=== PATIENT | male | born 1950 | race Caucasian/White ===

== ENCOUNTER → 2024-10-17 14:03 | Outpatient (BNVA) | payer MEDICARE, SELFPAY | PROVIDERS: Family Provider Physician Assistant Medical; PCP Physician Assistant Medical; Referring Provider Family Medicine; Visit Provider Psychiatry & Neurology Neurology | DX: R53.1 Weakness (principal); G62.9 Polyneuropathy, unspecified; Z91.81 History of falling | CPT/HCPCS: 95885; 95910 ==

== ENCOUNTER → 2024-11-01 11:02 | Outpatient (BNVA) | payer MEDICARE, SELFPAY | PROVIDERS: Family Provider Physician Assistant Medical; PCP Physician Assistant Medical; Referring Provider Nurse Practitioner Family; Visit Provider Psychiatry & Neurology Neurology | DX: G62.9 Polyneuropathy, unspecified (principal); M54.9 Dorsalgia, unspecified; R53.1 Weakness; Z86.73 Personal history of transient ischemic attack (TIA), and cerebral infarction without residual deficits | CPT/HCPCS: 99203 ==

== ENCOUNTER → 2025-03-13 09:59 | Outpatient (BNVA) | payer MEDICARE, OTHER, SELFPAY | PROVIDERS: Family Provider Physician Assistant Medical; PCP Physician Assistant Medical; Visit Provider Internal Medicine Cardiovascular Disease | DX: I10 Essential (primary) hypertension (principal); Z79.82 Long term (current) use of aspirin; R00.1 Bradycardia, unspecified; Z86.73 Personal history of transient ischemic attack (TIA), and cerebral infarction without residual deficits; R07.9 Chest pain, unspecified | CPT/HCPCS: 93005; 99204 ==

== ENCOUNTER → 2025-05-15 10:02 | Outpatient (BNVA) | payer MEDICARE, OTHER, SELFPAY | PROVIDERS: Family Provider Physician Assistant Medical; PCP Physician Assistant Medical; Visit Provider Internal Medicine Cardiovascular Disease | DX: R00.1 Bradycardia, unspecified (principal); Z86.73 Personal history of transient ischemic attack (TIA), and cerebral infarction without residual deficits; I10 Essential (primary) hypertension | CPT/HCPCS: 99214 ==

== ENCOUNTER 2025-06-10 09:39 | Observation (INO) | payer MEDICARE, OTHER, SELFPAY ==
[2025-06-10] VITALS (9 sets, daily range): BP systolic 115–151; BP diastolic 73–90; PULSE 54–143; RESP 12–19; TEMP 36.4–37; O2SAT 90–96; BMI 21.8; BMI 22.6
--- NOTE | 2025-06-10 09:40 | CTR_ITS ---
PROCEDURE INFORMATION: Exam: CT Head Without Contrast Exam date and time: 06/10/2025 9:58 AM Age: 74 years old Clinical indication: Syncope and collapse TECHNIQUE: Imaging protocol: Computed tomography of the head without contrast. Radiation optimization: All CT scans at this facility use at least one of these dose optimization techniques: automated exposure control; mA and/or kV adjustment per patient size (includes targeted exams where dose is matched to clinical indication); or iterative reconstruction. COMPARISON: No relevant prior studies available. FINDINGS: Brain: Age related diffuse parenchymal volume loss. There are bilateral periventricular white matter and centrum semiovale hypodensities, consistent with chronic ischemic small vessel disease. Old lacunar infarct in the right basal ganglia. No recent infarct, intracranial bleed or mass effect. Cerebral ventricles: Ex vacuo dilatation of the ventricles. Paranasal sinuses: Frothy secretions in the right sphenoid sinus. Mucosal disease of the right frontal sinus. Mastoid air cells: Visualized mastoid air cells are well aerated. Orbital cavities: Post bilateral cataract surgery. Bones: Unremarkable. No acute fracture. Soft tissues: Unremarkable. CT/CT head wo con* [id number] IMPRESSION: No large territorial infarct or intracranial bleed.
--- NOTE | 2025-06-10 09:40 | XRR_ITS ---
PROCEDURE INFORMATION: Exam: XR Chest Exam date and time: 06/10/2025 9:44 AM Age: 74 years old Clinical indication: Other: Syncope TECHNIQUE: Imaging protocol: Radiologic exam of the chest. Views: 1 view. COMPARISON: No relevant prior studies available. FINDINGS: Lungs: Bibasilar atelectasis. There is no evidence of focal pulmonary consolidation. Pleural spaces: Unremarkable. No pleural effusion. No pneumothorax. Heart/Mediastinum: Unremarkable. No cardiomegaly. Vasculature: There are aortic arch calcifications. Bones/joints: Moderate degenerative disease of bilateral acromioclavicular joints. There are mild degenerative changes of the glenohumeral joint. XR/XR chest 1V portable [id number] IMPRESSION: No acute cardiopulmonary process.
--- NOTE | 2025-06-10 09:40 | ECG_ITS ---
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 Measurements Intervals [place] Rate: 57 P: 19 NV: 150 QRS: -24 QRSD: 107 T: 92 QT: 445 QTc: 435 Interpretive Statements SINUS BRADYCARDIA BORDERLINE LEFT AXIS DEVIATION [QRS AXIS < -20] MINIMAL VOLTAGE CRITERIA FOR LVH, CONSIDER NORMAL VARIANT [MEETS CRITERIA IN ONE OF: R(aVL), S(V1), R(V5), R(V5/V6)+S(V1)] NONSPECIFIC T-WAVE ABNORMALITY Compared to ECG 03/13/2025 10:04:03 No significant changes Electronically Signed On 06-10-2025 17:23:56 SOFT WORK WRAPPER LAYER AND EXAMINER by Jose Huber M.D. [email or web address]
--- OUTSIDE RECORDS SUMMARY | 2025-06-10 09:46 | XMS_ITS | Encounter Summary ---
Author Organization [facility] Address [address] [place] [address] Care Team Providers Care Jockey Valet Name Role Phone Demetrice Breaux MD Primary Care Provider +1- [phone] Encounter Details Date Type Department Care Team (Latest Contact Info) Description 12/21/2001 Outpatient Historical [facility] Family Medicine [address] [phone] Leoncio Napier DO NO ADDRESS ON FILE Pain in limb (Primary Dx) Social History Tobacco Use Types Packs/Day Years Used Date Smoking Tobacco: Never Assessed Sex and Gender Information Value Date Recorded Sex Assigned at Not on file 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
--- OUTSIDE RECORDS SUMMARY | 2025-06-10 09:46 | XMS_ITS | Encounter Summary ---
Author Organization [facility] Address [address] [place] [address] Care Team Providers Care Insurance Law Specialist Name Role Phone Demetrice Breaux MD Primary Care Provider [phone]- [phone] Encounter Details Date Type Department Care Team (Latest Contact Info) Description 07/29/1999 Outpatient Historical [facility]- [facility] [address] [place] [address] Leoncio Napier, NO ADDRESS ON FILE Urticaria, unspecified (Primary Dx) Social History Tobacco Use Types Packs/Day Years Used Date Smoking Tobacco: Never Assessed Sex and Gender Information Value Date Recorded Sex Assigned at Not on file 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
--- OUTSIDE RECORDS SUMMARY | 2025-06-10 09:46 | XMS_ITS | Encounter Summary ---
Author Organization [facility] Address [address] 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
--- OUTSIDE RECORDS SUMMARY | 2025-06-10 09:46 | XMS_ITS | Encounter Summary ---
Author Organization [facility] Address [address] [place] [address] Care Team Providers Care Bill Hiker Name Role Phone Demetrice Breaux MD Primary Care Provider +1- [phone] Encounter Details Date Type Department Care Team (Latest Contact Info) Description 08/09/1998 Outpatient Historical [facility] Family Medicine [address] [address] Leoncio Napier DO NO ADDRESS ON FILE Acute sinusitis, unspecified (Primary Dx) Social History Tobacco Use Types Packs/Day Years Used Date Smoking Tobacco: Never Assessed Sex and Gender Information Value Date Recorded Sex Assigned at Not on file 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
--- OUTSIDE RECORDS SUMMARY | 2025-06-10 09:46 | XMS_ITS | Encounter Summary ---
Author Organization [facility] Address [address] [place] [address] Care Team Providers Care Engine House Helper Name Role Phone Demetrice Breaux MD Primary Care Provider +1- [phone] Encounter Details Date Type Department Care Team (Latest Contact Info) Description 04/09/2000 Outpatient Historical [facility] Family Medicine [address] [phone] Leoncio Napier DO NO ADDRESS ON FILE Sebaceous cyst (Primary Dx) Social History Tobacco Use Types Packs/Day Years Used Date Smoking Tobacco: Never Assessed Sex and Gender Information Value Date Recorded Sex Assigned at Not on file 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
--- OUTSIDE RECORDS SUMMARY | 2025-06-10 09:46 | XMS_ITS | Encounter Summary ---
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 Gender Identity Not on file Sexual Orientation Not on file documented as of this encounter Plan of Treatment Not on file documented as of this encounter Procedures Procedure Name Priority Date/Time Associated Diagnosis Comments PSA MEDICARE SCREEN Routine 09/05/2004 9 :00 AM PROJECT COORDINATOR ALT Routine 09/05/2004 9:00 AM PROJECT COORDINATOR HEMOGLOBIN A1C Routine 09/05/2004 9:00 AM PROJECT COORDINATOR LIPID PANEL Routine 09/05/2004 9:00 AM PROJECT COORDINATOR BASIC METABOLIC PANEL Routine 09/05/2004 9:00 AM PROJECT COORDINATOR documented in this encounter Results * (ABNORMAL) HEMOGLOBIN A1C (09/05/2004 9:00 AM PROJECT COORDINATOR) HEMOGLOBIN A1C 8.6(H) 4.0 - 6.0 %A1C INTERFACE SYSTEM 09/05/2004 9:00 AM PROJECT COORDINATOR Facundo NAJERA CHEMISTRY ORDERABLES Final Re sult Performing Organization Address City/[facility]/ZIP Co de Phone Number INTERFACE SYSTEM Refer to clinic/hospital department * PSA MEDICARE SCREEN (09/05/2004 9:00 AM PROJECT COORDINATOR) PSA 0.4 0.0 - 4.0 ng/mL INTERFACE SYSTEM Comment:Results for patients receiving treatment must be evaluated individually by the physician. 09/05/2004 9:00 AM PROJECT COORDINATOR Facundo NAJERA CHEMISTRY ORDERABLES COM Rebecca l Result Performing Organization Address [facility] Co de Phone Number INTERFACE SYSTEM Refer to clinic/hospital department * ALT (09/05/2004 9:00 AM PROJECT COORDINATOR) ALT 44 21 - 72 IU/L INTERFACE SYSTEM 09/05/2004 9:00 AM PROJECT COORDINATOR Facundo NAJERA CHEMISTRY ORDERABLES Final Re sult Performing Organization Address [facility] Phone Number INTERFACE SYSTEM Refer to clinic/hospital department * (ABNORMAL) LIPID PANEL (09/05/2004 9:00 AM PROJECT COORDINATOR) CHOLESTEROL 160 75 - 200 mg/dL INTERFACE SYSTEM TRIGLYCERIDE 179 0 - 200 mg/dL INTERFACE SYSTEM CALCULATED TOTAL CHOLESTEROL TO HDL RATIO 4.57 3.43 - 4.97 INTERFACE SYSTEM HDL 35(L) 40 - 60 mg/dL INTERFACE SYSTEM Comment: As of 01 the reference range for HDL has been changed from 35-60 to 40-60 in following the recommendations from the National Education Cholesterol Program NECP . LDL CALCULATED 89 0 - 130 mg/dL INTERFACE SYSTEM 09/05/2004 9:00 AM PROJECT COORDINATOR Facundo NAJERA CHEMISTRY ORDERABLES Final Re sult Performing Organization Address [facility] de Phone Number INTERFACE SYSTEM Refer to clinic/hospital department * (ABNORMAL) BASIC METABOLIC PANEL (09/05/2004 9:00 AM PROJECT COORDINATOR) GLUCOSE 146(H) 70 - 110 mg/dL INTERFACE SYSTEM BUN 22(H) 9 - 20 mg/dL INTERFACE SYSTEM CREATININE 1.2 0.7 - 1.5 mg/dL (inactive) INTERFACE SYSTEM SODIUM 142 136 - 145 mEq/L INTERFACE SYSTEM POTASSIUM 3.7 3.5 - 5.0 mEq/L INTERFACE SYSTEM CHLORIDE 110 95 - 110 mEq/L INTERFACE SYSTEM CO2 26 22 - 32 mmol/l INTERFACE SYSTEM ANION GAP 10 9 - 20 mEq/L INTERFACE SYSTEM OSMOLALITY, CALCULATED 297(H) 275 - 295 mOsm/Kg INTERFACE SYSTEM CALCIUM 9.1 8.4 - 10.5 mg/dL INTERFACE SYSTEM 09/05/2004 9:00 AM PROJECT COORDINATOR Facundo NAJERA CHEMISTRY ORDERABLES Final Re michelet Performing Organization Address [facility] Phone Number INTERFACE SYSTEM Refer to clinic/hospital department documented in this encounter Visit Diagnoses Not on filedocumented in this encounter Care Teams Winding Operator Relationship Specialty Start Date End Date Demetrice Breaux MD [address] [facility] [address] [place] [phone] PCP - General Family Practice 08/07/13 documented as of this encounter
--- OUTSIDE RECORDS SUMMARY | 2025-06-10 09:46 | XMS_ITS | Encounter Summary ---
Author Organization [facility] Address [address] [place] [address] Care Team Providers Care Loader Helper Name Role Phone Demetrice Breaux MD Primary Care Provider [phone]- [phone] Encounter Details Date Type Department Care Team (Latest Contact Info) Description 01/04/2004 Outpatient Historical 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
--- OUTSIDE RECORDS SUMMARY | 2025-06-10 09:46 | XMS_ITS | Encounter Summary ---
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
--- OUTSIDE RECORDS SUMMARY | 2025-06-10 09:46 | XMS_ITS | Encounter Summary ---
Author Organization [facility] Address [address] [place] [address] Care Team Providers Care Supervisor Metal Cans Name Role Phone Demetrice Breaux MD Primary Care Provider +1- [phone] Reason for Visit * Reason Comments Medication Refill Encounter Details Date Type Department Care Team (Late st Contact Info) Description 02/17/2017 Refill [facility] Medicine- [address] [phone] Facundo Gray PA NO ADDRESS ON FILE Social History Tobacco Use Types Packs/Day Years Used Date Smoking Tobacco: Never Cigarettes Smokeless Tobacco: Current Chew Alcohol Use Standard Drinks/Week Comments No 0 (1 standard drink = 0.6 oz pur e alcohol) Sex and Gender Information Value Date Recorded Sex Assigned at Not on file 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
--- OUTSIDE RECORDS SUMMARY | 2025-06-10 09:46 | XMS_ITS | Encounter Summary ---
Author Organization [facility] Address [address] [place] [address] Care Team Providers Care Retort Condenser Attendant Name Role Phone Regan Sheehan MD Primary Care Provider +1 -[phone] Encounter Details Date Type Department Care Team (Late st Contact Info) Description 06/05/2025 External Device Data [facility] ABSTRACTION Provider, Abstract NO ADDRESS ON FILE Social History Tobacco Use Types Packs/Day Years Used Date Smoking Tobacco: Never Smokeless Tobacco: Current Chew Alcohol Use Standard Drinks/Week Comments No 0 (1 standard drink = 0.6 oz pur e alcohol) Financial Resource Strain Answer Date R ecorded How hard is it for you to pa y for the very basics like food, housing, medical care, and heating? Not hard at all 05/21/2022 Food Insecurity Answer Date Recorded In the past 12 months, have you worried that your food would run out before you had money to buy more? Never true 05/21/2022 In the past 12 months, did y ou run out of food and didn't have money to buy more? Never true 05/21/2022 Transportation Needs Answer Date Record ed In the past 12 months, has l ack of transportation kept you from medical appointments or from getting medications? No 05/21/2022 Lack of Transportation (Non-Medical) Not on file 05/21/2022 Food Insecurity Answer Date Recorded Do you find you are eating l ess than you should because you can t pay for food? No 06/02/2025 Transportation Needs Answer Date Record ed Have you gone without health care because you didn t have a way to get there? Or worry about transportation for future doctor visits, picker machine operator medication, etc.? No 2024 Housing Stability Answer Date Recorded Do you worry you won t have a steady place to sleep or struggle to pay rent or mortgage? No 06/02/2025 Utility Needs Answer Date Recorded Do you have difficulty payin g for utility costs (electric, water or gas bills)? No 06/02/2025 Medication Needs Answer Date Recorded Have you skipped taking medi cation due to cost or worry you can t afford new medications? No 06/02/2025 Feeling Safe Answer Date Recorded Are you in a relationship wi th someone who hurts you emotionally and/or physically? 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 Neurology [facility] [address] [phone] John Faria MD [address] [place] [phone] documented as of this encounter Visit Diagnoses Not on filedocumented in this encounter Care Teams Retort Condenser Attendant Relationship Specialty Start Date End Date Regan Sheehan MD [address] [place] [phone] PCP - General Family Practice 06/11/23 documented as of this encounter
--- OUTSIDE RECORDS SUMMARY | 2025-06-10 09:46 | XMS_ITS | Clinical Summary ---
Author Organization [facility] Address [address] [place] [address] Care Team Providers Care Child Care Attendant School Name Role Phone Demetrice Breaux MD Primary Care Provider Allergies No known active allergies Medications blood sugar diagnostic (ASCENSIA CONTOUR) [facility] daily. Dx 250.00 50 Strip 6 3 Active multivitamin (DAILY-AKI) tablet Take 1 Tablet by mouth daily. Active PARoxetine HCl (PAXIL) 40 mg tabletIndicatio ns:Moderate single current episode of major depressive disorder (CMS/HCC) TAKE 1 TABLET BY MOUTH DAILY 90 Tablet 3 1 Active lisinopriL (PRINIVIL) 5 mg tablet TAKE 1 TABLET(5 MG) BY MOUTH DAILY 90 Tablet 3 1 Active omeprazole (PriLOSEC) 20 mg Capsule, Delayed Release(E.C.) TAKE 1 CAPSULE BY MOUTH TWICE DAILY 180 Capsule 3 1 Active glipiZIDE (GLUCOTROL) 5 mg tablet TAKE 1 TABLET(5 MG) BY MOUTH TWICE DAILY WITH MEALS 180 Tablet 1 1 Active metFORMIN (GLUCOPHAGE) 1,000 mg tablet TAKE 1 TABLET(1000 MG) BY MOUTH TWICE DAILY WITH MEALS 180 Tablet 3 1 Active amLODIPine (NORVASC) 10 mg tablet Take 1 Tablet (10 mg) by mouth daily. 90 Tablet 3 1 Active lovastatin (MEVACOR) 20 mg tablet TAKE 1 TABLET(20 MG) BY MOUTH DAILY WITH SUPPER FOR CHOLESTEROL 90 Tablet 1 Active Active Problems Problem Noted Date Diagnosed Date Chewing tobacco dependence 08/15/2020 Back pain 12/07/2013 Impacted cerumen 08/15/2009 Immunizations Immunization Administration Dates Next Due (PNEUMOVAX 23)(50 YRS UP) PN EUMOCOCCAL POLYSACCHARIDE (PPV23) 0.5 ML, IM 08/15/2020 (TDVAX)(7 YRS UP) TETANUS AN D DIPHTHERIA TOXOIDS, ADSORBED (2 LF OF TETANUS TOXOID AND 2 LF OF DIPHTHERIA TOXOID), 0.5ML (PF), IM 11/03/2001 Hepatitis A Vaccine 09/15/2006,02/24/2006 Influenza Seasonal Unspecified Formulation IM Family History Medical History Relation Name Comments Cancer Father Diabetes Father Heart Disease Father Diabetes Maternal Grandmother Diabetes Mother Hypertension Mother Relation Name Status Comments Father Maternal Grandmother Mother Social History Tobacco Use Types Packs/Day Years Used Date Smoking Tobacco: Never Cigarettes Smokeless Tobacco: Current Chew Tobacco Cessation:Ready to Q uit: No; Counseling Given: Yes Alcohol Use Standard Drinks/Week Comments No 0 (1 standard drink = 0.6 oz pur e alcohol) Sex and Gender Information Value Date Recorded Sex Assigned at Not on file Legal Sex 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 Gender Identity Not on file Sexual Orientation Not on file Occupation Industry Job Start Date Job End Date Not on file Not on file Not on file Not on file Last Filed Vital Signs Vital Sign Reading Time Taken Comments Blood Pressure 138/72 08/15/2020 1:44 PM BILINGUAL INSIDE SALES REPRESENTATIVE Pulse 59 08/15/2020 1:44 PM BILINGUAL INSIDE SALES REPRESENTATIVE Temperature 36.4 C (97.5 F) 08/15/2020 1:44 PM BILINGUAL INSIDE SALES REPRESENTATIVE Respiratory Rate 15 08/15/2020 1:44 PM BILINGUAL INSIDE SALES REPRESENTATIVE Oxygen Saturation 98% 08/15/2020 1:44 PM BILINGUAL INSIDE SALES REPRESENTATIVE Inhaled Oxygen Concentration - - Weight 84 kg (185 lb 3.2 oz) 08/15/2020 1:44 PM BILINGUAL INSIDE SALES REPRESENTATIVE Height 188 cm (6' 2 ) 08/15/2020 1:44 PM BILINGUAL INSIDE SALES REPRESENTATIVE Body Mass Index 23.78 08/15/2020 1:44 PM BILINGUAL INSIDE SALES REPRESENTATIVE Plan of Treatment Health Maintenance Due Date Last Done Comments FIT/ DNA Q 3 YEARS (AUTO ORDER) 1968 FLEX SIG/CT COLONOGRAPHY Q 5 YEARS (AUTO ORDER) 1968 Traditional Medicare (ACO) A nnual Wellness Visit 1969 COLORECTAL CANCER SCREENING (AUTO ORDER) 11/19/1995 COLORECTAL SCREENING 11/19/1995 FIT-DNA Q 3 years 11/19/1995 Flex Sig/CT Colonography Q 5 years 11/19/1995 RSV VACCINE (60+ or ) (1 - Risk 50-74 years 1-dose series) 2000 ZOSTER VACCINE (1 of 2) 2000 DTAP/TDAP/TD VACCINES (1 - Tdap) 11/04/2001 11/04/19 02 DIABETES ANNUAL FOOT EXAM 03/21/2020 03/21/2019 DIABETES MICROALBUMIN ANNUAL SCREEN 03/21/2020 03/21/2019 DIABETES HBA1C Q 6 MONTHS 02/06/20212020, 02/06/2020, 03/21/2019, Additional history exists LDL CHOLESTEROL ANNUAL 08/09/2021 , 02/06/2020, 03/21/2019, Additional history exists PNEUMOCOCCAL VACCINE 50+ YEA RS (2 of 2 - PCV) 08/15/2021 08/15/2020 Colorectal Cancer Screening (AUTO ORDER) 2021 Colorectal Cancer Screening 2021 FIT/FOBT Q 1 YEAR (AUTO ORDER) 2021 2020 , 09/20/2019 FIT/FOBT Q 1 year 2021 2020 INFLUENZA VACCINE (#1) 2025 05/20/2020, 2018 DIABETES ANNUAL RETINAL EXAM 05/10/2026, 11/25/2022, 07/21/2018, Additional history exists Procedures Procedure Name Priority Date/Time Associated Diagnosis Comments OCCULT BLOOD IMMUNOASSAY, COLORECTAL SCREEN Routine 2020 8:53 AM CDT Encounter for colorectal cancer screening LIPID PANEL Routine 08/09/2020 8:13 AM BILINGUAL INSIDE SALES REPRESENTATIVE Hyperlipidemia, unspecified hyperlipidemia type HEMOGLOBIN A1C Routine 08/09/2020 8:13 AM BILINGUAL INSIDE SALES REPRESENTATIVE Type 2 diabetes mellitus with hyperglycemia, without long-term current use of insulin ([facility]) MICROALBUMIN/CREATI NINE RATIO, RANDOM UR Routine 03/21/2019 3:52 PM CDT Type 2 diabetes mellitus without complication, without long-term current use of insulin ([facility]) DIABETES EYE EXAM Routine 07/21/2018 from Last 3 Months or Most Recently Relevant to Health Maintenance Results * OCCULT BLOOD IMMUNOASSAY, COLORECTAL SCREEN (2020 8:53 AM CDT) OCCULT BLOOD, STOOL Negative Negative 2020 9:[address] [facility] Stool STOOL SPECIMEN / Unknown Collection / Unknown 2020 8:53 AM CDT 2020 8:53 AM CDT Demetrice Breaux MD BODY FLUIDS AND STOOLS Rebecca rodriguez Result [facility] CLIA# [id number] [address] [place] [id number] * (ABNORMAL) HEMOGLOBIN A1C (08/09/2020 8:13 AM BILINGUAL INSIDE SALES REPRESENTATIVE) HEMOGLOBIN A1C 6.5(H) See Comment % 08/09/2020 8:37 PM BILINGUAL INSIDE SALES REPRESENTATIVE [facility] EST. AVG GLUCOSE, A1C 140 mg/dL 08/09/2020 8:37 PM BILINGUAL INSIDE SALES REPRESENTATIVE [facility] Blood Collection / Unknown 08/09/2020 8:13 AM BILINGUAL INSIDE SALES REPRESENTATIVE 08/09/2020 8:11 PM BILINGUAL INSIDE SALES REPRESENTATIVE Narrative [facility] - 08/09/2020 8:37 PM BILINGUAL INSIDE SALES REPRESENTATIVE HGB A1C INTERPRETATION NORMAL: <5.7% PRE-DIABETES: 5.7 - 6.4% DIABETES: 6.5% OR GREATER Falsely low A1C measurements can occur when: 1. Anemia and/or hemolytic anemia is present. 2. Hemoglobin variants present. 3. Renal failure. 4. Transfusion of blood product in the last 120 days. We recommend ordering a fructosamine test([id number]) to more accurately assess glycemic status if any of the above conditions are present. Facundo NAJERA CHEMISTRY ORDERABLES Final Re sult [facility] CLIA# [id number] [place] [address] * (ABNORMAL) LIPID PANEL (08/09/2020 8:13 AM BILINGUAL INSIDE SALES REPRESENTATIVE) CHOLESTEROL 141 <200 mg/dL 08/09/2020 8:51 PM [facility] TRIGLYCERIDE 156(H) <150 mg/dL 08/09/2020 8:51 PM [facility] HDL 33(L) 40 - 59 mg/dL 08/09/2020 8:51 PM [facility] LDL CALCULATED 77 <100 mg/dL 08/09/2020 8:51 PM [facility] NON-HDL CHOLESTEROL 108 <130 mg/dL 08/09/2020 8:51 PM [facility] Blood Collection / Unknown 08/09/2020 8:13 AM BILINGUAL INSIDE SALES REPRESENTATIVE 08/09/2020 8:11 PM BILINGUAL INSIDE SALES REPRESENTATIVE Narrative [facility] - 08/09/2020 8:51 PM BILINGUAL INSIDE SALES REPRESENTATIVE TOTAL CHOLESTEROL mg/dL Desirable <200 Borderline high 200-239 High >=240 TRIGLYCERIDES mg/dL Normal <150 Borderline high 150-199 High 200-499 Very high >=500 HDL CHOLESTEROL mg/dL Low <40 Normal 40-59 Desirable >=60 NON HDL CHOLESTEROL mg/dL Optimal <130 Near Optimal 130-159 Borderline High 160-189 Very High >=190 CALCULATED LDL mg/dL LDL <70, OPTIMAL if have Atherosclerotic cardiovascular disease (ASCVD) or intermediate or higher (>7.5%) 10 year risk of ASCVD including most adults with diabetes. LDL <100, Optimal in adult patients with low (<7.5%) 10 year ASCVD risk LDL 100-160, Suboptimal LDL >160, High LDL >190, Very high ATPIII Guidelines Reference Ranges for Lipid Panels (NCEP/AMA) . Facundo NAEJRA CHEMISTRY ORDERABLES Final Re sult [facility] CLIA# [id number] [place] [address] * (ABNORMAL) MICROALBUMIN/CREATININE RATIO, RANDOM UR (03/21/2019 3:52 PM CDT) MICROALBUMIN, URINE 26.7 No Reference Range mg/dL 03/22/2019 8:[address] [facility] CREATININE, URINE 215.9 40.0 - 278.0 mg/dL 03/22/2019 8:[address] [facility] Comment: Reference Range varies with fluid intake and diet. MICROALBUMIN/ CREAT RATIO, UR 123.7(H) <17.0 mg/g 03/22/2019 8:[address] [facility] Urine URINE SPECIMEN OBTAINED BY CLEAN CATCH PROCEDURE / Unknown Collection / Unknown 03/21/2019 3:52 PM CDT 03/22/2019 7:[address] [facility] - 03/22/2019 8:57 PM CDT Condition Microalbumin/Creat ratio Normal Males <17 Normal Females <25 Microalbuminuria Males 17-299 Microalbuminuria Females 25-299 Overt proteinuria >=300 Facundo NAJERA URINE ORDERABLES Final Result 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
--- OUTSIDE RECORDS SUMMARY | 2025-06-10 09:46 | XMS_ITS | Encounter Summary ---
Author Organization [facility] Address [address] 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
--- OUTSIDE RECORDS SUMMARY | 2025-06-10 09:46 | XMS_ITS | Clinical Summary ---
Author Organization [facility] Address [address] Garces: Epic Prelude ADT HONORIO LINDO [address] Care Team Providers Care Pediatric Allergist Name Role Phone Regan Sheehan MD Primary Care Provider [phone] Allergies No known active allergies Medications omeprazole (PriLOSEC) 20 mg Capsule, Delayed Release(E.C.) TAKE 1 CAPSULE BY MOUTH TWICE DAILY 180 Capsule 3 021 Active diclofenac sodium (VOLTAREN) 1 % gelIndications:Pr imary osteoarthritis of left knee Apply 4 Grams to affected area 2 times daily as needed for Pain. 100 Gram 3 023 Active Additional Information Patient not taking.Reported on 06/02/2025 blood sugar diagnostic (Accu-Chek Guide test strips) Strip USE TO CHECH BLOOD SUGAR ONCE DAILY 100 Strip 2 024 Active metFORMIN (GLUCOPHAGE) 1,000 mg tabletIndications :Type 2 diabetes mellitus with stage 3a chronic kidney disease, without long-term current use of insulin (CMS/HCC) Take 1 Tablet (1,000 mg) by mouth 2 times daily with meals. 200 Tablet 3 025 Active Additional Information Patient taking differently: 500 mgOral TWO TIMES DAILY WITH MEALS, Reported on 06/02/2025 amLODIPine (NORVASC) 10 mg tabletIndications :Essential hypertension,HTN (hypertension), benign Take 1 Tablet (10 mg) by mouth daily. 90 Tablet 3 025 Active aspirin (ECOTRIN EC) 81 mg Tablet, Delayed Release (E.C.) Take 81 mg by mouth daily. Active DULoxetine (CYMBALTA) 20 mg Capsule, Delayed Release(E.C.)Lara cations:Persisten t depressive disorder Take 1 Capsule (20 mg) by mouth daily. 100 Capsule 1 025 Active glipiZIDE (GLUCOTROL) 5 mg tabletIndications :Type 2 diabetes mellitus with stage 3a chronic kidney disease, without long-term current use of insulin ([facility]) TAKE 2 TABLETS BY MOUTH WITH BREAKFAST AND 1 TABLET WITH DINNER 300 Tablet 2 Active lisinopriL (PRINIVIL) 40 mg tablet Take 40 mg by mouth daily. Active hydrALAZINE (APRESOLINE) 100 mg Tablet tablet Take 100 mg by mouth 3 times daily. Active nitroglycerin (NITROSTAT) 0.4 mg Tablet, Sublingual Place 1 Tablet (0.4 mg) under tongue every 5 minutes as needed for Chest Pain. 30 Tablet Active baclofen (LIORESAL) 5 mg tablet Take 1 Tablet (5 mg) by mouth 3 times daily for 10 days. 30 Tablet 025 2024 Active lisinopriL (PRINIVIL) 30 mg tabletIndications :HTN (hypertension), benign Take 1 Tablet (30 mg) by mouth 2 times daily. 200 Tablet 3 025 2024 Discontinued hydrALAZINE (APRESOLINE) 25 mg tabletIndications :HTN (hypertension), benign Take 1 Tablet (25 mg) by mouth 2 times daily. 180 Tablet 3 025 2024 Discontinued(A lternate therapy prescribed) Active Problems Problem Noted Date Diagnosed Date Diabetic polyneuropathy asso ciated with type 2 diabetes mellitus 01/18/2025 Statin myopathy 09/15/2024 Primary osteoarthritis of left knee 08/27/2023 HTN (hypertension), benign 06/11/2023 Type 2 diabetes mellitus wit h stage 3a chronic kidney disease, without long-term current use of insulin 05/21/2022 Essential hypertension 05/21/2022 Stage 3 chronic kidney disease 05/21/2022 Hyperlipidemia 05/21/2022 Recurrent major depressive disorder, in partial remission 05/21/2022 Hypomagnesemia 05/21/2022 Nocturia 05/21/2022 Chewing tobacco dependence 08/15/2020 Back pain 12/07/2013 Impacted cerumen 08/15/2009 Resolved Problems Problem Noted Date Diagnosed Date Resolved Date Moderate single current epis ode of major depressive disorder 05/21/2022 08/27/2023 Encounters Date Type Department Care Team Description 06/05/2025 External Device Data [facility]CTION Provider, Abstract 06/05/2025 External Device Data [facility] Provider, Abstract 06/05/2025 External Device Data [facility] Provider, Abstract 06/02/2025 12:18 AM AIDS NURSE - 06/02/2025 2:44 AM [facility] Emergency [facility] Emergency Medicine [address] [facility] [address] [place] [id number] Junior Sr MD Chest pain, unspecified type (Primary Dx) Discharge Disposition: Home or Self Care 06/02/2025 Travel 05/23/2025 1:40 PM AIDS NURSE Office Visit [address] [phone] Regan Sheehan MD Medicare annual wellness visit, subsequent (Primary Dx); Type 2 diabetes mellitus with stage 3a chronic kidney disease, without long-term current use of insulin (CMS/[facility]); Essential hypertension; Statin myopathy 05/23/[address] [phone] Regan Sheehan MD reminder 05/22/2025 Orders Only [facility] Information Management [place] [address] [place] [address] Provider, Abstract 04/23/[address] [phone] Regan Sheehan MD Type 2 diabetes mellitus with stage 3a chronic kidney disease, without long-term current use of insulin (CMS/HCC) from Last 3 Months Immunizations Immunization Administration Dates Next Due (ADACEL/BOOSTRIX)(10 YR UP) TDAP VACCINE, 0.5ML, IM 12/04/2021 (HAVRIX/VAQTA)(19 YRS UP) HE PATITIS A VACCINE ADULT DOSAGE 1 ML IMM 09/15/2006,02/24/2006 (PNEUMOVAX 23)(50 YRS UP) PN EUMOCOCCAL POLYSACCHARIDE (PPV23) 0.5 ML, IM 08/15/2020 (TDVAX)(7 YRS UP) TETANUS AN D DIPHTHERIA TOXOIDS, ADSORBED (2 LF OF TETANUS TOXOID AND 2 LF OF DIPHTHERIA TOXOID), 0.5ML (PF), IM 11/03/2001 Adacel Vaccine > 7 Yo IM 12/04/2021 Hepatitis A Vaccine 09/15/2006,02/24/2006 INFLUENZA VACCINE HIGH DOSE QUADRIVALENT 65 YR UP PF IM 04/17/2022,05/29/2021 INFLUENZA VACCINE INACTIVATE D ADJUV, (65 YR UP), 0.5ML (PF), IM 05/10/2024 Influenza Seasonal Unspecified Formulation IM ,05/20/2020 PNEUMOVAX (PPSV23) pneumococ rajinder polysaccharide 23-valent Vaccine 08/15/2020 Family History Medical History Relation Name Comments Cancer Father Antwon Diabetes Father Antwon Heart Disease Father Antwon Diabetes Maternal Grandmother Grandmother Diabetes Mother Jennifer Hypertension Mother Jennifer Relation Name Status Comments Father Antwon Maternal Grandmother Grandmother Mother Jennifer Social History Tobacco Use Types Packs/Day Years Used Date Smoking Tobacco: Never Smokeless Tobacco: Current Chew Tobacco Cessation:Ready to [...] worry about transportation for future doctor visits, apple picker medication, etc.? No 2024 Housing Stability Answer [...] on file Legal Sex Male 1:38 AM AIDS NURSE Gender Identity Not on file Sexual Orientation Not on file Last Filed Vital Signs Vital Sign Reading Time Taken Comments Blood Pressure 155/77 06/02/2025 2:00 AM AIDS NURSE Pulse 57 06/02/2025 2:00 AM AIDS NURSE Temperature 37.1 C (98.7 F) 06/02/2025 12:05 AM AIDS NURSE Respiratory Rate 19 06/02/2025 2:00 AM AIDS NURSE Oxygen Saturation 93% 06/02/2025 2:00 AM AIDS NURSE Inhaled Oxygen Concentration - - Weight 79.8 kg (176 lb) 06/02/2025 12:05 AM AIDS NURSE Height 188 cm (6' 2 ) 06/02/2025 12:05 AM AIDS NURSE Body Mass Index 22.6 06/02/2025 12:05 AM AIDS NURSE Plan of Treatment Upcoming Encounters Date Type Department Care Team (Late st Contact Info) Description 07/31/2025 3:15 PM AIDS NURSE Appointment [facility] [place] [address] [place] [address] John Faria MD [address] [place] [phone] Health Maintenance Due Date Last Done Comments FIT/ DNA Q 3 YEARS (AUTO ORDER) 1968 COLORECTAL CANCER SCREENING (AUTO ORDER) 11/19/1995 COLORECTAL SCREENING 11/19/1995 FIT-DNA Q 3 years 11/19/1995 Flex Sig/CT Colonography Q 5 years 11/19/1995 RSV VACCINE (60+ or ) (1 - Risk 50-74 years 1-dose series) 2000 ZOSTER VACCINE (1 of 2) 2000 PNEUMOCOCCAL VACCINE 50+ YEA RS (2 of 2 - PCV) 08/15/2021 08/15/2020, 08/15/2020 Colorectal Cancer Screening 2021 FIT/FOBT Q 1 YEAR (AUTO ORDER) 2021 0 2020, 2020, 2020, Additional history exists FIT/FOBT Q 1 year 2021 2020 INFLUENZA VACCINE (#1) 2025 4, 06/11/2023, 04/17/2022, Additional history exists COVID-19 Vaccine (2024-2 6 season) 2025 06/13/2021, 10/08/2020, 09/10/2020 DIABETES ANNUAL FOOT EXAM 05/10/20252023, 05/21/2022, 03/21/2019 LDL CHOLESTEROL ANNUAL 05/10/2025 4, 09/24/2023, 05/21/2022, Additional history exists Colorectal Cancer Screening (AUTO ORDER) 2025 FLEX SIG/CT COLONOGRAPHY Q 5 YEARS (AUTO ORDER) 2025 2020, 2020 DIABETES HBA1C Q 6 MONTHS 11/20/20252024, 01/25/2025, 09/01/2024, Additional history exists DIABETES ANNUAL RETINAL EXAM 05/10/2026, 02/02/2025, 11/25/2022, Additional history exists DIABETES MICROALBUMIN ANNUAL SCREEN 05/23/2026 05/23/2025, 09/01/2024, 07/31/2024, Additional history exists DIABETES: A1C (Auto Order) 05/23/202605/23, 01/25/2025, 09/01/2024, Additional history exists Traditional Medicare (ACO) A nnual Wellness Visit 05/24/2026 05/23/2025, 05/10/2024, 05/21/2022 DTAP/TDAP/TD VACCINES (3 - T d or Tdap) 12/05/2031 12/04/2021, 12/04/2021, 11/03/2001 Procedures Procedure Name Priority Date/Time Associated Diagnosis Comments TROPONIN 2 HR, 5TH GEN Timed Study 06/02/2025 1:57 AM AIDS NURSE XR CHEST PA OR AP 1 VW Stat 06/02/2025 12:39 AM AIDS NURSE TROPONIN BASELINE, 5TH GEN Stat 06/02/2025 12:08 AM AIDS NURSE BRAIN NATRIURETIC PEPTIDE, BNP OR PROBNP Stat 06/02/2025 12:08 AM AIDS NURSE COMPREHENSIVE METABOLIC PANEL Stat 06/02/2025 12:08 AM AIDS NURSE CBC WITH DIFFERENTIAL Stat 06/02/2025 12:08 AM AIDS NURSE CBC WITH DIFFERENTIAL Routine 05/23/2025 2:36 PM AIDS NURSE Type 2 diabetes mellitus with stage 3a chronic kidney disease, without long-term current use of insulin ([facility]) Essential hypertension COMPREHENSIVE METABOLIC PANEL Routine 05/23/2025 2:36 PM AIDS NURSE Type 2 diabetes mellitus with stage 3a chronic kidney disease, without long-term current use of insulin ([facility]) Essential hypertension HEMOGLOBIN A1C Routine 05/23/2025 2:36 PM AIDS NURSE Type 2 diabetes mellitus with stage 3a chronic kidney disease, without long-term current use of insulin ([facility]) MICROALBUMIN/CREATINI NE RATIO, RANDOM UR Routine 05/23/2025 2:36 PM AIDS NURSE Type 2 diabetes mellitus with stage 3a chronic kidney disease, without long-term current use of insulin ([facility]) Essential hypertension DIABETES EYE EXAM Routine 05/10/2025 11:33 AM CDT LIPID PANEL Routine 05/10/2024 9:46 AM CDT Medicare annual wellness visit, subsequent OCCULT BLOOD IMMUNOASSAY, COLORECTAL SCREEN Routine 2020 8:53 AM CDT from Last 3 Months or Most Recently Relevant to Health Maintenance Results * (ABNORMAL) TROPONIN 2 HR, 5TH GEN (06/02/2025 1:57 AM AIDS NURSE) TROPONIN T, 2 HR 5TH GEN 21(H) <=15 ng/L 06/02/2025 2:21 AM AIDS NURSE [facility] DELTA 2HR TROPONIN T -1 See Interp. 06/02/2025 2:21 AM AIDS NURSE [facility] Blood BLOOD SPECIMEN / Unknown Collection / Unknown 06/02/2025 1:57 AM AIDS NURSE 06/02/2025 2:00 AM AIDS NURSE Narrative [facility] - 06/02/2025 2:21 AM AIDS NURSE Troponin elevated. Delta not changing. Junior Sr MD CHEMISTRY ORDERABLES Fin al Result [id number] [address] [place] [id number] * XR CHEST PA OR AP 1 VW (06/02/2025 12:39 AM AIDS NURSE) Anatomical Region Laterality Modality Chest Computed Radiogr aphy 06/02/2025 12:4 0 AM AIDS NURSE Impressions 06/02/2025 1:09 AM AIDS NURSE IMPRESSION: See below. EXAMINATION: XR CHEST PA OR AP 1 VW CLINICAL HISTORY: ASSOCIATED DIAGNOSIS: Chest Pain ORDERING PROVIDER: JUNIOR SR TECHNOLOGISTS NOTE: COMPARISON: August 2017 FINDINGS/IMPRESSION: Lines, tubes, and devices: None. IV trace left effusion and associated left basilar atelectasis. No pneumothorax. Heart size within normal limits. Narrative Procedure Note Simon Pino MD - 06/02/2025 IMPRESSION: See below. EXAMINATION: XR CHEST PA OR AP 1 VW CLINICAL HISTORY: ASSOCIATED DIAGNOSIS: Chest Pain ORDERING PROVIDER: JUNIOR SR TECHNOLOGISTS NOTE: COMPARISON: August 2017 FINDINGS/IMPRESSION: Lines, tubes, and devices: None. IV trace left effusion and associated left basilar atelectasis. No pneumothorax. Heart size within normal limits. Junior Sr MD DIAGNOSTIC IMAGING ORDER BABAK Final Result * (ABNORMAL) TROPONIN BASELINE, 5TH GEN (06/02/2025 12:08 AM AIDS NURSE) Pathologist [facility] TROPONIN T, BASELINE 5TH GEN 22(H) <=15 ng/L 06/02/2025 12:36 AM [facility] Blood BLOOD SPECIMEN / Unknown Collection / Unknown 06/02/2025 12:08 AM AIDS NURSE 06/02/2025 12:17 AM AIDS NURSE [facility] - 06/02/2025 12:36 AM AIDS NURSE Troponin elevated. Junior Sr MD CHEMISTRY ORDERABLES Fin al Result [id number] [address] [place] [phone] * (ABNORMAL) CBC WITH DIFFERENTIAL (06/02/2025 12:08 AM AIDS NURSE) Only the most recent of2 resultswithin the time period is included. Pathologist [facility] WBC 7.6 4.2 - 9.1 K/uL 06/02/2025 12:20 AM [facility] RBC 4.41(L) 4.63 - 6.08 M/uL 06/02/2025 12:20 AM [facility] HEMOGLOBIN 12.8(L) 13.7 - 17.5 g/dL 06/02/2025 12:20 AM [facility] HEMATOCRIT 39.3(L) 40.1 - 51.0 % 06/02/2025 12:20 AM [facility] MCV 89.1 79.0 - 92.2 fL 06/02/2025 12:20 AM [facility] MCH 29.0 25.7 - 32.2 pg 06/02/2025 12:20 AM [facility] MCHC 32.6 32.3 - 36.5 g/dL 06/02/2025 12:20 AM [facility] RDW 13.1 11.0 - 14.5 % 06/02/2025 12:20 AM [facility] RDW-STDEV 42.5 36.9 - 56.9 fL 06/02/2025 12:20 AM [facility] PLATELETS 270 130 - 400 K/uL 06/02/2025 12:20 AM [facility] MPV 10.8 10.0 - 14.8 fL 06/02/2025 12:20 AM [facility] NEUTROPHILS 76(H) 34 - 68 % 06/02/2025 12:20 AM [facility] LYMPHOCYTES 12(L) 22 - 53 % 06/02/2025 12:20 AM [facility] MONOCYTES 8 5 - 12 % 06/02/2025 12:20 AM [facility] EOSINOPHILS 3 1 - 7 % 06/02/2025 12:20 AM [facility] BASOPHILS 1 0 - 1 % 06/02/2025 12:20 AM [facility] IMMATURE GRANULOCYTES 1 % 06/02/2025 12:20 AM [facility] NEUTROPHIL ABSOLUTE 5.72(H) 1.78 - 5.38 K/uL 06/02/2025 12:20 AM [facility] LYMPHOCYTE ABSOLUTE 0.92(L) 1.20 - 3.40 K/uL 06/02/2025 12:20 AM [facility] MONOCYTE ABSOLUTE 0.62 0.30 - 0.82 K/uL 06/02/2025 12:20 AM [facility] EOSINOPHIL ABSOLUTE 0.20 0.04 - 0.54 K/uL 06/02/2025 12:20 AM [facility] BASOPHILS ABSOLUTE 0.05 0.01 - 0.08 K/uL 06/02/2025 12:20 AM AIDS NURSE [facility] IMMATURE GRANULOCYTES ABSOLUTE 0.04 K/uL 06/02/2025 12:20 AM [facility] Blood BLOOD SPECIMEN / Unknown Collection / Unknown 06/02/2025 12:08 AM AIDS NURSE 06/02/2025 12:17 AM AIDS NURSE us Junior Sr MD HEMATOLOGY ORDERABLES Fi nal Result Performing Organization Address City/[facility]/ZIP Co de Phone Number [facility] CLIA # [id number] [address] [place] [phone] * (ABNORMAL) BRAIN NATRIURETIC PEPTIDE, BNP OR PROBNP (06/02/2025 12:08 AM AIDS NURSE) PROBNP, N TERMINAL 562(H) 0 - 125 pg/mL 06/02/2025 12:36 AM [facility] Comment: INTERPRETIVE COMMENT based on diagnosis: Diagnostic NT pro-BNP cutoffs for Heart Failure in the absence of renal failure is suggested for the following ranges <75 years: <125 pg/mL >=75 years: <450 pg/mL Exclusionary rule out cut-point for Acute Decompensated Heart Failure(ADHF) All ages: <300 pg/mL Diagnostic NT pro-BNP cutoffs for Acute Decompensated Heart Failure(ADHF) in the absence of renal failure is suggested for the following ages <50 years: > 450 pg/mL 50-75 years: > 900 pg/mL >75 years: >1800 pg/mL Blood BLOOD SPECIMEN / Unknown Collection / Unknown 06/02/2025 12:08 AM AIDS NURSE 06/02/2025 12:17 AM AIDS NURSE us Junior Sr MD CHEMISTRY ORDERABLES Fin al Result [facility] CLIA # [id number] [address] [place] [id number] * (ABNORMAL) COMPREHENSIVE METABOLIC PANEL (06/02/2025 12:08 AM [facility]) Only the most recent of2 resultswithin the time period is included. SODIUM 139 136 - 145 mmol/L 06/02/2025 12:36 AM [facility] POTASSIUM 4.0 3.5 - 5.1 mmol/L 06/02/2025 12:36 AM [facility] CHLORIDE 103 98 - 107 mmol/L 06/02/2025 12:36 AM [facility] CO2 24 22 - 29 mmol/L 06/02/2025 12:36 AM [facility] CALCIUM 9.2 8.8 - 10.2 mg/dL 06/02/2025 12:36 AM [facility] BUN 30(H) 8 - 23 mg/dL 06/02/2025 12:36 AM [facility] CREATININE 1.74(H) 0.67 - 1.17 mg/dL 06/02/2025 12:36 AM [facility] Comment:The GFR result is no t clinically significant on patients <18 or >70 years of age. GLUCOSE 191(H) 74 - 99 mg/dL 06/02/2025 12:36 AM [facility] TOTAL PROTEIN 7.2 6.6 - 8.7 g/dL 06/02/2025 12:36 AM [facility] ALBUMIN 4.2 3.5 - 5.2 g/dL 06/02/2025 12:36 AM [facility] BILIRUBIN TOTAL 0.4 0.0 - 1.2 mg/dL 06/02/2025 12:36 AM [facility] ALKALINE PHOSPHATASE 86 40 - 129 U/L 06/02/2025 12:36 AM [facility] AST 11 0 - 50 U/L 06/02/2025 12:36 AM [facility] ALT 5 0 - 50 U/L 06/02/2025 12:36 AM [facility] GFR 41 mL/min/1.7 3 sq meter 06/02/2025 12:36 AM [facility] Comment:eGFR calculated with 2020 CKD-EPI equation. Vegetarian diet, extremely high or low muscle mass, and may affect results. Cystatin C with Glomerular Filtration Rate is a suitable alternative for these patients. ANION GAP 12 5 - 20 mmol/L 06/02/2025 12:36 AM AIDS NURSE [facility] Blood BLOOD SPECIMEN / Unknown Collection / Unknown 06/02/2025 12:08 AM AIDS NURSE 06/02/2025 12:17 AM AIDS NURSE Junior Sr MD CHEMISTRY ORDERABLES Fin al Result Performing Organization Address City/[facility]/ZIP Co de Phone Number [facility] CLIA # [id number] [address] [place] [address] * (ABNORMAL) MICROALBUMIN/CREATININE RATIO, RANDOM UR (05/23/2025 2:36 PM AIDS NURSE) CREATININE, URINE 99 20 - 320 mg/dL [facility] ALBUMIN, URINE 139.7 See Note: mg/dL [facility] Comment: Reference Range: Reference Range Not established Verified by repeat analysis. ALB/CREAT RATIO, URINE 1411(H) <30 mg/g creat [facility] Comment: The ADA defines abnormalities in albumin excretion as follows: Albuminuria Category Result (mg/g creatinine) Normal to Mildly increased <30 Moderately increased 30-299 Severely increased > OR = 300 The ADA recommends that at least two of three specimens collected within a 3-6 month period be abnormal before considering a patient to be within a diagnostic category. Test Performed at: [facility] [id number] [place] [id number] Ruby Nunez MD Urine URINE SPECIMEN OBTAINED BY CLEAN CATCH PROCEDURE / Unknown 05/23/2025 2:36 PM AIDS NURSE 05/24/2025 3:09 AM AIDS NURSE Regan Sheehan MD URINE ORDERABLES Final Re sult Performing Organization Address City/[facility]/ZIP Co de Phone Number [facility] [phone] [facility] [address] [address] [employer] [address] * (ABNORMAL) HEMOGLOBIN A1C (05/23/2025 2:36 PM AIDS NURSE) HEMOGLOBIN A1C 6.6(H) <5.7 % [facility] Comment: For someone without known diabetes, a hemoglobin A1c value of 6.5% or greater indicates that they may have diabetes and this should be confirmed with a follow-up test. For someone with known diabetes, a value <7% indicates that their diabetes is well controlled and a value greater than or equal to 7% indicates suboptimal control. A1c targets should be individualized based on duration of diabetes, age, comorbid conditions, and other considerations. Currently, no consensus exists regarding use of hemoglobin A1c for diagnosis of diabetes for children. ESTIMATED AVERAGE GLUCOSE (MG/DL) 143 mg/dL [facility] ESTIMATED AVERAGE GLUCOSE (MMOL/L) 7.9 mmol/L [facility] Comment: Test Performed at: [facility] [address] [place] [address] Ruby Nunez MD Blood 05/23/2025 2:36 PM AIDS NURSE 05/24/2025 3:11 AM AIDS NURSE Regan Sheehan MD CHEMISTRY ORDERABLES Rebecca l Result [facility] [phone] [employer] [address] [place] [address] * HM DIABETES EYE EXAM (05/10/2025 11:33 AM CDT) us Abstract Provider HEALTH MAINTENANCE Edited Resu lt - Final * (ABNORMAL) LIPID PANEL (05/10/2024 9:46 AM CDT) CHOLESTEROL 114 <200 mg/dL [facility] HDL 30(L) > OR = 40 mg/dL [facility] TRIGLYCERIDE 166(H) <150 mg/dL [facility] LDL CALCULATED 60 mg/dL (calc) [facility] Comment: Reference range: <100 Desirable range <100 mg/dL for primary prevention; <70 mg/dL for patients with CHD or diabetic patients with > or = 2 CHD risk factors. LDL-C is now calculated using the Doug calculation, which is a validated novel method providing better accuracy than the Friedewald equation in the estimation of LDL-C. Alexis ROBERTSON et al. MYRANDA. 2013;310(19): 1846-1525 (http://education.GradeBeam/faq/VBN014) CHOL/HDL RATIO 3.8 <5.0 (calc) [employer] [facility] NON-HDL CHOLESTEROL 84 <130 mg/dL (calc) [employer] [facility] Comment: For patients with diabetes plus 1 major ASCVD risk factor, treating to a non-HDL-C goal of <100 mg/dL (LDL-C of <70 mg/dL) is considered a therapeutic option. Test Performed at: [employer] [facility] [facility] [address] Ruby Nunez MD Blood 05/10/2024 9:46 AM CDT 05/11/2024 2:47 AM CDT us Mae Wheat NP CHEMISTRY ORDERABLES Final Res ult Performing Organization Address City/[facility]/ZIP Co de Phone Number [facility] [phone] [facility] [employer] [address] * OCCULT BLOOD IMMUNOASSAY, COLORECTAL SCREEN (2020 8:53 AM CDT) OCCULT BLOOD, STOOL Negative Negative 2020 9:20 AM CDT [facility] Stool STOOL SPECIMEN / Unknown Collection / Unknown 2020 8:53 AM CDT 2020 8:53 AM CDT us Demetrice Breaux MD BODY FLUIDS AND STOOLS Rebecca rodriguez Result [facility] CLIA# [id number] [address] [place] [phone] from Last 3 Months or Most Recently Relevant to Health Maintenance Insurance MEDICARE PART A AND B [facility] [employer] Care Teams Pediatric Allergist Relationship Specialty Start Date End Date Regan Sheehan MD [address] [facility] [address] [place] [phone] PCP - General Family Practice 06/11/23
--- OUTSIDE RECORDS SUMMARY | 2025-06-10 09:46 | XMS_ITS | Encounter Summary ---
Author Organization [facility] Address [address] [place] [address] Care Team Providers Care Plaster Applicator Name Role Phone Demetrice Breaux MD Primary Care Provider [phone] Encounter Details Date Type Department Care Team (Latest Contact Info) Description 11/03/2001 Outpatient Historical [facility] Family Medicine [address] [address] Carmen Boyle MD NO ADDRESS ON FILE OPEN WOUND OF HAND (Primary Dx) Social History Tobacco Use Types Packs/Day Years Used Date Smoking Tobacco: Never Assessed Sex and Gender Information Value Date Recorded Sex Assigned at Not on file Legal Sex Male 4:54 AM SANDWICH ARTIST Gender Identity Not on file Sexual Orientation Not on file documented as of this encounter Plan of Treatment Not on file documented as of this encounter Visit Diagnoses Diagnosis Open wound of hand except finger(s) alone, without mention of complication- Primary documented in this encounter Care Teams Plaster Applicator Relationship Specialty Start Date End Date Demetrice Breaux MD [address] [address] PCP - General Family Practice 08/07/13 documented as of this encounter
--- OUTSIDE RECORDS SUMMARY | 2025-06-10 09:46 | XMS_ITS | Encounter Summary ---
Author Organization [facility] Address [address] [place] [address] Care Team Providers Care Division Plant Engineer Name Role Phone Demetrice Breaux MD Primary Care Provider [phone]- [phone] Encounter Details Date Type Department Care Team (Latest Contact Info) Description 02/17/2000 Outpatient Historical [facility] Family Medicine [address] [address] Leoncio Napier, NO ADDRESS ON FILE Enthesopathy of unspecified site (Primary Dx) Social History Tobacco Use Types Packs/Day Years Used Date Smoking Tobacco: Never Assessed Sex and Gender Information Value Date Recorded Sex Assigned at Not on file Legal Sex Male 4:54 AM SENIOR TELECOMMUNICATIONS CONSULTANT Gender Identity Not on file Sexual Orientation Not on file documented as of this encounter Plan of Treatment Not on file documented as of this encounter Visit Diagnoses Diagnosis Enthesopathy of unspecified site- Primary documented in this encounter Care Teams Division Plant Engineer Relationship Specialty Start Date End Date Demetrice Breaux MD [address] [address] PCP - General Family Practice 08/07/13 documented as of this encounter
--- OUTSIDE RECORDS SUMMARY | 2025-06-10 09:46 | XMS_ITS | Encounter Summary ---
Author Organization [email or web address] Address [address] [place] [address] Care Team Providers Care Watch Repair Technician Name Role Phone Regan Sheehan MD Primary Care Provider +1 [phone] Encounter Details Date Type Department Care Team [...] worry about transportation for future doctor visits, roll picker medication, etc.? No 2024 Housing Stability [...] on file Legal Sex Male 1:38 AM RADIO COMMUNICATIONS MECHANICIAN Gender Identity Not on file Sexual Orientation Not on file documented as of this encounter Plan of Treatment Upcoming Encounters Date Type Department Care Team (Late st Contact Info) Description 07/31/2025 3:15 PM RADIO COMMUNICATIONS MECHANICIAN Appointment [facility] Neurology [facility] [address] [phone] John Faria MD [address] [place] [phone] documented as of this encounter Visit Diagnoses Not on filedocumented in this encounter Care Teams Watch Repair Technician Relationship Specialty Start Date End Date Regan Sheehan MD [address] [place] [phone] PCP - General Family Practice 06/11/23 documented as of this encounter
--- OUTSIDE RECORDS SUMMARY | 2025-06-10 09:46 | XMS_ITS | Encounter Summary ---
Author Organization [facility] Address [address] [place] [address] Care Team Providers Care Database Programmer Analyst Name Role Phone Demetrice Breaux MD Primary Care Provider +1- [phone] Encounter Details Date Type Department Care Team (Latest Contact Info) Description 07/27/2006 Outpatient Historical [facility] [address] [place] [address] Facundo Gray, [place] NO ADDRESS ON FILE Lumbago (Primary Dx) Social History Tobacco Use Types Packs/Day Years Used Date Smoking Tobacco: Never Assessed Sex and Gender Information Value Date Recorded Sex Assigned at Not on file 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
--- OUTSIDE RECORDS SUMMARY | 2025-06-10 09:46 | XMS_ITS | Encounter Summary ---
Author Organization [facility] Address [address] [place] [address] Care Team Providers Care Design Draftsman Name Role Phone Demetrice Breaux MD Primary Care Provider [phone]- [phone] Encounter Details Date Type Department Care Team (Latest Contact Info) Description 09/28/2000 Outpatient Historical [facility] Family Medicine- [address] [place] [address] Jamin Ge MD [address] [facility] [address] [place] [address] Impacted cerumen (Primary Dx); Unspecified essential hypertension; Cervicalgia Social History Tobacco Use Types Packs/Day Years Used Date Smoking Tobacco: Never Assessed Sex and Gender Information Value Date Recorded Sex Assigned at Not on file 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
--- OUTSIDE RECORDS SUMMARY | 2025-06-10 09:46 | XMS_ITS | Encounter Summary ---
Author Organization [facility] Address [address] [place] [address] Care Team Providers Care Inflated Pad Buffer Name Role Phone Demetrice Breaux MD Primary Care Provider +1- [phone] Encounter Details Date Type Department Care Team (Latest Contact Info) Description 12/31/2000 Outpatient Historical [facility] Medicine- [address] [phone] Leoncio Napier, NO ADDRESS ON FILE Chest pain, unspecified (Primary Dx); Unspecified essential hypertension; Impacted cerumen Social History Tobacco Use Types Packs/Day Years Used Date Smoking Tobacco: Never Assessed Sex and Gender Information Value Date Recorded Sex Assigned at Not on file 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
--- OUTSIDE RECORDS SUMMARY | 2025-06-10 09:46 | XMS_ITS | Encounter Summary ---
Author Organization [facility] Address [address] [place] [address] Care Team Providers Care Swim Instructor Name Role Phone Demetrice Breaux MD Primary Care Provider [phone]- [phone] Encounter Details Date Type Department Care Team (Latest Contact Info) Description 04/20/2000 Outpatient Historical [facility] Family Medicine- [address] [place] [address] May Fernandez NO ADDRESS ON FILE Attention to dressings and sutures (Primary Dx) Social History Tobacco Use Types Packs/Day Years Used Date Smoking Tobacco: Never Assessed Sex and Gender Information Value Date Recorded Sex Assigned at Not on file 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
--- OUTSIDE RECORDS SUMMARY | 2025-06-10 09:46 | XMS_ITS | Encounter Summary ---
Author Organization [facility] Address 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 Gender Identity Not on file Sexual Orientation Not on file documented as of this encounter Plan of Treatment Upcoming Encounters Date Type Department Care Team (Late st Contact Info) Description 07/31/2025 3:15 PM GENERAL EDUCATION INSTRUCTOR Appointment [facility] Neurology [facility] [address] [phone] John Faria MD [address] [place] [phone] documented as of this encounter Visit Diagnoses Not on filedocumented in this encounter Care Teams Driller Hand Relationship Specialty Start Date End Date Regan Sheehan MD [address] [place] [phone] PCP - General Family Practice 06/11/23 documented as of this encounter
--- OUTSIDE RECORDS SUMMARY | 2025-06-10 09:46 | XMS_ITS | Encounter Summary ---
Author Organization [facility] Address [address] [place] [address] Care Team Providers Care Funeral Director/Embalmer/Owner Name Role Phone Demetrice Breaux MD Primary Care Provider Encounter Details Date Type Department Care Team (Latest Contact Info) Description 11/04/2001 Outpatient Historical [facility] Medicine- [address] [phone] Jamin Ge MD [address] [phone] OPEN WOUND OF HAND (Primary Dx); Pain in limb Social History Tobacco Use Types Packs/Day Years Used Date Smoking Tobacco: Never Assessed Sex and Gender Information Value Date Recorded Sex Assigned at Not on file 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
--- OUTSIDE RECORDS SUMMARY | 2025-06-10 09:46 | XMS_ITS | Encounter Summary ---
Author Organization [facility] Address [address] [place] [address] Care Team Providers Care Service Line Bus Cleaner Name Role Phone Demetrice Breaux MD Primary Care Provider Encounter Details Date Type Department Care Team (Latest Contact Info) Description 04/12/2000 Outpatient Historical [facility] Family Medicine- [address] [phone] Jamin Ge MD [address] [phone] Sebaceous cyst (Primary Dx) Social History Tobacco Use Types Packs/Day Years Used Date Smoking Tobacco: Never Assessed Sex and Gender Information Value Date Recorded Sex Assigned at Not on file 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
--- OUTSIDE RECORDS SUMMARY | 2025-06-10 09:46 | XMS_ITS | Encounter Summary ---
Author Organization [facility] Address [address] [place] [address] Care Team Providers Care Senior Environmental Technician Name Role Phone Demetrice Breaux MD Primary Care Provider +1- [phone] Encounter Details Date Type Department Care Team (Latest Contact Info) Description 05/26/2005 Outpatient Historical [facility] Family Medicine- [address] [place] [address] Facundo Gray, PA NO ADDRESS ON FILE Pain in limb (Primary Dx); CONTUSION LEG NOS Social History Tobacco Use Types Packs/Day Years Used Date Smoking Tobacco: Never Assessed Sex and Gender Information Value Date Recorded Sex Assigned at Not on file 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
--- OUTSIDE RECORDS SUMMARY | 2025-06-10 09:46 | XMS_ITS | Encounter Summary ---
Author Organization [facility] Address [address] [place] [address] Care Team Providers Care Hat Band Attacher Name Role Phone Demetrice Breaux MD Primary Care Provider +1- [phone] Encounter Details Date Type Department Care Team (Latest Contact Info) Description 06/17/1999 Outpatient Historical [facility] Family Medicine [address] [phone] Leoncio Napier DO NO ADDRESS ON FILE Unspecified essential hypertension (Primary Dx) Social History Tobacco Use Types Packs/Day Years Used Date Smoking Tobacco: Never Assessed Sex and Gender Information Value Date Recorded Sex Assigned at Not on file 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
--- NOTE | 2025-06-10 09:56 | CTR_ITS ---
PROCEDURE INFORMATION: Exam: CTA Head With Contrast, Arteriography Exam date and time: 06/10/2025 10:02 AM Age: 74 years old Clinical indication: Pain; Syncope and collapse; Other: Neck; Additional info: Neck pain, syncope TECHNIQUE: Imaging protocol: Computed tomographic angiography of the head with contrast. Exam focused on the arteries. 3D rendering (Not supervised by radiologist): MIP and/or 3D reconstructed images were created by the technologist. Radiation optimization: All CT scans at this facility use at least one of these dose optimization techniques: automated exposure control; mA and/or kV adjustment per patient size (includes targeted exams where dose is matched to clinical indication); or iterative reconstruction. Contrast material: OMNI 350; Contrast volume: 100 ml; Contrast route: INTRAVENOUS (IV); COMPARISON: CT head wo con* [id number] 06/10/2025 9:58 AM RADIATION DOSE METRICS: Total DLP (mGy-cm): 452.12 FINDINGS: ANTERIOR CIRCULATION: Right internal carotid artery: Calcified atheroma of the right cavernous ICA but no significant stenosis. Right middle cerebral artery: No occlusion or significant stenosis. No aneurysm. Right anterior cerebral artery: No occlusion or significant stenosis. No aneurysm. Left internal carotid artery: Calcified atheroma of the left cavernous ICA but no significant stenosis. Left middle cerebral artery: No occlusion or significant stenosis. No aneurysm. Left anterior cerebral artery: No occlusion or significant stenosis. No aneurysm. POSTERIOR CIRCULATION: Right vertebral artery: No occlusion or significant stenosis. No aneurysm. Left vertebral artery: No occlusion or significant stenosis. No aneurysm. Basilar artery: No occlusion or significant stenosis. No aneurysm. Right posterior cerebral artery: No occlusion or significant stenosis. No aneurysm. Left posterior cerebral artery: No occlusion or significant stenosis. No aneurysm. Brain: Age related diffuse parenchymal volume loss. There are bilateral periventricular white matter and centrum semiovale hypodensities, consistent with chronic ischemic small vessel disease. No recent infarct, intracranial bleed or mass effect. Cerebral ventricles: No ventriculomegaly. Bones/joints: Unremarkable. No acute fracture. Soft tissues: Unremarkable. PROCEDURE INFORMATION: Exam: CTA Neck With Contrast Exam date and time: 06/10/2025 10:02 AM Age: 74 years old Clinical indication: Pain; Syncope and collapse; Other: Neck; Additional info: Neck pain, syncope TECHNIQUE: Imaging protocol: Computed tomographic angiography of the neck with contrast. Exam focused on the cervical segments of the vasculature. 3D rendering (Not supervised by radiologist): MIP and/or 3D reconstructed images were created by the technologist. Radiation optimization: All CT scans at this facility use at least one of these dose optimization techniques: automated exposure control; mA and/or kV adjustment per patient size (includes targeted exams where dose is matched to clinical indication); or iterative reconstruction. Contrast material: OMNI 350; Contrast volume: 100 ml; Contrast route: INTRAVENOUS (IV); COMPARISON: CT head wo con* [id number] 06/10/2025 9:58 AM RADIATION DOSE METRICS: Total DLP (mGy-cm): 452.12 FINDINGS: Right common carotid artery: No stenosis. No dissection or occlusion. Right internal carotid artery: Calcified atheroma of the right proximal ICA with moderate stenosis. Right external carotid artery: No occlusion or stenosis of the origin. Left common carotid artery: No stenosis. No dissection or occlusion. Left internal carotid artery: No stenosis of the extracranial segment. No dissection or occlusion. Left external carotid artery: No occlusion or stenosis of the origin. Right vertebral artery: No stenosis. No dissection or occlusion. Left vertebral artery: Calcified atheromas at the origin of the left vertebral artery with mild stenosis. Soft tissues: Normal. No significant soft tissue swelling. Bones/joints: The cervical spine demonstrates mild degenerative changes at multiple levels. There are ossific densities in the ligamentum nuchae, consistent with remote trauma. CT/CT angio headneck* [id number] IMPRESSION: 1. No large vessel occlusion. 2. No large territorial infarct or intracranial bleed. IMPRESSION: Moderate stenosis of the right proximal ICA. REFERENCES: NASCET CRITERIA. The degree of stenosis in the cervical segment of the internal carotid artery is based on NASCET criteria. Normal is no stenosis. Mild is less than 50% stenosis. Moderate is 50-69% stenosis. Severe is 70% to 99% stenosis. Total occlusion is no detectable patent lumen.
--- NOTE | 2025-06-10 10:01 | W.ED.SYNCOPE ---
Documented by User: DANIA Moctezuma 06/10/25 12:09 HPI - Syncope General: Chief Complaint: Syncope Stated Complaint: syncope Source: patient and family Mode of arrival: EMS Limitations: no limitations History of Present Illness: Patient is a 74-year-old male with past medical history of diabetes, hypertension, and chronic kidney disease who is brought in by ambulance for a couple of syncopal episodes that occurred just prior to arrival. Patient had noted prodromal symptoms of feeling weak, this was to his son, where he subsequently fell to the ground and reportedly had lost consciousness for up to 30 seconds with no breathing. Ambulance was called, by the time they arrived he was seated in a chair and overall feeling better until he subsequently had another episode, which did not last as long but he again lost consciousness. It was noted by EMS when they arrived that his heart rate went from 60s preepisode to 40s when he was out, and had noted EKG changes of loss of P wave. Patient has noted to me that he has had symptoms of neck pain, chest pain, and shortness of breath over the past few days as well, which is new for him. Overall has just been feeling weak for some time. He has no documented cardiac issues, no history of heart attack or stroke. He was seen a week ago and emergency room in [place] where he did have labs drawn, and at that time unremarkable troponin and cardiac workup altogether. At this time, he is mildly bradycardic but overall hemodynamically stable with no complaints. He has no associated injuries with his syncopal episodes. No headache, visual changes, or focal neurological deficit. Son does tell me that it did take him a little bit afterwards for him to regain energy. complaint: loss of consciousness and collapsed Onset (ago): hour(s) -: second(s) Prodromal symptoms: other (weakness) Witnessed: Yes - by Bystander (son) Injuries sustained associated with event: none Associated symptoms: Reports chest pain; Deny abdominal pain, fever(s), headache(s), lightheadedness or nausea Related Data Home Medications ?Medication ?Instructions ?Recorded ?Confirmed amlodipine 10 mg tablet 10 mg PO DAILY 11/01/24 06/10/25 aspirin 81 mg tablet,delayed 81 mg PO DAILY 11/01/24 06/10/25 release (Adult Aspirin Regimen) duloxetine 20 mg capsule,delayed 20 mg PO ONCE 11/01/24 06/10/25 release baclofen 5 mg tablet 5 mg PO TID 06/10/25 06/10/25 glipizide 5 mg tablet See Rx Instructions .Route .COMPLEX 06/10/25 06/10/25 metformin 1,000 mg tablet 1,000 mg PO BID 06/10/25 06/10/25 nitroglycerin 0.4 mg sublingual See Rx Instructions .Route .COMPLEX 06/10/25 06/10/25 tablet Previous Rx's ?Medication ?Instructions ?Recorded hydralazine 100 mg tablet 100 mg PO TID #270 tabs 05/15/25 lisinopril 40 mg tablet 40 mg PO DAILY #90 tabs 05/15/25 Allergies Allergy/AdvReac Type Severity Reaction Status Date / Time No Known Allergies Allergy Verified 05/15/25 10:07 Review of Systems General: Reports: 10 or more systems reviewed and unremarkable except in HPI and below Const: Reports: fatigue and malaise; Denies: fever(s) or chills Eyes: Denies: change in vision ENMT: Denies: throat pain, ear or mastoid pain or nasal discharge Card: Reports: chest pain and syncope; Denies: palpitations, swelling of feet/ankles or lightheadedness Resp: Reports: dyspnea; Denies: productive cough or wheezing GI: Denies: abdominal pain, nausea, vomiting, diarrhea or constipation : Denies: flank pain, difficulty urinating, dysuria or urinary frequency Musc: Reports: neck pain; Denies: back pain or joint pain Skin/Breast: Denies: rash Neuro: Denies: headache(s), numbness in extremities, weakness in extremities, sensory changes, dizziness, behavioral changes, Slurred speech present or seizure-like activity [facility] ED PFSH: Medical History (Updated 06/10/25 @ 11:40 by DANIA Moctezuma) Diabetes mellitus Hypertension Social History Smoking and tobacco/nicotine status: never used tobacco/nicotine Physical Exam Const: COMMON NORMALS: no acute distress, patient oriented x3 and no limitations GENERAL APPEARANCE: cooperative, comfortable and well developed ORIENTATION/CONSCIOUSNESS: Yes awake, Yes oriented to person, Yes oriented to place and Yes oriented to time HENMT: COMMON NORMALS: normocephalic, atraumatic and hearing grossly normal bilaterally HEAD & SCALP: normocephalic and atraumatic Eye: COMMON NORMALS: Equal, round and reactive pupils present, EOMs intact bilaterally and conjunctivae normal CONJUNCTIVA: Yes conjunctivae normal PUPIL: Yes Equal, round and reactive pupils present Neck/C-Spine: COMMON NORMALS: full ROM, supple and no JVD Chest: OTHER: Midline scar to his chest, this is from cyst removal and not a sternotomy scar. Resp: COMMON NORMALS: normal respiratory effort, No retractions, No use of accessory muscles and clear to auscultation bilaterally AUSCULTATION: clear to auscultation bilaterally Cardio: COMMON NORMALS: no JVD, regular rhythm, No clicks present (Cardio), No murmurs present (Cardio) and No rub (Cardio) RATE: bradycardic RHYTHM: regular rhythm GI: COMMON NORMALS: Normal to inspection, nondistended, normoactive bowel sounds present, Soft to palpation and non-tender AUSCULTATION: Yes normoactive bowel sounds PALPATION: Yes Soft to palpation RECTAL EXAM: Yes deferred Extremity: COMMON NORMALS: normal to inspection, full ROM and capillary refill normal Neuro: COMMON NORMALS: patient oriented x3, CN's II-XII intact bilaterally, moves all extremities, no focal motor deficits and no sensory deficits noted SENSORIUM/ORIENTATION: Yes oriented to person, Yes oriented to place and Yes oriented to time Skin: COMMON NORMALS: no rashes or lesions noted GENERAL SKIN EXAM: no rashes or lesions noted Course Vital Signs: Vital signs: Vital Signs Temperature 98.3 F 06/10/25 09:42 Pulse Rate 143 H 06/10/25 11:46 Respiratory Rate 16 06/10/25 10:18 Blood Pressure 115/83 06/10/25 11:46 Pulse Oximetry 95 06/10/25 11:46 Oxygen Delivery Me thod Room Air 06/10/25 11:46 MDM - Syncope Medical Decision Making Patient presented by ambulance for 2 syncopal episodes that occurred this morning, he has had some prodromal chest pain, shortness of breath, and weakness prior to this but no prior episodes of syncope. Medical history positive for diabetes, hypertension, and chronic kidney disease but no cardiac history. Patient's heart rate has been erratic in the emergency department he will be bradycardic in the 50s but suddenly jump up into the 120s to 140s. However has remained hemodynamically stable with no symptoms and no altered mentation. Has been chest pain-free here in the ED. With him reporting some neck pain and the syncopal episodes, head CT and CTA of head neck were ordered and both unremarkable. A chest CTA ordered to rule out a PE, this was negative. With his lab work, his first troponin was unremarkable, 25, which when reviewing his prior labs this appears to be stable. Currently awaiting 2-hour troponin. First EKG showing sinus bradycardia, but 2-hour EKG showing atrial fibrillation with RVR rate of 126. These EKGs are reviewed physician here in the ED. There is no significant electrolyte derangement to explain any potential arrhythmias, clinically this is presenting as possible sick sinus syndrome and I spoke to dimensional engineer Dr. Genao who is agreeing to consult the patient in the hospital. Then spoke to Dr. Horton, hospitalist, excepting patient to the CICU for observation. Informed patient and family this plan, they agree and all other questions and concerns addressed. Also had staffed this patient with Dr. Duggan here in the emergency department. The case was discussed with the midlevel provider. Evaluation and management service: I agree with the evaluation and management decisions made in this patient's care. Results interpretation: I agree with the study interpretation in this patient's care, I agree with the documentation of the study interpretation. Lab Data 06/10/25 10:19 06/10/25 10:19 Radiology Impressions Chest X-Ray 06/10/25 09:40 IMPRESSION: No acute cardiopulmonary process. Head CT 06/10/25 09:40 IMPRESSION: No large territorial infarct or intracranial bleed. Head/Neck CTA 06/10/25 09:56 IMPRESSION: 1. No large vessel occlusion. 2. No large territorial infarct or intracranial bleed. IMPRESSION: Moderate stenosis of the right proximal ICA. REFERENCES: NASCET CRITERIA. The degree of stenosis in the cervical segment of the internal carotid artery is based on NASCET criteria. Normal is no stenosis. Mild is less than 50% stenosis. Moderate is 50-69% stenosis. Severe is 70% to 99% stenosis. Total occlusion is no detectable patent lumen. Chest CTA 06/10/25 10:07 IMPRESSION: 1. Bibasilar airspace disease worse on the left than on the right. Findings are likely related to atelectasis. 2. Aneurysmal dilatation involving the ascending aorta which measures 4.1 cm in maximal dimension. 3. Nonspecific small and slightly enlarged mediastinal lymph nodes. Laboratory Results WBC 9.63 10^3/uL (3.29-11.43) 06/10/25 10:19 RBC 3.70 10^6/uL (3.85-5.65) L 06/10/25 10:19 Hgb 10.80 g/dL (11.27-16.99) L 06/10/25 10:19 Hct 34.3 % (37-53) L 06/10/25 10:19 MCV 92.7 fl (82-101) 06/10/25 10:19 MCH 29.2 pg (27-33) 06/10/25 10:19 MCHC 31.5 g/dL (30-55) 06/10/25 10:19 RDW 12.7 % (12.1-15.1) 06/10/25 10:19 Plt Count 229 10^3/cmm (157-399) 06/10/25 10:19 MPV 10.6 fL (7.4-10.4) H 06/10/25 10:19 Neut % (Auto) 86.1 % 06/10/25 10:19 Lymph % (Auto) 5.5 % 06/10/25 10:19 [place] % (Auto) 6.2 % 06/10/25 10:19 Eos % (Auto) 1.0 % 06/10/25 10:19 Baso % (Auto) 0.6 % 06/10/25 10:19 Neut # (Auto) 8.28 10^3/uL (1.8-7.7) H 06/10/25 10:19 Lymph # (Auto) 0.5 10^3/uL (0.8-4.8) L 06/10/25 10:19 [place] # (Auto) 0.6 10^3/uL (0.2-0.9) 06/10/25 10:19 Eos # (Auto) 0.1 10^3/uL (0.0-0.8) 06/10/25 10:19 Baso # (Auto) 0.1 10^3/uL (0.0-0.1) 06/10/25 10:19 Nucleated RBC % (auto) 0 % 06/10/25 10:19 Nucleated RBCs # 0.0 /100WBC 06/10/25 10:19 D-Dimer 0.84 ug/mLFEU (0-0.59) H 06/10/25 10:19 Sodium 133 mmol/L (136-145) L 06/10/25 10:19 Potassium 4.4 mmol/L (3.5-5.1) 06/10/25 10:19 Chloride 102 mmol/L (98-107) 06/10/25 10:19 Carbon Dioxide 21 mmol/L (22-29) L 06/10/25 10:19 Anion Gap 14.4 (5-19) 06/10/25 10:19 BUN 25 mg/dL (8-23) H 06/10/25 10:19 Creatinine 1.5 mg/dL (0.7-1.2) H 06/10/25 10:19 GFR Calculation Not Reportable 06/10/25 10:19 Glucose 222 mg/dL (65-115) H 06/10/25 10:19 Calculated Osmolality 287 mOsm/kg (285-295) 06/10/25 10:19 Calcium 7.6 mg/dL (8.5-10.5) L 06/10/25 10:19 Magnesium 1.6 mg/dL (1.7-2.3) L 06/10/25 10:19 Total Bilirubin 0.5 mg/dL (0.15-1.2) 06/10/25 10:19 AST 9 U/L (0-40) 06/10/25 10:19 ALT 8 U/L (0-41) 06/10/25 10:19 Alkaline Phosphatase 89 U/L (40-130) 06/10/25 10:19 Troponin T Baseline 25 ng/L (0-15) H 06/10/25 10:19 NT-Pro-B Natriuret Pep 619 pg/mL (0-125) H 06/10/25 10:19 Total Protein 5.2 g/dL (6.6-8.7) L 06/10/25 10:19 Albumin 3.2 g/dL (3.5-5.2) L 06/10/25 10:19 Globulin 2.0 g/dL (1.3-4.6) 06/10/25 10:19 TSH 2.40 uIU/mL (0.27-4.20) 06/10/25 10:19 Urine Color Yellow (Yellow) 06/10/25 11:08 Urine Appearance Clear (CLEAR) 06/10/25 11:08 Urine pH 6.5 (5-7) 06/10/25 11:08 Ur Specific [place] 1.030 (1.005-1.030) 06/10/25 11:08 Urine Protein 2+ (Negative) A 06/10/25 11:08 Urine Glucose (UA) Trace (Normal) H 06/10/25 11:08 Urine Ketones Trace (Negative) 06/10/25 11:08 Urine Blood Negative (Negative) 06/10/25 11:08 Urine Nitrate Negative (Negative) 06/10/25 11:08 Urine Bilirubin Negative (Negative) 06/10/25 11:08 Urine Urobilinogen 1.0 mg/dL (Negative) 06/10/25 11:08 Ur Leukocyte Esterase Negative (Negative) 06/10/25 11:08 Urine RBC 0-2 /hpf (0-2) 06/10/25 11:08 Urine WBC 0-5 /hpf (0-5) 06/10/25 11:08 Ur Squamous Epith Cells 0-5 /hpf (0-5) 06/10/25 11:08 Amorphous Sediment Not Reportable 06/10/25 11:08 Urine Bacteria None seen /hpf (NONE) 06/10/25 11:08 Hyaline Casts 0.40 /lpf 06/10/25 11:08 All radiology interpretation(s) finalized by discharge Discharge Plan Discharge Patient Disposition: Placed in Observation Admit Provider: Humble Horton Clinical Impression: Syncope Qualifiers: Syncope type: unspecified Qualified Code(s): R55 - Syncope and collapse Chest pain Qualifiers: Chest pain type: unspecified Qualified Code(s): R07.9 - Chest pain, unspecified Coding Level of Care Code 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 [employer] Documented by User: Machelle Duggan MD 06/10/25 12:02 HPI - Syncope General: Chief Complaint: Syncope Stated Complaint: syncope Related Data Home Medications ?Medication ?Instructions ?Recorded ?Confirmed amlodipine 10 mg tablet 10 mg PO DAILY 11/01/24 06/10/25 aspirin 81 mg tablet,delayed 81 mg PO DAILY 11/01/24 06/10/25 release (Adult Aspirin Regimen) duloxetine 20 mg capsule,delayed 20 mg PO ONCE 11/01/24 06/10/25 release baclofen 5 mg tablet 5 mg PO TID 06/10/25 06/10/25 glipizide 5 mg tablet See Rx Instructions .Route .COMPLEX 06/10/25 06/10/25 metformin 1,000 mg tablet 1,000 mg PO BID 06/10/25 06/10/25 nitroglycerin 0.4 mg sublingual See Rx Instructions .Route .COMPLEX 06/10/25 06/10/25 tablet Previous Rx's ?Medication ?Instructions ?Recorded hydralazine 100 mg tablet 100 mg PO TID #270 tabs 05/15/25 lisinopril 40 mg tablet 40 mg PO DAILY #90 tabs 05/15/25 Allergies Allergy/AdvReac Type Severity Reaction Status Date / Time No Known Allergies Allergy Verified 05/15/25 10:07 [facility] ED PFSH: Medical History (Updated 06/10/25 @ 11:40 by DANIA Moctezuma) Diabetes mellitus Hypertension Social History Smoking and tobacco/nicotine status: never used tobacco/nicotine Course Vital Signs: Vital signs: Vital Signs Temperature 98.3 F 06/10/25 09:42 Pulse Rate 143 H 06/10/25 11:46 Respiratory Rate 16 06/10/25 10:18 Blood Pressure 115/83 06/10/25 11:46 Pulse Oximetry 95 06/10/25 11:46 Oxygen Delivery Me thod Room Air 06/10/25 11:46 MDM - Syncope Medical Decision Making The case was discussed with the midlevel provider. Evaluation and management service: I agree with the evaluation and management decisions made in this patient's care. Results interpretation: I agree with the study interpretation in this patient's care, I agree with the documentation of the study interpretation. Lab Data 06/10/25 10:19 06/10/25 10:19 Radiology Impressions Chest X-Ray 06/10/25 09:40 IMPRESSION: No acute cardiopulmonary process. Head CT 06/10/25 09:40 IMPRESSION: No large territorial infarct or intracranial bleed. Head/Neck CTA 06/10/25 09:56 IMPRESSION: 1. No large vessel occlusion. 2. No large territorial infarct or intracranial bleed. IMPRESSION: Moderate stenosis of the right proximal ICA. REFERENCES: NASCET CRITERIA. The degree of stenosis in the cervical segment of the internal carotid artery is based on NASCET criteria. Normal is no stenosis. Mild is less than 50% stenosis. Moderate is 50-69% stenosis. Severe is 70% to 99% stenosis. Total occlusion is no detectable patent lumen. Chest CTA 06/10/25 10:07 IMPRESSION: 1. Bibasilar airspace disease worse on the left than on the right. Findings are likely related to atelectasis. 2. Aneurysmal dilatation involving the ascending aorta which measures 4.1 cm in maximal dimension. 3. Nonspecific small and slightly enlarged mediastinal lymph nodes. Laboratory Results WBC 9.63 10^3/uL (3.29-11.43) 06/10/25 10:19 RBC 3.70 10^6/uL (3.85-5.65) L 06/10/25 10:19 Hgb 10.80 g/dL (11.27-16.99) L 06/10/25 10:19 Hct 34.3 % (37-53) L 06/10/25 10:19 MCV 92.7 fl (82-101) 06/10/25 10:19 MCH 29.2 pg (27-33) 06/10/25 10:19 MCHC 31.5 g/dL (30-55) 06/10/25 10:19 RDW 12.7 % (12.1-15.1) 06/10/25 10:19 Plt Count 229 10^3/cmm (157-399) 06/10/25 10:19 MPV 10.6 fL (7.4-10.4) H 06/10/25 10:19 Neut % (Auto) 86.1 % 06/10/25 10:19 Lymph % (Auto) 5.5 % 06/10/25 10:19 [place] % (Auto) 6.2 % 06/10/25 10:19 Eos % (Auto) 1.0 % 06/10/25 10:19 Baso % (Auto) 0.6 % 06/10/25 10:19 Neut # (Auto) 8.28 10^3/uL (1.8-7.7) H 06/10/25 10:19 Lymph # (Auto) 0.5 10^3/uL (0.8-4.8) L 06/10/25 10:19 [place] # (Auto) 0.6 10^3/uL (0.2-0.9) 06/10/25 10:19 Eos # (Auto) 0.1 10^3/uL (0.0-0.8) 06/10/25 10:19 Baso # (Auto) 0.1 10^3/uL (0.0-0.1) 06/10/25 10:19 Nucleated RBC % (auto) 0 % 06/10/25 10:19 Nucleated RBCs # 0.0 /100WBC 06/10/25 10:19 D-Dimer 0.84 ug/mLFEU (0-0.59) H 06/10/25 10:19 Sodium 133 mmol/L (136-145) L 06/10/25 10:19 Potassium 4.4 mmol/L (3.5-5.1) 06/10/25 10:19 Chloride 102 mmol/L (98-107) 06/10/25 10:19 Carbon Dioxide 21 mmol/L (22-29) L 06/10/25 10:19 Anion Gap 14.4 (5-19) 06/10/25 10:19 BUN 25 mg/dL (8-23) H 06/10/25 10:19 Creatinine 1.5 mg/dL (0.7-1.2) H 06/10/25 10:19 GFR Calculation Not Reportable 06/10/25 10:19 Glucose 222 mg/dL (65-115) H 06/10/25 10:19 Calculated Osmolality 287 mOsm/kg (285-295) 06/10/25 10:19 Calcium 7.6 mg/dL (8.5-10.5) L 06/10/25 10:19 Magnesium 1.6 mg/dL (1.7-2.3) L 06/10/25 10:19 Total Bilirubin 0.5 mg/dL (0.15-1.2) 06/10/25 10:19 AST 9 U/L (0-40) 06/10/25 10:19 ALT 8 U/L (0-41) 06/10/25 10:19 Alkaline Phosphatase 89 U/L (40-130) 06/10/25 10:19 Troponin T Baseline 25 ng/L (0-15) H 06/10/25 10:19 NT-Pro-B Natriuret Pep 619 pg/mL (0-125) H 06/10/25 10:19 Total Protein 5.2 g/dL (6.6-8.7) L 06/10/25 10:19 Albumin 3.2 g/dL (3.5-5.2) L 06/10/25 10:19 Globulin 2.0 g/dL (1.3-4.6) 06/10/25 10:19 TSH 2.40 uIU/mL (0.27-4.20) 06/10/25 10:19 Urine Color Yellow (Yellow) 06/10/25 11:08 Urine Appearance Clear (CLEAR) 06/10/25 11:08 Urine pH 6.5 (5-7) 06/10/25 11:08 Ur Specific [place] 1.030 (1.005-1.030) 06/10/25 11:08 Urine Protein 2+ (Negative) A 06/10/25 11:08 Urine Glucose (UA) Trace (Normal) H 06/10/25 11:08 Urine Ketones Trace (Negative) 06/10/25 11:08 Urine Blood Negative (Negative) 06/10/25 11:08 Urine Nitrate Negative (Negative) 06/10/25 11:08 Urine Bilirubin Negative (Negative) 06/10/25 11:08 Urine Urobilinogen 1.0 mg/dL (Negative) 06/10/25 11:08 Ur Leukocyte Esterase Negative (Negative) 06/10/25 11:08 Urine RBC 0-2 /hpf (0-2) 06/10/25 11:08 Urine WBC 0-5 /hpf (0-5) 06/10/25 11:08 Ur Squamous Epith Cells 0-5 /hpf (0-5) 06/10/25 11:08 Amorphous Sediment Not Reportable 06/10/25 11:08 Urine Bacteria None seen /hpf (NONE) 06/10/25 11:08 Hyaline Casts 0.40 /lpf 06/10/25 11:08 Discharge Plan Discharge Patient Disposition: Placed in Observation Admit Provider: Humble Horton Clinical Impression: Syncope Qualifiers: Syncope type: unspecified Qualified Code(s): R55 - Syncope and collapse Chest pain Qualifiers: Chest pain type: unspecified Qualified Code(s): R07.9 - Chest pain, unspecified Coding Level of Care Code 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
[2025-06-10] MEDS: iohexol 350 mg/mL 500 mL Btl (per mL) IV ×2 (10:04→10:11)
--- NOTE | 2025-06-10 10:07 | CTR_ITS ---
PROCEDURE INFORMATION: Exam: CTA Chest With Contrast Exam date and time: 06/10/2025 10:08 AM Age: 74 years old Clinical indication: Abnormal findings; Abnormal diagnostic tests; Elevated d-dimer; Shortness of breath; Additional info: SOB, cp, syncope TECHNIQUE: Imaging protocol: Computed tomographic angiography of the chest with contrast. Exam focused on the arteries. 3D rendering (Not supervised by radiologist): MIP and/or 3D reconstructed images were created by the technologist. Radiation optimization: All CT scans at this facility use at least one of these dose optimization techniques: automated exposure control; mA and/or kV adjustment per patient size (includes targeted exams where dose is matched to clinical indication); or iterative reconstruction. Contrast material: OMNIPAQUE 350; Contrast volume: 83 ml; Contrast route: INTRAVENOUS (IV); COMPARISON: CR (CHEST, ) 06/10/2025 9:44 AM RADIATION DOSE METRICS: Total DLP (mGy-cm): 395.08 FINDINGS: Pulmonary arteries: Normal. No pulmonary emboli. Aorta: The ascending aorta measures 4.1 cm in size. The descending thoracic aorta is normal in caliber. There is calcified plaque involving the coronary vessels. Lungs: There is bibasilar atelectasis. No non dependent airspace disease is appreciated. No lung nodules or masses are identified. Pleural spaces: Unremarkable. No pneumothorax. No pleural effusion. Heart: The heart is borderline enlarged. There is a small amount of pericardial fluid. Lymph nodes: There are multiple small as well as slightly enlarged mediastinal lymph nodes. Diaphragm: There may be a small hiatal hernia. Bones/joints: Unremarkable. No acute fracture. Soft tissues: Unremarkable. CT/CT angio chest PE protcl [id number] IMPRESSION: 1. Bibasilar airspace disease worse on the left than on the right. Findings are likely related to atelectasis. 2. Aneurysmal dilatation involving the ascending aorta which measures 4.1 cm in maximal dimension. 3. Nonspecific small and slightly enlarged mediastinal lymph nodes.
[2025-06-10 10:35] LABS: Hematocrit 34.3 % (37-53); Hemoglobin 10.80 g/dL (11.27-16.99); Mean Corpuscular HGB Conc 31.5 g/dL (30-55); Mean Corpuscular Hemoglobin 29.2 pg (27-33); Mean Corpuscular Volume 92.7 fl (82-101); Nucleated Red Blood Cells % 0 %; Platelet Count 229 10^3/cmm (157-399); Red Blood Count 3.70 10^6/uL (3.85-5.65); White Blood Count 9.63 10^3/uL (3.29-11.43)
[2025-06-10 11:00] LABS: Troponin(5th) Baseline 25 ng/L (0-15)
[2025-06-10 11:14] LABS: Alanine Aminotransferase 8 U/L (0-41); Albumin Level 3.2 g/dL (3.5-5.2); Alkaline Phosphatase 89 U/L (40-130); Anion Gap 14.4 (5-19); Aspartate Amino Transferase 9 U/L (0-40); Blood Urea Nitrogen 25 mg/dL (8-23); Calcium 7.6 mg/dL (8.5-10.5); Carbon Dioxide 21 mmol/L (22-29); Chloride 102 mmol/L (98-107); Globulin 2.0 g/dL (1.3-4.6); Glucose 222 mg/dL (65-115); Magnesium 1.6 mg/dL (1.7-2.3); NT Pro B Type Natriuretic Pept 619 pg/mL (0-125); Osmolality Calculated 287 mOsm/kg (285-295); Potassium 4.4 mmol/L (3.5-5.1); Sodium 133 mmol/L (136-145); Thyroid Stimulating Hormone 2.40 uIU/mL (0.27-4.20); Total Protein 5.2 g/dL (6.6-8.7)
[2025-06-10 11:14] LABS: Glucose Urine UA Trace (Normal); Nitrate Urine Negative (Negative); Specific Gravity, Urine 1.030 (1.005-1.030)
[2025-06-10 11:19] LABS: Add Urine Microscopic? YES
--- NOTE | 2025-06-10 11:28 | PC.NURSE ---
provider instructed to hold on diltiazem until he speaks with electric appliance installer.
--- NOTE | 2025-06-10 11:52 | ECG_ITS ---
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 Measurements Intervals [place] Rate: 126 P: 0 IA: 0 QRS: -53 QRSD: 145 T: 133 QT: 351 QTc: 509 Interpretive Statements ATRIAL FIBRILLATION WITH RAPID VENTRICULAR RESPONSE, episodes of nonsustained ventricular tachycardia LEFT AXIS DEVIATION [QRS AXIS < -30] NONSPECIFIC INTRAVENTRICULAR CONDUCTION DELAY Compared to ECG 06/10/2025 09:51:14 Non sustained ventricular tachycardia is now present Sinus bradycardia no longer present T-wave abnormality no longer present Electronically Signed On 06-10-2025 17:37:07 FABRIC FINISHER by Jose Huber M.D. [email or web address]
--- NOTE | 2025-06-10 12:29 | PC.NURSE ---
Patient transferred from ED to CSU at 1229 via a bed.
--- NOTE | 2025-06-10 12:46 | PM.HP ---
Providers/Chief Complaint Admitting Physician: Humble Horton Primary Care Provider: Facundo Gray Chief Complaint: syncope History of Present Illness Cornelio Olivas is a 74 year old male PMHx of HTN, CVA, diabetes, CKD Patient presented to the ED on 06/10/2025 via ambulance after experiencing 2 syncopal episodes prior to arrival. He reports a prodrome of sudden weakness, diaphoresis, and nausea before each event, followed by collapse and loss of consciousness. Notes injury to frontal aspect of head. No loss of bowel or bladder function. Denies chest pain and palpitations. Over the past week has been experiencing exertional dyspnea. No recent illness. No similar events in the past. ED course Labs, 06/10/2025 1019 Hemogram WBC 9.63, RBC 3.7, HGB 10.8, HCT 34.3, PLT 229 Coags D-dimer 0.84 CMP Na 133, K 4.4, Mg 1.6, Cl 102, Ca 7.6 CO2 21, AG 14.4, BUN 25, Cr 1.5 AST 9, ALT 8, ALP 89, T.Bili 0.5 T.Protein 5.2, Alb 3.2 Cardiac Trop 25 NT-proBNP 619 Thyroid TSH 2.4 Urinalysis SG 1.030, protein (2+), glucose (tracce). No indication of infection EKG, variable ranging from SR to AFIB to bradycardia CT HEAD No large territorial infarct or intracranial bleed CTA HEAD & NECK No large vessel occlusion No large territorial infarct or intracranial bleed CXR, 06/10/25 No acute cardiopulmonary process CTA chest, 06/10/2025 - Bibasilar airspace disease worse on the left than on the right. Findings are likely related to atelectasis. - Aneurysmal dilatation involving the ascending aorta which measures 4.1 cm in maximal dimension. - Nonspecific small and slightly enlarged mediastinal lymph nodes. Medications/Allergies Home Medications ?Medication ?Instructions ?Recorded ?Confirmed ?Last Taken ?Type amlodipine 10 mg tablet 10 mg PO DAILY 11/01/24 06/10/25 06/10/25 08:00 History aspirin 81 mg tablet,delayed 81 mg PO DAILY 11/01/24 06/10/25 06/10/25 08:00 History release (Adult Aspirin Regimen) duloxetine 20 mg capsule,delayed 20 mg PO ONCE 11/01/24 06/10/25 06/10/25 08:00 History release hydralazine 100 mg tablet 100 mg PO TID #270 tabs 05/15/25 06/10/25 06/10/25 08:00 Rx lisinopril 40 mg tablet 40 mg PO DAILY #90 tabs 05/15/25 06/10/25 06/10/25 08:00 Rx baclofen 5 mg tablet 5 mg PO TID 06/10/25 06/10/25 Unknown History glipizide 5 mg tablet See Rx Instructions .Route .COMPLEX 06/10/25 06/10/25 06/10/25 08:00 History metformin 1,000 mg tablet 1,000 mg PO BID 06/10/25 06/10/25 06/10/25 08:00 History nitroglycerin 0.4 mg sublingual See Rx Instructions .Route .COMPLEX 06/10/25 06/10/25 Unknown History tablet Allergies Allergy/AdvReac Type Severity Reaction Status Date / Time No Known Allergies Allergy Verified 05/15/25 10:07 PFSH Acute PFSH: Medical History Diabetes mellitus Hypertension Social History Smoking and tobacco/nicotine status: never used tobacco/nicotine Vitals/I&O/Wt Last Vital Signs Temp 98.3 F 06/10/25 09:42 Pulse 143 H 06/10/25 11:46 Resp 16 06/10/25 10:18 BP 115/83 06/10/25 11:46 Pulse Ox 95 06/10/25 11:46 O2 Del Method Room Air 06/10/25 11:46 06/09/25 06/10/25 06/10/25 22:59 06:59 14:59 Intake Total 500 / 500 Balance 500 / 500 Weight last 48 hrs Weight 77.111 kg Physical Exam Narrative: Constitutional: NAD. Appears fatigued. Neuro: AOx3, no unilateral weakness or facila asymmetry Head: NC/AT Eyes: PERRLA, EOMI w/o nystagmus Ears: Normal external ears. Hearing intact to normal voice. Nose: Normal external nose. No epistaxis. Throat: MMM Respiratory: CTAB. No accessory muscle use. On room air. Cardiovascular: Irregular w/ ectopic beats. No murmur. Extremities: No edema bilaterally Gastrointestinal: Soft. NT. ND. +BS Genitourinary: No pretty catheter Data 06/10/25 10:19 06/10/25 10:19 A&P Assessment and plan 1. Recurrent syncope: Plan: # Recurrent syncope # Dysrhythmia In ED noted to have episodes of bradycardia and arrhythmia CT HEAD w/o large territorial infarct or intracranial bleed CTA HEAD & NECK with no large vessel occlusion, large territorial infarct or intracranial bleed TSH 2.40 - Tele monitoring - Echo - Cardiology already consulted in ED # Elevated troponin / NSTEMI Denies chest pain New exertional dyspnea and fatigue - Trop 29 -> 30, trend Patient was discussed with cardiology, plan for photo lab specialist in AM for ischemic evaluation # Primary Hypertension - BP down trending, continue to monitor hold home BP meds, re-evaluate on 06/11 # Normocytic anemia - HGB 10.8, stable, trend # Aortic aneurysm on CT imaging - 4.1 cm in diameter without rupture # Hyponatremia # Hypomagnesemia Mg 1.6 - give 2 gm MgSO3 # CKD 3 - stable renal function PDMP PDMP Reviewed: Not Reviewed Attestations Medical Necessity Statement*: The patient admitted under observation status, he will stay less than 2 midnights for the management of syncope and associated cardiac work-up. Coding Level of Care Code 90693 Diagnoses Recurrent syncope R55
[2025-06-10 12:47] LABS: Troponin 5 2HR 30.02 ng/L (0-15); Troponin 5 2HR Delta 5.02 ABS# (0-10)
--- NOTE | 2025-06-10 13:10 | USCV_ITS ---
Cornelio Olivas Age: 74 Gender: M : 1950 Exam Date: 06/10/2025 19:11 Ordering Phys: Pennie Lowery NP Technologist: Charles Napier [place]am [place] [facility] [place] Indication: syncope, dysrhythmia BP: 146 / 88 HR: 59 Rhythm: Sinus Technical Quality: Adequate MEASUREMENTS (Male / Female) Normal Values 2D ECHO LV Diastolic Diameter PLAX 5.8 cm 4.2 - 5.9 / 3.9 - 5.3 cm IVS Diastolic Thickness 1.2 cm 0.6 - 1.0 / 0.6 - 0.9 cm IVS Systolic Thickness 1.4 cm LVPW Diastolic Thickness 0.8 cm 0.6 - 1.0 / 0.6 - 0.9 cm LVPW Systolic Thickness 1.6 cm LVOT Diameter 2.3 cm LV Ejection Fraction 2D Teich 63.1 % LV Ejection Fraction MOD 4C 63.6 % LV Ejection Fraction MOD 2C 51.7 % LV Ejection Fraction 2C AL 51.8 % LA Diameter 4.8 cm RA Systolic Volume 4C AL 87.1 ml RA Systolic Volume 4C MOD 84.2 ml LA Sys Volume AL 85.0 cm cubed LA Sys Volume Index AL 55.6 cm cubed/m squared Aorta at Sinotubular Diameter 3.1 cm IVC Diameter 1.8 cm M-MODE LA Ao Ratio MM 1.4 AV Cusp Separation MM 1.8 cm DOPPLER AV Peak Velocity 296.7 cm/s LVOT Peak Velocity 95.0 cm/s AV Area Cont Eq vti 2.9 cm squared AV Area Cont Eq pk 1.3 cm squared MV Peak Velocity 91.0 cm/s MV Area PHT 2.1 cm squared Mitral E to A Ratio 0.5 TV Peak Velocity 239.3 cm/s TR Peak Velocity 304.0 cm/s TR Peak Gradient 37.0 mmHg TR Mean Velocity 252.0 cm/s TR Mean Gradient 26.4 mmHg TR Velocity Time Integral 74.6 cm PV Peak Velocity 130.0 cm/s RV Ejection Time 0.3 s FINDINGS Left Ventricle Mild diffuse hypokinesis of the inferior wall. Normal LV size with borderline low ejection fraction of 52%.Grade I/IV diastolic dysfunction (abnormal relaxation filling pattern), normal to mildly elevated filling pressures. Right Ventricle Normal right ventricular size and systolic function. Right Atrium Normal right atrial size. Left Atrium Normal left atrial size. IA Septum Normal appearance of the interatrial septum. Mitral Valve Trace mitral valve regurgitation. Aortic Valve Thickened aortic valve. Trace aortic valve regurgitation. Tricuspid Valve Trace tricuspid valve regurgitation. Pulmonic Valve Structurally normal pulmonic valve. Pericardium No pericardial effusion. Aorta Normal diameter of the aortic root and ascending thoracic aorta. IVC Normal inferior vena cava. CONCLUSIONS Mild diffuse hypokinesis of the inferior wall. Normal LV size with borderline low ejection fraction of 52%.Grade I/IV diastolic dysfunction (abnormal relaxation filling pattern), normal to mildly elevated filling pressures. Trace mitral valve regurgitation. Thickened aortic valve. Trace aortic valve regurgitation. Trace tricuspid valve regurgitation. There is no pericardial effusion. There are no intracardiac masses. No similar previous studies available for comparison Dr Jose Huber MD [facility] (Electronically Signed) Final Date: 11 June 2025 07:26 S
--- NOTE | 2025-06-10 14:05 | PC.NURSE ---
Per provider low dose sliding scale of insulin is entered.
[2025-06-10] MEDS: heparin 5,000 unit/mL INJ 1 mL 5000 UNIT SUBCUT (14:15)
--- NOTE | 2025-06-10 14:47 | PM.CONSULT ---
Providers/Reason For Consult Consulting Physician/Specialty*: ABISAI Huber MD/cardiology Reason for Consult*: Patient with tachy or luciana arrhythmias/syncope Requesting Physician: Dr. Lowery Attending Physician: Pennie Lowery NP Primary Care Provider: Facundo Gray History of Present Illness History of Present Illness Cornelio Olivas is a 74 year old male, admitted to the hospital through the emergency room where he presented with recurrent episodes of syncope. This patient apparently has been in his baseline state of health up until this morning when he had the first episode of passing out spell. His elder son apparently went to his house to check on him this morning. He was coming out of the bathroom. The son heard him calling out his name. By the time he got to him, he was on the floor without any respiration. He was found to be unconscious for 30 seconds or so. The son turned him to one side and found him started breathing. The son called 911 and also his younger brother who is a nurse. As the second son arrived at the scene, he was found to be conscious but little tired, still lying in the floor. They managed to get him up on a chair.. While sitting up in the chair, he had another episode of passing out spell. He was somewhat unconscious. EKG taken after this showed a heart rate in the upper 30s. Possibly in atrial fibrillation with a slow ventricular response rate. The patient apparently was complaining of generalized weakness. He did not have any chest pain. No fever, chills or cough. No nausea or vomiting. No bladder or bowel incontinence. No seizure activities. Couple of weeks ago, he was seen in the [facility] emergency room with complaints of chest pain, radiating to the neck and the upper chest. His initial workup was unremarkable except for a delta troponin of around 21, at 2 hours?. He was discharged home from the emergency room. In our emergency room today, he was found to have episodes of nonsustained ventricular tachycardia and atrial fibrillation. One time the heart rate was in the 130s, in atrial fibrillation. He spontaneously converted to sinus rhythm. He had his heart rate also in the 50s. Apparently he did not have any significant symptoms with the fast heartbeat. His 6-hour troponin has a delta of 31 According to the family, the patient has been not feeling well for the last 6 months or so. He was having uncontrolled blood pressure. Also was feeling extremely weak and tired. He was taken off the simvastatin 6 months ago because of the leg pain and weakness. According to the patient, even after stopping the medicine, he continued to have the generalized weakness. Did not have any abdominal pain or dysuria. No back pain. No other specific complaints. Patient has a history of hypertension, type 2 diabetes and dyslipidemia for the last many years. Lately his diabetes and blood pressure has been staying out of control. He also has a history of CVA, chronic knee disease and depressive illness. He was seen recently by Dr. 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 He denies any smoking abuse or alcohol abuse. He lost his 7 years ago or so. He lives alone. Quit working 6 months ago because of his generalized weakness His father had a permanent pacemaker in his 90s. One of his brothers had some kind of heart problems but the details are not known. No other significant family history. Review of Systems Narrative: CONSTITUTIONAL: No fever or chills. Generalized weakness as mentioned above EYES: No blurring of vision or other visual disturbances lately. ENT: No hoarseness of voice, auditory disturbances or sore throat. CARDIOVASCULAR: As mentioned above. RESPIRATORY: No significant cough. GASTROINTESTINAL: No hematemesis or melena. GENITOURINARY: No dysuria or hematuria. INTEGUMENTARY: No skin rashes or history of skin cancer. NEURO: No transient ischemic attacks or amaurosis. PSYCHIATRIC: No history of psychosis or major depression. HEMATOLOGIC: No bleeding disorders or significant anemia. ENDOCRINE: No history of polyuria or polydipsia. MUSCULOSKELETAL: No recent joint pain or swelling. ALLERGY/IMMUNOLOGY: As mentioned above. Medications/Allergies Home Medications ?Medication ?Instructions ?Recorded ?Confirmed ?Last Taken ?Type amlodipine 10 mg tablet 10 mg PO DAILY 11/01/24 06/10/25 06/10/25 08:00 History aspirin 81 mg tablet,delayed 81 mg PO DAILY 11/01/24 06/10/25 06/10/25 08:00 History release (Adult Aspirin Regimen) duloxetine 20 mg capsule,delayed 20 mg PO ONCE 11/01/24 06/10/25 06/10/25 08:00 History release hydralazine 100 mg tablet 100 mg PO TID #270 tabs 05/15/25 06/10/25 06/10/25 08:00 Rx lisinopril 40 mg tablet 40 mg PO DAILY #90 tabs 05/15/25 06/10/25 06/10/25 08:00 Rx baclofen 5 mg tablet 5 mg PO TID 06/10/25 06/10/25 Unknown History glipizide 5 mg tablet See Rx Instructions .Route .COMPLEX 06/10/25 06/10/25 06/10/25 08:00 History metformin 1,000 mg tablet 1,000 mg PO BID 06/10/25 06/10/25 06/10/25 08:00 History nitroglycerin 0.4 mg sublingual See Rx Instructions .Route .COMPLEX 06/10/25 06/10/25 Unknown History tablet Allergies Allergy/AdvReac Type Severity Reaction Status Date / Time No Known Allergies Allergy Verified 05/15/25 10:07 Current Medications Generic Name Dose Route Start Last Admin Trade Name Freq PRN Reason Stop Dose Admin Heparin Sodium (Porcine) 5,000 unit 06/10/25 13:15 06/10/25 14:15 Heparin 5,000 Unit/Ml Inj 1 Ml SUBCUT 5,000 unit Q12H FLORENTIN Administration PFSH Acute PFSH: Medical History (Updated 06/10/25 @ 16:49 by Jose Huber MD) Diabetes mellitus Hypertension Social History Smoking and tobacco/nicotine status: never used tobacco/nicotine Vitals/I&O/Wt Last Vital Signs Temp 97.9 F 06/10/25 13:03 Pulse 127 H 06/10/25 13:03 Resp 17 06/10/25 13:03 BP 133/75 06/10/25 13:03 Pulse Ox 90 06/10/25 13:03 O2 Del Method Room Air 06/10/25 13:03 06/09/25 06/10/25 06/10/25 22:59 06:59 14:59 Intake Total 500 / 500 Balance 500 / 500 Weight last 48 hrs Weight 175 lb 14.862 oz Weight 170 lb Physical Exam Narrative: GENERAL: The patient is alert and oriented times three. Not in any acute distress. [] HEENT: No significant pallor, icterus or lymphadenopathy.Oral cavity: There are no mucous membrane lesions. NECK: Trachea appears to be central. No masses noted. No JVD or thyromegaly appreciated. RESPIRATORY: Chest is symmetrical. No intercostals muscle retraction or any accessory muscle activation. There is no chest wall tenderness. Breath sounds are heard bilaterally. No rales or rhonchi heard. No evidence of any consolidation. [] BREASTS: Deferred. [] HEART: The heart sounds are normal. No S3 or S4. [No significant murmurs] []. No pericardial rub ABDOMEN: No vessel pulsations or distention. No tenderness. No organomegaly appreciated. Bowel sounds are normally heard. [] : Deferred. [] RECTAL: Deferred. [] LYMPHATIC: No lymphadenopathy noted in the neck. EXTREMITIES: No edema or cyanosis. No clubbing. MUSCULOSKELETAL: No acute joint deformities or swelling SKIN: There are no significant rashes or ecchymosis NEUROPSYCHIATRIC: The patient is alert and oriented x3. Appears to be in a good mood. No tremors or rigidity noted. [] Data 06/10/25 10:19 06/10/25 10:19 Other Labs: Laboratory Last Values WBC 9.63 10^3/uL (3.29-11.43) 06/10/25 10:19 RBC 3.70 10^6/uL (3.85-5.65) L 06/10/25 10:19 Hgb 10.80 g/dL (11.27-16.99) L 06/10/25 10:19 Hct 34.3 % (37-53) L 06/10/25 10:19 MCV 92.7 fl (82-101) 06/10/25 10:19 MCH 29.2 pg (27-33) 06/10/25 10:19 MCHC 31.5 g/dL (30-55) 06/10/25 10:19 RDW 12.7 % (12.1-15.1) 06/10/25 10:19 Plt Count 229 10^3/cmm (157-399) 06/10/25 10:19 MPV 10.6 fL (7.4-10.4) H 06/10/25 10:19 Neut % (Auto) 86.1 % 06/10/25 10:19 Lymph % (Auto) 5.5 % 06/10/25 10:19 Charlton % (Auto) 6.2 % 06/10/25 10:19 Eos % (Auto) 1.0 % 06/10/25 10:19 Baso % (Auto) 0.6 % 06/10/25 10:19 Neut # (Auto) 8.28 10^3/uL (1.8-7.7) H 06/10/25 10:19 Lymph # (Auto) 0.5 10^3/uL (0.8-4.8) L 06/10/25 10:19 Charlton # (Auto) 0.6 10^3/uL (0.2-0.9) 06/10/25 10:19 Eos # (Auto) 0.1 10^3/uL (0.0-0.8) 06/10/25 10:19 Baso # (Auto) 0.1 10^3/uL (0.0-0.1) 06/10/25 10:19 Nucleated RBC % (auto) 0 % 06/10/25 10:19 Nucleated RBCs # 0.0 /100WBC 06/10/25 10:19 D-Dimer 0.84 ug/mLFEU (0-0.59) H 06/10/25 10:19 Sodium 133 mmol/L (136-145) L 06/10/25 10:19 Potassium 4.4 mmol/L (3.5-5.1) 06/10/25 10:19 Chloride 102 mmol/L (98-107) 06/10/25 10:19 Carbon Dioxide 21 mmol/L (22-29) L 06/10/25 10:19 Anion Gap 14.4 (5-19) 06/10/25 10:19 BUN 25 mg/dL (8-23) H 06/10/25 10:19 Creatinine 1.5 mg/dL (0.7-1.2) H 06/10/25 10:19 GFR Calculation Not Reportable 06/10/25 10:19 Glucose 222 mg/dL (65-115) H 06/10/25 10:19 POC Glucose 201 mg/dL (70-110) H 06/10/25 12:49 Calculated Osmolality 287 mOsm/kg (285-295) 06/10/25 10:19 Calcium 7.6 mg/dL (8.5-10.5) L 06/10/25 10:19 Magnesium 1.6 mg/dL (1.7-2.3) L 06/10/25 10:19 Total Bilirubin 0.5 mg/dL (0.15-1.2) 06/10/25 10:19 AST 9 U/L (0-40) 06/10/25 10:19 ALT 8 U/L (0-41) 06/10/25 10:19 Alkaline Phosphatase 89 U/L (40-130) 06/10/25 10:19 Troponin T Baseline 25 ng/L (0-15) H 06/10/25 10:19 Troponin T 120 Minute 30.02 ng/L (0-15) H 06/10/25 12:11 Delta Troponin T 5.02 ABS# (0-10) 06/10/25 12:11 Troponin T Hi Sens 6Hr 56.00 ng/L (0-15) H 06/10/25 15:05 Troponin T Hi Sens 6Hr Delta 31.00 ng/L (0-12) H* 06/10/25 15:05 NT-Pro-B Natriuret Pep 619 pg/mL (0-125) H 06/10/25 10:19 Total Protein 5.2 g/dL (6.6-8.7) L 06/10/25 10:19 Albumin 3.2 g/dL (3.5-5.2) L 06/10/25 10:19 Globulin 2.0 g/dL (1.3-4.6) 06/10/25 10:19 TSH 2.40 uIU/mL (0.27-4.20) 06/10/25 10:19 Urine Color Yellow (Yellow) 06/10/25 11:08 Urine Appearance Clear (CLEAR) 06/10/25 11:08 Urine pH 6.5 (5-7) 06/10/25 11:08 Ur Specific Penn 1.030 (1.005-1.030) 06/10/25 11:08 Urine Protein 2+ (Negative) A 06/10/25 11:08 Urine Glucose (UA) Trace (Normal) H 06/10/25 11:08 Urine Ketones Trace (Negative) 06/10/25 11:08 Urine Blood Negative (Negative) 06/10/25 11:08 Urine Nitrate Negative (Negative) 06/10/25 11:08 Urine Bilirubin Negative (Negative) 06/10/25 11:08 Urine Urobilinogen 1.0 mg/dL (Negative) 06/10/25 11:08 Ur Leukocyte Esterase Negative (Negative) 06/10/25 11:08 Urine RBC 0-2 /hpf (0-2) 06/10/25 11:08 Urine WBC 0-5 /hpf (0-5) 06/10/25 11:08 Ur Squamous Epith Cells 0-5 /hpf (0-5) 06/10/25 11:08 Amorphous Sediment Not Reportable 06/10/25 11:08 Urine Bacteria None seen /hpf (NONE) 06/10/25 11:08 Hyaline Casts 0.40 /lpf 06/10/25 11:08 Other data: The latest EKG showed sinus rhythm with poor R wave progression. Diffuse nonspecific ST-T changes. Left axis deviation. One of the initial EKG showed atrial fibrillation with frequent episodes of nonsustained ventricular tachycardia A&P Assessment and plan 1. Recurrent syncope: The etiology is unclear. Possibility of ventricular tachycardia/high degree AV block are considerations. Coronary ischemia could be a major contributing factor. 2. Ventricular arrhythmia: He was found to have episodes of nonsustained ventricular tachycardia on the monitor and in one of the EKGs. 3. NSTEMI (non-ST elevated myocardial infarction): The patient's physical features may suggest a non-ST elevation myocardial infarction. Hemodynamically seems to be stable. 4. New onset atrial fibrillation: He never had any atrial fibrillation. Most likely patient has intermittent atrial fibrillation. He has a history of CVA which could be related to this as well. CT of the neck did not reveal any significant carotid lesions. 5. Bradycardia: Patient apparently has a history of bradycardia. He is not clear at this point whether the bradycardia is causing the passing out or not. Is very possible that he may have an underlying sinus node dysfunction. 6. Aneurysm of ascending aorta without rupture: Patient was found to have ascending aortic aneurysm measuring 4.1 cm in diameter. No evidence of dissection. 7. Stage 3a chronic kidney disease: Patient has a history of chronic kidney disease. This seems to be stable. Plan: Status the non-ST elevation myocardial infarction with IV heparin, Plavix, aspirin, nitrates and statin. Hold off on the beta-jermaine because of bradycardia. Need to be closely monitored on telemetry. Will do an echocardiogram to evaluate LV function and rule out any other pathology. Plavix 300 mg p.o now followed by 75 mg p.o. daily Nitropaste 1 inch every 6 hours to anterior chest wall IV heparin, follow protocol Lipitor 80 mg p.o. now and daily IV fluid no saline 75 cc/h BMP in the morning Troponin T in the morning Echocardiogram as soon as possible Keep n.p.o. after midnight Based on the clinical progress and the results of the above, further recommendations will be made. Possible cardiac catheterization tomorrow. Thank you for the opportunity to evaluate this patient and make these recommendations PDMP PDMP Reviewed: Not Reviewed Coding Level of Care Code 80325 Diagnoses Recurrent syncope R55 Ventricular arrhythmia I49.9 NSTEMI (non-ST elevated myocardial infarction) I21.4 New onset atrial fibrillation I48.91 Bradycardia R00.1 Aneurysm of ascending aorta without rupture I71.21 Presence of rupture: without rupture Stage 3a chronic kidney disease N18.31 Chronic kidney disease stage: stage 3 (moderate) Chronic kidney disease stage 3 subtype: stage 3a (GFR 45-59)
--- NOTE | 2025-06-10 15:38 | ECG_ITS ---
[facility] Test Date: 2025-06-10 Pat Name: Cornelio Olivas Department: Room: 103 Gender: Male Press Feeder: : 1950 Requested By: Bereket Alonso Order Number: [id number] Miguel MD: Jose Huber M.D. Measurements Intervals Harvey Rate: 67 P: 32 NM: 147 QRS: -23 QRSD: 85 T: 81 QT: 413 QTc: 437 Interpretive Statements SINUS RHYTHM BORDERLINE LEFT AXIS DEVIATION [QRS AXIS < -20] NONSPECIFIC T-WAVE ABNORMALITY Compared to ECG 06/10/2025 11:52:30 T-wave abnormality now present Atrial fibrillation no longer present Left bundle-branch block no longer present Electronically Signed On 06-10-2025 17:32:40 ARCHIVES TECHNICIAN by Jose Huber M.D. [email or web address]
[2025-06-10 15:40] LABS: Troponin 5 6HR 56.00 ng/L (0-15)
[2025-06-10 15:42] LABS: Troponin 5 6HR Delta 31.00 ng/L (0-12)
--- NOTE | 2025-06-10 16:28 | PC.NURSE ---
Addendum entered by Chantale Hayes RN 06/10/25 17:47: No heparin bolus given per Dr Huber. Original Note: Per Dr. Huber start NS at 75ml/hr, aspirin 81mg daily, lipitor 80mg daily, nitro paste 1 every 6 hours, plavix 300mg, then plavix 75mg daily, heparin drip 1000 units/hour PTT in 6 hours per protocol. Keep NPO after midnight for director of cardiac cath lab. Orders entered by nursing.
--- NOTE | 2025-06-10 16:49 | PC.NURSE ---
Daughter in law and son stopped me in hallway concerned about patient living condition and mental well being. It was stated the floors are falling in, there is trash pilled up everywhere, mice running around, and patient is raising grandchildren. It was also stated he appears depressed and is seeking medical attention per family wishes. Family would like social science teacher to visit with patient and to discuss other living arrangements. Notified nurse.
[2025-06-10] MEDS: nitroglycerin 1 gm/inch oint Pkt 1 INCH TOPICAL (17:31)
[2025-06-10] MEDS: heparin drip 25,000 UNIT/500 ML PREMIX 22 UNIT IV (17:37)
[2025-06-10] MEDS: magnesium sulfate premix 2 GM/50 ML PIGGYBACK IV (21:07)
[2025-06-10 23:44] LABS: Partial Thromboplastin Time 88.4 SECONDS (23.9-36.7)
[2025-06-11] VITALS (56 sets, daily range): BP systolic 144–194; BP diastolic 76–109; PULSE 0–77; RESP 13–22; TEMP 36.5–37.1; O2SAT 85–96
[2025-06-11] MEDS: nitroglycerin 1 gm/inch oint Pkt 1 INCH TOPICAL (05:30)
[2025-06-11 05:44] LABS: Hematocrit 35.3 % (37-53); Hemoglobin 11.30 g/dL (11.27-16.99); Mean Corpuscular HGB Conc 32.0 g/dL (30-55); Mean Corpuscular Hemoglobin 29.2 pg (27-33); Mean Corpuscular Volume 91.2 fl (82-101); Nucleated Red Blood Cells % 0 %; Platelet Count 288 10^3/cmm (157-399); Red Blood Count 3.87 10^6/uL (3.85-5.65); White Blood Count 7.21 10^3/uL (3.29-11.43)
[2025-06-11 05:50] LABS: Partial Thromboplastin Time 64.0 SECONDS (23.9-36.7)
[2025-06-11 05:59] LABS: Alanine Aminotransferase 9 U/L (0-41); Albumin Level 3.5 g/dL (3.5-5.2); Alkaline Phosphatase 92 U/L (40-130); Anion Gap 13.0 (5-19); Aspartate Amino Transferase 14 U/L (0-40); Blood Urea Nitrogen 26 mg/dL (8-23); Calcium 8.4 mg/dL (8.5-10.5); Carbon Dioxide 22 mmol/L (22-29); Chloride 106 mmol/L (98-107); Globulin 2.5 g/dL (1.3-4.6); Glucose 134 mg/dL (65-115); Magnesium 2.1 mg/dL (1.7-2.3); Osmolality Calculated 291 mOsm/kg (285-295); Potassium 4.0 mmol/L (3.5-5.1); Sodium 137 mmol/L (136-145); Total Protein 6.0 g/dL (6.6-8.7)
--- NOTE | 2025-06-11 07:18 | PM.PN ---
Subjective Subjective: The patient is doing okay. He has not had any recurrence of the fibrillation or ventricular arrhythmia on the monitor. No chest pain. The vitals seems to be fairly stable. His blood pressure is mildly elevated at this morning. Patient seems to be very nervous about the cardiac catheterization. Medications: Medication Review Details: Current Medications Acetaminophen (Acetaminophen 500 Mg Tablet) 500 mg PO Q6H PRN PRN Reason: Mild/Mod Pain Or Temp >/= 101 Aspirin (Aspirin 325 Mg Tablet) 81 mg PO DAILY [facility] Last Admin: 06/11/25 05:18 Dose: 81 mg Atorvastatin Calcium (Atorvastatin 40 Mg Tablet) 80 mg PO BEDTIME [facility]OR[facility] Last Admin: 06/10/25 20:52 Dose: 80 mg Clopidogrel Bisulfate (Clopidogrel 75 Mg Tablet) 75 mg PO DAILY [facility] Last Admin: 06/11/25 05:18 Dose: 75 mg Heparin Sodium (Porcine) (Heparin 5,000 Unit/Ml Inj 1 Ml) 0 unit IVP PRN PRN; Protocol PRN Reason: Heparin Weight Based Protocol -Subsequent Bolus Sodium Chloride (Sodium Chloride 0.9%) 1,000 mls @ 75 mls/hr IV .[id number] [facility] Last Admin: 06/10/25 18:18 Dose: 75 mls/hr Heparin Sodium/Sodium Chloride (Heparin Drip) 25,000 unit in 500 mls @ 0 mls/hr IV CONT [facility]; Protocol Last Titration: 06/11/25 06:12 Dose: 11.9 unit/kg/hr, 19 mls/hr Insulin Human Lispro (Insulin Lispro 100 Unit/1 Ml) 0 unit SUBCUT WM&BEDTIME FLORENTIN; Protocol Last Admin: 06/10/25 20:52 Dose: 4 unit Nitroglycerin (Nitroglycerin 1 Gm/Inch Oint Pkt) 1 inch TOPICAL Q6H [place] Last Admin: 06/11/25 05:30 Dose: 1 inch Senna/Docusate Sodium (Sennosides-Docusate Tablet) 1 tab PO BID PRN PRN Reason: CONSTIPATION Vitals/I&O/Wt Last Vital Signs Temp 98.1 F 06/10/25 23:46 Pulse 60 06/11/25 06:00 Resp 15 06/11/25 03:43 BP 152/78 06/11/25 05:30 Pulse Ox 94 06/11/25 03:43 O2 Del Method Room Air 06/11/25 03:43 06/10/25 06/11/25 06/11/25 22:59 06:59 14:59 Intake Total 770 / 1270 357.683 / 1627.683 Balance 770 / 1270 357.683 / 1627.683 Weight last 48 hrs Weight 174 lb 14.4 oz Weight 175 lb 14.862 oz Weight 170 lb Physical Exam Narrative: GENERAL: The patient is alert and oriented times three. Not in any acute distress. HEENT: No significant pallor, icterus or lymphadenopathy.Oral cavity: There are no mucous membrane lesions. NECK: Trachea appears to be central. No masses noted. No JVD or thyromegaly appreciated. RESPIRATORY: Chest is symmetrical. No intercostals muscle retraction or any accessory muscle activation. There is no chest wall tenderness. Breath sounds are heard bilaterally. No rales or rhonchi heard. No evidence of any consolidation. BREASTS: Deferred. HEART: The heart sounds are normal. No S3 or S4. No significant murmurs. No pericardial rub ABDOMEN: No vessel pulsations or distention. No tenderness. No organomegaly appreciated. Bowel sounds are normally heard. : Deferred. RECTAL: Deferred. LYMPHATIC: No lymphadenopathy noted in the neck. EXTREMITIES: No edema or cyanosis. No clubbing. MUSCULOSKELETAL: No acute joint deformities or swelling SKIN: There are no significant rashes or ecchymosis NEUROPSYCHIATRIC: The patient is alert and oriented x3. Appears to be in a good mood. No tremors or rigidity noted. Data 06/11/25 05:31 06/11/25 05:31 Other Labs: Laboratory Last Values WBC 7.21 10^3/uL (3.29-11.43) 06/11/25 05:31 RBC 3.87 10^6/uL (3.85-5.65) 06/11/25 05:31 Hgb 11.30 g/dL (11.27-16.99) 06/11/25 05:31 Hct 35.3 % (37-53) L 06/11/25 05:31 MCV 91.2 fl (82-101) 06/11/25 05:31 MCH 29.2 pg (27-33) 06/11/25 05:31 MCHC 32.0 g/dL (30-55) 06/11/25 05:31 RDW 13.1 % (12.1-15.1) 06/11/25 05:31 Plt Count 288 10^3/cmm (157-399) 06/11/25 05:31 MPV 10.7 fL (7.4-10.4) H 06/11/25 05:31 Neut % (Auto) 70.6 % 06/11/25 05:31 Lymph % (Auto) 15.7 % 06/11/25 05:31 Day % (Auto) 9.3 % 06/11/25 05:31 Eos % (Auto) 2.9 % 06/11/25 05:31 Baso % (Auto) 0.8 % 06/11/25 05:31 Neut # (Auto) 5.09 10^3/uL (1.8-7.7) 06/11/25 05:31 Lymph # (Auto) 1.1 10^3/uL (0.8-4.8) 06/11/25 05:31 Day # (Auto) 0.7 10^3/uL (0.2-0.9) 06/11/25 05:31 Eos # (Auto) 0.2 10^3/uL (0.0-0.8) 06/11/25 05:31 Baso # (Auto) 0.1 10^3/uL (0.0-0.1) 06/11/25 05:31 Nucleated RBC % (auto) 0 % 06/11/25 05:31 Nucleated RBCs # 0.0 /100WBC 06/11/25 05:31 APTT 64.0 SECONDS (23.9-36.7) H 06/11/25 05:31 D-Dimer 0.84 ug/mLFEU (0-0.59) H 06/10/25 10:19 Sodium 137 mmol/L (136-145) 06/11/25 05:31 Potassium 4.0 mmol/L (3.5-5.1) 06/11/25 05:31 Chloride 106 mmol/L (98-107) 06/11/25 05:31 Carbon Dioxide 22 mmol/L (22-29) 06/11/25 05:31 Anion Gap 13.0 (5-19) 06/11/25 05:31 BUN 26 mg/dL (8-23) H 06/11/25 05:31 Creatinine 1.6 mg/dL (0.7-1.2) H 06/11/25 05:31 GFR Calculation Not Reportable 06/11/25 05:31 Glucose 134 mg/dL (65-115) H 06/11/25 05:31 POC Glucose 127 mg/dL (70-110) H 06/11/25 06:04 Calculated Osmolality 291 mOsm/kg (285-295) 06/11/25 05:31 Calcium 8.4 mg/dL (8.5-10.5) L 06/11/25 05:31 Magnesium 2.1 mg/dL (1.7-2.3) 06/11/25 05:31 Total Bilirubin 0.4 mg/dL (0.15-1.2) 06/11/25 05:31 AST 14 U/L (0-40) 06/11/25 05:31 ALT 9 U/L (0-41) 06/11/25 05:31 Alkaline Phosphatase 92 U/L (40-130) 06/11/25 05:31 Troponin T Baseline 25 ng/L (0-15) H 06/10/25 10:19 Troponin T 120 Minute 30.02 ng/L (0-15) H 06/10/25 12:11 Delta Troponin T 5.02 ABS# (0-10) 06/10/25 12:11 Troponin T Hi Sens 6Hr 56.00 ng/L (0-15) H 06/10/25 15:05 Troponin T Hi Sens 6Hr Delta 31.00 ng/L (0-12) H* 06/10/25 15:05 NT-Pro-B Natriuret Pep 619 pg/mL (0-125) H 06/10/25 10:19 Total Protein 6.0 g/dL (6.6-8.7) L 06/11/25 05:31 Albumin 3.5 g/dL (3.5-5.2) 06/11/25 05:31 Globulin 2.5 g/dL (1.3-4.6) 06/11/25 05:31 TSH 2.40 uIU/mL (0.27-4.20) 06/10/25 10:19 Urine Color Yellow (Yellow) 06/10/25 11:08 Urine Appearance Clear (CLEAR) 06/10/25 11:08 Urine pH 6.5 (5-7) 06/10/25 11:08 Ur Specific [place] 1.030 (1.005-1.030) 06/10/25 11:08 Urine Protein 2+ (Negative) A 06/10/25 11:08 Urine Glucose (UA) Trace (Normal) H 06/10/25 11:08 Urine Ketones Trace (Negative) 06/10/25 11:08 Urine Blood Negative (Negative) 06/10/25 11:08 Urine Nitrate Negative (Negative) 06/10/25 11:08 Urine Bilirubin Negative (Negative) 06/10/25 11:08 Urine Urobilinogen 1.0 mg/dL (Negative) 06/10/25 11:08 Ur Leukocyte Esterase Negative (Negative) 06/10/25 11:08 Urine RBC 0-2 /hpf (0-2) 06/10/25 11:08 Urine WBC 0-5 /hpf (0-5) 06/10/25 11:08 Ur Squamous Epith Cells 0-5 /hpf (0-5) 06/10/25 11:08 Amorphous Sediment Not Reportable 06/10/25 11:08 Urine Bacteria None seen /hpf (NONE) 06/10/25 11:08 Hyaline Casts 0.40 /lpf 06/10/25 11:08 Other data: The echocardiogram from 06/10/2025 Mild diffuse hypokinesis of the inferior wall. Normal LV size with borderline low ejection fraction of 52%.Grade I/IV diastolic dysfunction (abnormal relaxation filling pattern), normal to mildly elevated filling pressures. Trace mitral valve regurgitation. Thickened aortic valve. Trace aortic valve regurgitation. Trace tricuspid valve regurgitation. There is no pericardial effusion. There are no intracardiac masses. No similar previous studies available for comparison A&P Assessment and plan 1. Recurrent syncope: The etiology is unclear. Possibility of ventricular tachycardia/high degree AV block are considerations. Coronary ischemia could be a major contributing factor. No significant arrhythmia on the telemetry, so far 2. Ventricular arrhythmia: He was found to have episodes of nonsustained ventricular tachycardia on the monitor and in one of the EKGs. Seems to have no recurrence 3. NSTEMI (non-ST elevated myocardial infarction): The patient's physical features may suggest a non-ST elevation myocardial infarction. Hemodynamically seems to be stable. 4. New onset atrial fibrillation: He never had any atrial fibrillation. Most likely patient has intermittent atrial fibrillation. He has a history of CVA which could be related to this as well. CT of the neck did not reveal any significant carotid lesions. 5. Bradycardia: Patient apparently has a history of bradycardia. It is not clear at this point whether the bradycardia is causing the passing out or not. It Is very possible that he may have an underlying sinus node dysfunction. 6. Aneurysm of ascending aorta without rupture: Patient was found to have ascending aortic aneurysm measuring 4.1 cm in diameter. No evidence of dissection. 7. Stage 3a chronic kidney disease: Patient has a history of chronic kidney disease. This seems to be stable. The BUN/creatinine this morning is 26/1.6 Plan: I explained to the patient on the implications of all the test findings. In order to further evaluate the patient's coronary status, he requires a cardiac catheterization. The risks and benefits were discussed in detail with the patient. The risk of bleeding, hematoma, vascular injury, myocardial infarction, myocardial perforation, malignant cardiac arrhythmias ,CVA, renal failure and other concomitant complications were explained in detail. Because of his chronic kidney disease, he carries a high risk for contrast-induced nephropathy Patient is wanting to go ahead with the procedure even though he is somewh Dr. Abbott, the on-call poultry hatchery man, to assume further care of this patient PDMP PDMP Reviewed: Not Reviewed Attestations Medical Necessity Statement*: Patient requires continued hospital stay for close monitoring and further management Coding Level of Care Code 97291 Diagnoses Recurrent syncope R55 Ventricular arrhythmia I49.9 NSTEMI (non-ST elevated myocardial infarction) I21.4 New onset atrial fibrillation I48.91 Bradycardia R00.1 Aneurysm of ascending aorta without rupture I71.21 Presence of rupture: without rupture Stage 3a chronic kidney disease N18.31 Chronic kidney disease stage: stage 3 (moderate) Chronic kidney disease stage 3 subtype: stage 3a (GFR 45-59)
--- NOTE | 2025-06-11 09:50 | PC.CHAP ---
Pastoral Care Encounter/Spiritual Assessment Type of Contact [] Declined clinical physician assistant visit [] Patient/Family/Request visit [] Outpatient visit [] Follow-up visit [] Physician referral [] Code/Alert [x] Routine visit [] Staff referral [] Actively dying [] Patient sleeping [x] Family support [] [] Out of room [] Palliative care [] [] Receiving care in room [] Pre-surgical visit [] Trauma [] Long length of stay [] ICU visit [] Other: Relational/Emotional Strength [] Patient feels connected with others/family/visitors/staff [] Distress [] Loneliness/isolation [] Abandonment Spirituality of Patient [x] Person of Do [x] Attends Catholic of their Do [x] Believes in Prayer [x] Reads Bible or Baptist materials [] There are Spiritual issues to be addressed Sales Force Developer Interventions [x] Prayer [x] Active listening [] Non-anxious presence [] Spiritual/emotional support [] Crisis/trauma care [] Spiritual counseling [] Bereavement support [] Provided bereavement packet [x] Provided Bible/devotional materials [] Provided toy/stuffed animal, coloring book to patient or family member [] Provided Communion [] Anointing/[place] [] Salvation [x] Completed spiritual assessment [] Other: Impact on Illness or Injury [] Angry [] Fearful [] Anxious [] Often cries [] Exhaustion [] Unable to work [] Unable to attend uatsdin [] Unable to walk/stand [] Unable to read [] Unable to drive [] Unable to eat/drink [] Unable to sleep [] Unable to be with family [] Patient intubated [] Other: Summary Time spent with patient 30 min
--- NOTE | 2025-06-11 10:00 | XACV_ITS ---
Exam Room: 103 Ht: 188 cm Wt: 79 kg BSA: 2.03 m2 Gender: Male : 1950 Performing Physician(s): Dr. Abbott Any Known Allergies: No known allergies Exam Priority: Routine Procedure(s): Procedure Description: Diagnostic procedure YOLANDEMayo FARIAS; Diagnostic Cath Status: Urgent Diagnostic Findings * Left main: Short vessel with no significant disease. * LAD: Large size vessel. There is aneurysmal dilatation in the proximal segment followed by severe 80% focal stenosis just before the large first septal branch. Mid segment is diffusely diseased with focal areas of 80 to 90% stenosis. Distal vessel has mild to moderate diffuse disease. * Left circumflex artery: Medium size vessel. There is 90% stenosis in the mid -distal vessel. * RCA: large size vessel with areas of aneurysmal dilatation in the proximal and distal vessel. There is a 40 to 50% stenosis in mid segment. The medium size PDA is subtotally occluded due to apparently thrombotic diffuse stenosis. The RPL branch is without any significant disease. * No disease noted in the Left Main, Left Anterior Descending, Right, or Circumflex coronary arteries. * Coronary angiography shows right dominance. Conclusions 1. Significant three-vessel disease. 2. No disease noted in the Left Main, Left Anterior Descending, Right, or Circumflex coronary arteries. Recommendations * 1. Cardiac surgery evaluation for possible CABG. * 2. Continue aggressive medical management post procedure. Interventional RX Recommendation: none Diagnostic RX Recommendation: CABG Anticoagulation: Heparin Post Op Diagnosis: Description: Triple-vessel CAD Pressures Phase:Rest AO : 146 / 92 ( 119 ) @ 11:30:00 AM 148 / 97 ( 121 ) @ 11:33:00 AM 144 / 89 ( 115 ) @ 11:35:00 AM Clinical Evaluation EBL: 5mL-10mL Procedural Details Procedure Consent Obtained. Current Diagnosis : NSTEMI. Pre-Procedure Time Out. Identified patient by full name and date of as verbalized by the patient/guarantor. Does the consent match the physician's order: Yes. Accurate & Complete Informed Consent: Yes. Inpatient/Outpatient History & Physical on Chart: Yes. If H&P is completed, is and addenduem needed: No; If yes, is the addendum complete: N/A. Visualize and Verify Site with Patient/Guarantor: N/A. Relevant Radiology Images available: Yes. Pre-op teaching completed and patient verbalized understanding. The risks, benefits, and alternatives of sedation and/or procedure were discussed by physician. The patient agrees to continue. Procedure started. [facility] Clinical Fraility Score: 4: Vulnerable. Meals On Wheels Driver Indications: ACS > 24 hours. Chest Pain Symptom Assessment: Typical Angina Symptoms. Correct patient, site and procedure confirmed by cath team. Current diagnosis: NSTEMI. PERRLA. Strong, equal hand accounting practice manager bilaterally. Lungs clear x 5 lobes. IV Site on Arrival: 20 gauge in the left anticubital. IV Fluids: 0.9% NaCl at KVO. 0 mL infused prior to laboratory operations coordinator. Pre Procedural Pulses: right radial was 3+. Oxygen started at 2liters/min via nasal canula. right groin was prepped with chloroprep then draped in the usual sterile fashion. right radial was prepped with chloroprep then draped in the usual sterile fashion. Baseline sample Acquired. HR: 57 BPM. Physician arrived. Physician scrubbed in. Immediate Pre-Procedure Time Out. Correct Patient: Yes; Correct Procedure: Yes; Correct Site: Yes; Correct Patient Position: Yes; Correct Supplies: Yes; Dried Flammable Prep: Yes; Blood Products Available: N/A;. Lidocaine 1% infiltrated to the right radial. Arterial access obtained. A 5 malay JL3.5 catheter in over wire. Multiple views taken of left coronary artery. Catheter removed over the exchange wire. Multiple views taken of right coronary artery. Catheter removed over the exchange wire. Vital chart was stopped. A TR Band was successful obtaining hemostatsis at the Right Radial artery insertion site. Post Procedure: Pulses reassessed and unchanged. PERRLA. Strong, equal hand accounting practice manager bilaterally. No VTE prophylaxis required. Medication's Wasted: Nitro = 49.8 mcg. Medication's Wasted: Heparin = 6000 units. Total IV fluids: 49 mL. Post-op diagnosis: Multivessel CAD. Complications: None. Estimated blood loss: 5mL-10mL. Responsiveness - Normal response to verbal stimuli; alert and oriented, PERRLA. Airway - Unaffected, no intervention required; spontaneous ventilation. Circulation: W/N/L, pulses unchanged. Nausea/Vomiting: No. Procedure completed. Patient transferred by bed to 1st floor. Access Site Site: Right Radial artery Sheath Size: 6 Fr Hemostasis Method: TR Band Hemostasis Success: Successful Procedure Medications Start: 11:04 AM Stop: 11:04 AM Medication: Fentanyl Amount: 25 mcg Route: I.V. Start: 11:16 AM Stop: 11:16 AM Medication: Versed Amount: 1 mg Route: I.V. Start: 11:16 AM Stop: 11:16 AM Medication: Fentanyl Amount: 50 mcg Route: I.V. Start: 11:24 AM Stop: 11:24 AM Medication: Nitrogylcerin Amount: 200 mcg Route: I.A. Start: 11:28 AM Stop: 11:28 AM Medication: Versed Amount: 1 mg Route: I.V. Start: 11:28 AM Stop: 11:28 AM Medication: Fentanyl Amount: 25 mcg Route: I.V. I, the attending physician, have reviewed and verified all procedure medications. Yes, all medications given per verbal order History/Risk Factors Hypertension: Yes Dyslipidemia: No Peripheral Arterial Disease (PAD): No Myocardial Infarction (NH): No Obesity: No Renal Disease: No Tobacco Use: Never Prior Interventions PCI: No CABG: No Valve Surgery: No Report Signatures Finalized by Sacha Abbott MD on 06/11/2025 02:31 PM
--- NOTE | 2025-06-11 10:56 | PC.NURSE ---
equipment operator/laborer took patient from CSU to label cutter for angiogram at 1055.
--- NOTE | 2025-06-11 12:01 | PC.NURSE ---
Addendum entered by Chantale Hayes RN 06/11/25 12:03: Per Dr Abbott told nursing staff to hold NS and heparin drip. 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
--- NOTE | 2025-06-11 12:41 | P.TS_ITS ---
Transfer Summary Providers Date of Admission: 06/10/25 12:01 Date of Discharge/Transfer: 06/11/25 Attending Provider at Admission: Humble Horton Attending Provider at Transfer: Humble Horton Primary Care Provider: Facundo Gray Transfer Plans: Anticipated date of transfer: 06/11/25 . Diagnoses at Discharge Discharge Diagnosis 1. Recurrent syncope: 2. Ventricular arrhythmia: 3. NSTEMI (non-ST elevated myocardial infarction): 4. New onset atrial fibrillation: 5. Bradycardia: 6. Aneurysm of ascending aorta without rupture: 7. Stage 3a chronic kidney disease: Reason for Visit Reason for Visit syncope Brief History: sarah Olivas is a 74 year old male PMHx of HTN, CVA, diabetes, CKD Patient presented to the ED on 06/10/2025 via ambulance after experiencing 2 syncopal episodes prior to arrival. He reports a prodrome of sudden weakness, diaphoresis, and nausea before each event, followed by collapse and loss of consciousness. Notes injury to frontal aspect of head. No loss of bowel or bladder function. Denies chest pain and palpitations. Over the past week has been experiencing exertional dyspnea. No recent illness. No similar events in the past. Hospital Course Hospital Course Troponin EKG series with positive delta on 6-hour troponin. On aspirin, Plavix, heparin drip. Atorvastatin. Bradycardia in the 50s, not on beta-jermaine. Monitor on telemetry due to ventricular tachycardia episodes on the monitor. Incidentally found to have new onset atrial fibrillation. Echocardiogram with borderline low ejection fraction 52%, grade 1 diastolic function, trace MVR, trace TVR, trace TVR. Was assessed by cardiology, underwent coronary angiography with finding of triple-vessel coronary disease with recommendation for CABG arrangements are being made for transfer for further assessment and management at [facility] upon discussion of cardiology with cardiac team there. CKD has been stable. Creatinine 1.6. Incidentally noted ascending aortic aneurysm 4.1 cm in diameter. No evidence of dissection. Physical Exam Narrative: Accompanied by family. Const: COMMON NORMALS: patient oriented x3 and alert GENERAL APPEARANCE: cooperative ORIENTATION/CONSCIOUSNESS: Yes awake HENMT: COMMON NORMALS: oropharynx normal Neck/C-Spine: COMMON NORMALS: no JVD Resp: COMMON NORMALS: normal respiratory effort and clear to auscultation bilaterally AUSCULTATION: clear to auscultation bilaterally Cardio: COMMON NORMALS: no JVD, regular rhythm, S1 normal heart sound present, S2 normal heart sound present and No murmurs present (Cardio) RHYTHM: regular rhythm HEART SOUNDS: S1 normal heart sound present and S2 normal heart sound present GI: COMMON NORMALS: Normal to inspection, nondistended, normoactive bowel sounds present, Soft to palpation and non-tender PALPATION: Yes Soft to p alpation Extremity: COMMON NORMALS: no joint enlargement and no pedal edema Neuro: COMMON NORMALS: patient oriented x3 and moves all extremities SENSORIUM/ORIENTATION: Yes alert Skin: COMMON NORMALS: no rashes or lesions noted GENERAL SKIN EXAM: no rashes or lesions noted TS Data Studies Completed and Pending Pending at discharge Category Date Time 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 echo complete* [id number] Routine Ultrasound 06/10/25 13:10 Completed Laboratory Last Values WBC 7.21 10^3/uL (3.29-11.43) 06/11/25 05:31 RBC 3.87 10^6/uL (3.85-5.65) 06/11/25 05:31 Hgb 11.30 g/dL (11.27-16.99) 06/11/25 05:31 Hct 35.3 % (37-53) L 06/11/25 05:31 MCV 91.2 fl (82-101) 06/11/25 05:31 MCH 29.2 pg (27-33) 06/11/25 05:31 MCHC 32.0 g/dL (30-55) 06/11/25 05:31 RDW 13.1 % (12.1-15.1) 06/11/25 05:31 Plt Count 288 10^3/cmm (157-399) 06/11/25 05:31 MPV 10.7 fL (7.4-10.4) H 06/11/25 05:31 Neut % (Auto) 70.6 % 06/11/25 05:31 Lymph % (Auto) 15.7 % 06/11/25 05:31 [place] % (Auto) 9.3 % 06/11/25 05:31 Eos % (Auto) 2.9 % 06/11/25 05:31 Baso % (Auto) 0.8 % 06/11/25 05:31 Neut # (Auto) 5.09 10^3/uL (1.8-7.7) 06/11/25 05:31 Lymph # (Auto) 1.1 10^3/uL (0.8-4.8) 06/11/25 05:31 [place] # (Auto) 0.7 10^3/uL (0.2-0.9) 06/11/25 05:31 Eos # (Auto) 0.2 10^3/uL (0.0-0.8) 06/11/25 05:31 Baso # (Auto) 0.1 10^3/uL (0.0-0.1) 06/11/25 05:31 Nucleated RBC % (auto) 0 % 06/11/25 05:31 Nucleated RBCs # 0.0 /100WBC 06/11/25 05:31 APTT 64.0 SECONDS (23.9-36.7) H 06/11/25 05:31 D-Dimer 0.84 ug/mLFEU (0-0.59) H 06/10/25 10:19 Sodium 137 mmol/L (136-145) 06/11/25 05:31 Potassium 4.0 mmol/L (3.5-5.1) 06/11/25 05:31 Chloride 106 mmol/L (98-107) 06/11/25 05:31 Carbon Dioxide 22 mmol/L (22-29) 06/11/25 05:31 Anion Gap 13.0 (5-19) 06/11/25 05:31 BUN 26 mg/dL (8-23) H 06/11/25 05:31 Creatinine 1.6 mg/dL (0.7-1.2) H 06/11/25 05:31 GFR Calculation Not Reportable 06/11/25 05:31 Glucose 134 mg/dL (65-115) H 06/11/25 05:31 POC Glucose 156 mg/dL (70-110) H 06/11/25 12:11 Calculated Osmolality 291 mOsm/kg (285-295) 06/11/25 05:31 Calcium 8.4 mg/dL (8.5-10.5) L 06/11/25 05:31 Magnesium 2.1 mg/dL (1.7-2.3) 06/11/25 05:31 Total Bilirubin 0.4 mg/dL (0.15-1.2) 06/11/25 05:31 AST 14 U/L (0-40) 06/11/25 05:31 ALT 9 U/L (0-41) 06/11/25 05:31 Alkaline Phosphatase 92 U/L (40-130) 06/11/25 05:31 Troponin T Baseline 25 ng/L (0-15) H 06/10/25 10:19 Troponin T 120 Minute 30.02 ng/L (0-15) H 06/10/25 12:11 Delta Troponin T 5.02 ABS# (0-10) 06/10/25 12:11 Troponin T Hi Sens 6Hr 56.00 ng/L (0-15) H 06/10/25 15:05 Troponin T Hi Sens 6Hr Delta 31.00 ng/L (0-12) H* 06/10/25 15:05 NT-Pro-B Natriuret Pep 619 pg/mL (0-125) H 06/10/25 10:19 Total Protein 6.0 g/dL (6.6-8.7) L 06/11/25 05:31 Albumin 3.5 g/dL (3.5-5.2) 06/11/25 05:31 Globulin 2.5 g/dL (1.3-4.6) 06/11/25 05:31 TSH 2.40 uIU/mL (0.27-4.20) 06/10/25 10:19 Urine Color Yellow (Yellow) 06/10/25 11:08 Urine Appearance Clear (CLEAR) 06/10/25 11:08 Urine pH 6.5 (5-7) 06/10/25 11:08 Ur Specific [place] 1.030 (1.005-1.030) 06/10/25 11:08 Urine Protein 2+ (Negative) A 06/10/25 11:08 Urine Glucose (UA) Trace (Normal) H 06/10/25 11:08 Urine Ketones Trace (Negative) 06/10/25 11:08 Urine Blood Negative (Negative) 06/10/25 11:08 Urine Nitrate Negative (Negative) 06/10/25 11:08 Urine Bilirubin Negative (Negative) 06/10/25 11:08 Urine Urobilinogen 1.0 mg/dL (Negative) 06/10/25 11:08 Ur Leukocyte Esterase Negative (Negative) 06/10/25 11:08 Urine RBC 0-2 /hpf (0-2) 06/10/25 11:08 Urine WBC 0-5 /hpf (0-5) 06/10/25 11:08 Ur Squamous Epith Cells 0-5 /hpf (0-5) 06/10/25 11:08 Amorphous Sediment Not Reportable 06/10/25 11:08 Urine Bacteria None seen /hpf (NONE) 06/10/25 11:08 Hyaline Casts 0.40 /lpf 06/10/25 11:08 Radiology Impressions Chest X-Ray 06/10/25 09:40 IMPRESSION: No acute cardiopulmonary process. Head CT 06/10/25 09:40 IMPRESSION: No large territorial infarct or intracranial bleed. ADDENDUM: 06/11/25 0912 Dose length product measures 1125.69 mGy-cm. Head/Neck CTA 06/10/25 09:56 IMPRESSION: 1. No large vessel occlusion. 2. No large territorial infarct or intracranial bleed. IMPRESSION: Moderate stenosis of the right proximal ICA. REFERENCES: NASCET CRITERIA. The degree of stenosis in the cervical segment of the internal carotid artery is based on NASCET criteria. Normal is no stenosis. Mild is less than 50% stenosis. Moderate is 50-69% stenosis. Severe is 70% to 99% stenosis. Total occlusion is no detectable patent lumen. Chest CTA 06/10/25 10:07 IMPRESSION: 1. Bibasilar airspace disease worse on the left than on the right. Findings are likely related to atelectasis. 2. Aneurysmal dilatation involving the ascending aorta which measures 4.1 cm in maximal dimension. 3. Nonspecific small and slightly enlarged mediastinal lymph nodes. Recent Clincial Data Last Vital Signs Temp 98.2 F 06/11/25 07:56 Pulse 51 L 06/11/25 12:00 Resp 13 06/11/25 12:00 BP 165/86 06/11/25 12:00 Pulse Ox 91 06/11/25 12:00 O2 Del Method Room Air 06/11/25 12:00 Vital Signs Temp Pulse Resp BP Pulse Ox O2 Del Method 06/11/25 12:00 51 L 13 165/86 91 Room Air 06/11/25 07:56 98.2 F 64 20 H 162/83 94 Room Air 06/11/25 06:00 60 06/11/25 05:30 62 152/78 06/11/25 03:43 53 L 15 152/78 94 Room Air Intake & Output/Weight 06/09/25 06/10/25 06/11/25 06/12/25 06:59 06:59 06:59 06:59 Intake Total 1627.683 / 0806.953 6017.533 / 1415.533 Balance 1627.683 / 6055.193 1132.533 / 1415.533 Weight 79.333 kg Vitals Last Vital Signs Temp 98.2 F 06/11/25 07:56 Pulse 51 L 06/11/25 12:00 Resp 13 06/11/25 12:00 BP 165/86 06/11/25 12:00 Pulse Ox 91 06/11/25 12:00 O2 Del Method Room Air 06/11/25 12:00 TS Medications Medications Acetaminophen (Acetaminophen 500 Mg Tablet) 500 mg PO Q6H PRN PRN Reason: Mild/Mod Pain Or Temp >/= 101 Aspirin (Aspirin 325 Mg Tablet) 81 mg PO DAILY FLORENTIN Last Admin: 06/11/25 05:18 Dose: 81 mg Atorvastatin Calcium (Atorvastatin 40 Mg Tablet) 80 mg PO BEDTIME FLORENTIN Last Admin: 06/10/25 20:52 Dose: 80 mg Clopidogrel Bisulfate (Clopidogrel 75 Mg Tablet) 75 mg PO DAILY FLORENTIN Last Admin: 06/11/25 05:18 Dose: 75 mg Heparin Sodium (Porcine) (Heparin 5,000 Unit/Ml Inj 1 Ml) 0 unit IVP PRN PRN; Protocol PRN Reason: Heparin Weight Based Protocol -Subsequent Bolus Sodium Chloride (Sodium Chloride 0.9%) 1,000 mls @ 75 mls/hr IV .[id number] FLORENTIN Last Infusion: 06/11/25 12:05 Dose: 0 mls/hr Heparin Sodium/Sodium Chloride (Heparin Drip) 25,000 unit in 500 mls @ 0 mls/hr IV CONT FLORENTIN; Protocol Last Titration: 06/11/25 12:18 Dose: 11.9 unit/kg/hr, 19 mls/hr Insulin Human Lispro (Insulin Lispro 100 Unit/1 Ml) 0 unit SUBCUT WM&BEDTIME FLORENTIN; Protocol Last Admin: 06/11/25 08:16 Dose: Not Given Nitroglycerin (Nitroglycerin 1 Gm/Inch Oint Pkt) 1 inch TOPICAL Q6H FLORENTIN Last Admin: 06/11/25 10:54 Dose: Not Given Senna/Docusate Sodium (Sennosides-Docusate Tablet) 1 tab PO BID PRN PRN Reason: CONSTIPATION Discontinued Medications Acetaminophen (Acetaminophen 325 Mg Tablet) 500 mg PO Q6H PRN PRN Reason: Mild/Mod Pain Or Temp >/= 101 Clopidogrel Bisulfate (Clopidogrel 300 Mg Tablet) 300 mg PO ONCE ONE Stop: 06/10/25 16:30 Last Admin: 06/10/25 17:32 Dose: 300 mg Diltiazem HCl (Diltiazem 5 Mg/Ml Sdv 5 Ml) 10 mg IVP ONCE ONE Stop: 06/10/25 11:11 Last Admin: 06/10/25 12:37 Dose: Not Given Fentanyl (Fentanyl 50 Mcg/Ml Inj 2ml) Confirm Administered Dose 100 mcg .ROUTE .STK-MED ONE Stop: 06/11/25 10:31 Heparin Sodium (Porcine) (Heparin 5,000 Unit/Ml Inj 1 Ml) 5,000 unit SUBCUT Q12H FLORENTIN Last Admin: 06/10/25 14:15 Dose: 5,000 unit Heparin Sodium (Porcine) (Heparin 5,000 Unit/Ml Inj 1 Ml) 0 unit IVP ONCE ONE; Protocol Stop: 06/10/25 16:59 Last Admin: 06/10/25 17:46 Dose: Not Given Heparin Sodium (Porcine) (Heparin 5,000 Unit/Ml Inj 1 Ml) Confirm Administered Dose 10,000 unit .ROUTE .STK-MED ONE Stop: 06/11/25 10:31 Sodium Chloride (Sodium Chloride 0.9%) 500 mls @ 500 mls/hr IV ONCE ONE Stop: 06/10/25 11:07 Last Infusion: 06/10/25 12:11 Dose: Infused Magnesium Sulfate (Magnesium Sulfate Premix) 2 gm in 50 mls @ 50 mls/hr IV ONCE ONE Stop: 06/10/25 21:30 Last Infusion: 06/10/25 22:06 Dose: Infused Lidocaine HCl (Xylocaine) Confirm Administered Dose 20 mls @ as directed .ROUTE .STK-MED ONE Stop: 06/11/25 10:31 Iohexol (Iohexol 350 Mg/Ml 500 Ml Btl (Per Ml)) 0 ml IV ONCE ONE Stop: 06/10/25 10:05 Last Admin: 06/10/25 10:04 Dose: 100 ml Iohexol (Iohexol 350 Mg/Ml 500 Ml Btl (Per Ml)) 0 ml IV ONCE ONE Stop: 06/10/25 10:12 Last Admin: 06/10/25 10:11 Dose: 83 ml Midazolam HCl (Midazolam 1 Mg/Ml Inj 2 Ml) Confirm Administered Dose 2 mg .ROUTE .STK-MED ONE Stop: 06/11/25 10:31 Nitroglycerin (Nitroglycerin 5 Mg/Ml Sdv 10 Ml) Confirm Administered Dose 50 mg .ROUTE .STK-MED ONE Stop: 06/11/25 10:31 Allergies No Known Allergies Allergy (Verified 05/15/25 10:07) Home Medications amlodipine 10 mg tablet 10 mg PO DAILY 11/01/24 [History Confirmed 06/10/25] aspirin 81 mg tablet,delayed release (Adult Aspirin Regimen) 81 mg PO DAILY 11/01/24 [History Confirmed 06/10/25] duloxetine 20 mg capsule,delayed release 20 mg PO ONCE 11/01/24 [History Confirmed 06/10/25] hydralazine 100 mg tablet 100 mg PO TID #270 tabs 05/15/25 [Rx Confirmed 06/10/25] lisinopril 40 mg tablet 40 mg PO DAILY #90 tabs 05/15/25 [Rx Confirmed 06/10/25] baclofen 5 mg tablet 5 mg PO TID 11/23/25 [History Confirmed 06/10/25] glipizide 5 mg tablet See Rx Instructions .Route .COMPLEX 06/10/25 [History Confirmed 06/10/25] metformin 1,000 mg tablet 1,000 mg PO BID 06/10/25 [History Confirmed 06/10/25] nitroglycerin 0.4 mg sublingual tablet See Rx Instructions .Route .COMPLEX 06/10/25 [History Confirmed 06/10/25] Discharge Plan Discharge Patient Disposition: Xfer Short-Term Hosp Condition: Stable Prescriptions: No Action lisinopril 40 mg tablet 40 mg PO DAILY Qty: 90 3RF hydralazine 100 mg tablet 100 mg PO TID Qty: 270 3RF duloxetine 20 mg capsule,delayed release(DR/EC) 20 mg PO ONCE amlodipine 10 mg tablet 10 mg PO DAILY aspirin [Adult Aspirin Regimen] 81 mg tablet,delayed release (DR/EC) 81 mg PO DAILY metformin 1,000 mg tablet 1,000 mg PO BID nitroglycerin 0.4 mg tablet, sublingual See Rx Instructions .ROUTE .COMPLEX Rx Instructions: PLACE 1 TABLET (0.4MG) UNDER THE TONGUE EVERY 5 MINUTES NEEDED FOR CHEST PAIN glipizide 5 mg tablet See Rx Instructions .ROUTE .COMPLEX Rx Instructions: TAKE 2 TABLETS BY MOUTH WITH BREAKFAST AND 1 TABLET WITH DINNER baclofen 5 mg tablet 5 mg PO TID Referrals: Facundo Gray [Primary Care Provider, [facility]] - 4-7 days Patient Instructions: Opioid Safety, Post Angiogram Home Care Instructions, Patient Portal & [place] Instructions Transfer Attestations Time Spent in Transfer Care: greater than 30 min Quality Metrics Clinical Quality Measures [ No reported AMI, CVA or VTE this stay] Coding Level of Care Code 31904 Total time (in minutes) for Discharge: 45 Diagnoses Recurrent syncope R55 Ventricular arrhythmia I49.9 NSTEMI (non-ST elevated myocardial infarction) I21.4 New onset atrial fibrillation I48.91 Bradycardia R00.1 Aneurysm of ascending aorta without rupture I71.21 Presence of rupture: without rupture Stage 3a chronic kidney disease N18.31 Chronic kidney disease stage: stage 3 (moderate) Chronic kidney disease stage 3 subtype: stage 3a (GFR 45-59)
--- NOTE | 2025-06-11 16:00 | PC.NURSE ---
Provider is updated about Cornelio Olivas, his last BP's have been getting high. 170/109, 167/90, 173/89, 172/96 He is the one that we are sending to [facility] for CABG but EMS is about 3 hours out. Do you want me to give him something? Provider entered order for medication.
--- NOTE | 2025-06-11 16:02 | PC.NURSE ---
Report is called to Machelle Sosa RN, at [facility] in [place], [place], at 1510. Patient is going to [facility] to room 522 bed 2, . Dr. Barcenas. Vinnie Dobbins was called for transport at 1515.
[2025-06-11 16:04] LABS: Partial Thromboplastin Time 40.3 SECONDS (23.9-36.7)
[2025-06-11] MEDS: heparin drip 25,000 UNIT/500 ML PREMIX 22 UNIT IV (18:45)
--- NOTE | 2025-06-11 19:48 | PC.NURSE ---
pt left via EMS at 1939 with all belonging left with family, packet and pathology laboratory director disc sent with EMS personal.
== END 2025-06-11 19:39 | disposition short-term general hospital (02) ==
LOC: ER 11:40 → CSU 12:06
PROVIDERS: Internal Medicine Cardiovascular Disease; Nurse Practitioner Gerontology; Admitting Provider Internal Medicine; Emergency Provider Physician Assistant; PCP Physician Assistant Medical; Visit Provider Internal Medicine
DX: R55 Syncope and collapse (principal); I49.9 Cardiac arrhythmia, unspecified; I21.4 Non-ST elevation (NSTEMI) myocardial infarction; R00.1 Bradycardia, unspecified; I48.91 Unspecified atrial fibrillation; I71.21 Aneurysm of the ascending aorta, without rupture; I25.10 Atherosclerotic heart disease of native coronary artery without angina pectoris; Z86.73 Personal history of transient ischemic attack (TIA), and cerebral infarction without residual deficits; Z79.82 Long term (current) use of aspirin; Z79.84 Long term (current) use of oral hypoglycemic drugs; E11.22 Type 2 diabetes mellitus with diabetic chronic kidney disease; I12.9 Hypertensive chronic kidney disease with stage 1 through stage 4 chronic kidney disease, or unspecified chronic kidney disease; N18.31 Chronic kidney disease, stage 3a; Z79.02 Long term (current) use of antithrombotics/antiplatelets; Z79.4 Long term (current) use of insulin
CPT/HCPCS: 36415; 36416; 70450; 70496; 70498; 71045; 71275; 80053; 81001; 82962; 83735; 83880; 84443; 84484; 85025; 85378; 85730; 93005; 93306; 93454; 96365; 96366; 96367; 96372; 96375; 99152; 99153; 99285; C1769; C1887; C1894; G0378; J1644; J1815; J2250; J3010; J3475; J3490; J7030; J7040; J9999; Q9967

== ENCOUNTER → 2025-06-27 09:24 | Outpatient (BNVA) | payer MEDICARE, OTHER, SELFPAY | PROVIDERS: PCP Family Medicine; Visit Provider Internal Medicine Cardiovascular Disease | DX: I49.5 Sick sinus syndrome (principal); I25.10 Atherosclerotic heart disease of native coronary artery without angina pectoris; I48.20 Chronic atrial fibrillation, unspecified; Z79.82 Long term (current) use of aspirin; I10 Essential (primary) hypertension; I49.9 Cardiac arrhythmia, unspecified; Z86.73 Personal history of transient ischemic attack (TIA), and cerebral infarction without residual deficits; I48.91 Unspecified atrial fibrillation | CPT/HCPCS: 93005; 99214 ==

== ENCOUNTER 2025-06-27 09:51 | Observation (INO) | payer MEDICARE, OTHER, SELFPAY ==
[2025-06-27] VITALS (9 sets, daily range): BP systolic 124–145; BP diastolic 72–89; PULSE 50–64; RESP 16–18; TEMP 36.5–36.6; O2SAT 92–99; BMI 21.8
--- NOTE | 2025-06-27 10:13 | XR_ITS ---
WS: [id number] XR chest 1V portable [id number] REASON FOR EXAM: dyspnea/cough FINDINGS: Other than resolution of the small area of atelectasis overlying the left costophrenic angle the current examination is unchanged compared to 06/10/2025. Mild tortuosity and ectasia of the thoracic aorta with normal heart size. Calcified granulomatous disease bilaterally. No acute pulmonary parenchymal or pleural abnormality. XR/XR chest 1V portable [id number] IMPRESSION: Stable chest without acute abnormality.
--- NOTE | 2025-06-27 10:13 | ECG_ITS ---
[facility] Test Date: 2025-06-27 Pat Name: Cornelio Olivas Department: Room: 103 Gender: Male Telephone Order Dispatcher: : [id number] Requested By: Mic Medeiros Order Number: [id number] Miguel MD: Jose Huber M.D. Measurements Intervals [place] Rate: 60 P: 26 VA: 139 QRS: -15 QRSD: 95 T: 60 QT: 436 QTc: 436 Interpretive Statements SINUS RHYTHM NONSPECIFIC T-WAVE ABNORMALITY Compared to ECG 06/27/2025 09:31:08 T-wave abnormality now present Atrial flutter no longer present Ventricular premature complex(es) no longer present Aberrant conduction of supraventricular beat(s) no longer present Myocardial infarct finding no longer present Electronically Signed On 06-28-2025 17:58:05 CLINICAL ACCOUNT LIAISON by Jose Huber M.D. [email or web address]
[2025-06-27 10:22] LABS: Hematocrit 42.6 % (37-53); Hemoglobin 13.70 g/dL (11.27-16.99); Mean Corpuscular HGB Conc 32.2 g/dL (30-55); Mean Corpuscular Hemoglobin 29.1 pg (27-33); Mean Corpuscular Volume 90.4 fl (82-101); Nucleated Red Blood Cells % 0 %; Platelet Count 309 10^3/cmm (157-399); Red Blood Count 4.71 10^6/uL (3.85-5.65); White Blood Count 6.40 10^3/uL (3.29-11.43)
--- NOTE | 2025-06-27 10:50 | P.HP_ITS ---
Providers/Chief Complaint 2 Admitting Physician: Dr. Michel Primary Care Provider: Regan Sheehan Chief Complaint: Fast HR SOB History of Present Illness Cornelio Olivas is a 74 year old male with PMHx of HTN, multi-vessel CAD, pAF, AAA (4.1 cm), HLD, TIA/CVA, NIDDM 2T, CKD 3A, degenerative joint disease, and depression. Lifelong non-smoker. Patient presented to [facility] ED per recommendation from outpatient cardiology clinic. Patient was seen in the outpatient cardiology clinic in follow-up for palpitations and irregular heart rate. Per son, visit was scheduled day prior. Patient was recently hospitalized 06/10/25 - 06/11/25 for recurrent syncope. During his hospital evaluation he was found to have episodes of non-sustained tachycardia and new onset atrial fibrillation. Echocardiogram (06/10/25) revealed LVEF of 52%, grade 1 diastolic function, trace MVR and trace TVR, trace TVR. LHC (06/11/25) revealed significant multi- vessel disease (severe stenosis in the proximal and mid LAD, severe mid-distal circumflex stenosis, moderate RCA stenosis with aneurysmal changes, and PDA involvement. No disease noted in the left main, left anterior descending, right, or circumflex coronary arteries). In lieu of findings on coronary angiogram, cardiology recommended evaluation for CABG. Subsequently patient was transferred to [facility] in [place] for further evaluation. At [facility] evaluated by CTS Dr. Barcenas and deemed not to be a candidate for CABG. Discharged from [facility] on 06/13/25. Per patient's son, during admission amlodipine was discontinued and he was started on isosorbide mononitrate. No other medication changes have been made. Patient reports to have felt well since discharge until yesterday. He denies experiencing chest pain, palpitations, dizziness, syncopal events and exertional dyspnea. Notes to have had improved fatigue. Yesterday experienced a brief episode of dizziness (lasted 2-3 seconds) while in the shower. Shortly after, developed palpitations with heart rate in the 120s. Episode lasted 3-4 hours. Does note heart rate coming down into the 60s later in the day. Reports feeling extremely fatigued all day. Denies recurrence of syncope since hospitalization in May. Reports feeling well on awakening today. Notes developing shortness of breath and palpitations while walking through the parking lot for his outpatient cardiology clinic appointment. EKG in the outpatient clinic revealed AFIB RVR (v-rate 121) with lateral ST depression. At present time patient is not on any rate control medications or chronic anticoagulation. He does take 81 mg aspirin. Not on a statin. ED Course and Work-Up Presenting VS 06/27/25 0846: T 97.3F BP 168/80 HR 150 RR 18 SpO2 98% on room air 06/27/25 1015: T 97.7F BP 124/89 HR 60 RR 17 SpO2 93% on room air EKG, 06/27/25 1126, SB (v-rate 56) Labs, 06/27/25 1000 Hemogram WBC 6.4 RBC 4.71 PLT 309 HGB 13.7 HCT 42.6 Chemistry Na 137 K 4.4 Mg 1.8 Cl 101 Ca 9.1 Glu 252 CO2 23 AG 17.4 Renal BUN 34 Cr 1.9 eGFR Liver AST 8 ALT < 5 ALP 104 T.Bili 0.4 Alb 4.4 Cardiac Trop 31 -> 26.92 NT-proBNP 961 Lipid Chol 135 HDL 28 LDL 79 Trig 138 CXR without acute cardiopulmonary abnormality. ED Treatment... 1015 Started on Heparin gtt Review of Systems 2 General: Reports: 10 or more systems reviewed and unremarkable except in HPI and below Medications/Allergies Home Medications ?Medication ?Instructions ?Recorded ?Confirmed ?Last Taken ?Type amlodipine 10 mg tablet 10 mg PO QPM 11/01/2406/26/25 History aspirin 81 mg tablet,delayed 81 mg PO DAILY 11/01/24 1 08/28/24 06/27/25 History release (Adult Aspirin Regimen) duloxetine 20 mg capsule,delayed 20 mg PO QAM 11/01/24 06/27/25 06/27/25 History release hydralazine 100 mg tablet 100 mg PO TID #270 tabs 04/1906/27/25 06/27/25 Rx baclofen 5 mg tablet 5 mg PO TID PRN Pain 5 06/27/25 Unknown History glipizide 5 mg tablet See Rx Instructions .Route . COMPLEX 06/10/25 06/27/25 06/27/25 History metformin 1,000 mg tablet 500 mg PO BID 06/10/2506/2706/27/25 History nitroglycerin 0.4 mg sublingual See Rx Instructions .R oute .COMPLEX 06/10/25 06/27/25 Unknown History tablet isosorbide mononitrate 30 mg 30 mg PO QAM 06/27/2505/1206/27/25 History tablet,extended release 24 hr lisinopril 40 mg tablet 40 mg PO DAILY 06/27/2506/18 Unknown History Allergies Allergy/AdvReac Type Severity Reaction Status Date / Time No Known Allergies Allergy Verified 06/27/25 08:42 PFSH Acute 2 PFSH: Medical History (Updated 06/27/25 @ 19:58 by Pennie Lowery NP) Diabetes mellitus Hypertension Social History Smoking and tobacco/nicotine status: never used tobacco/nicotine Vitals/I&O/Wt Last Vital Signs Temp 97.7 F 06/27/25 10:15 Pulse 61 06/27/25 10:28 Resp 17 06/27/25 10:15 BP 134/82 06/27/25 10:28 Pulse Ox 93 06/27/25 10:15 O2 Del Method Room Air 06/27/25 10:15 Weight last 48 hrs Weight 77.111 kg Physical Exam 2 Narrative: Constitutional * NAD Neurologic * Awake and alert. Oriented x3. * No facial asymmetry, unilateral weakness or speech deficits. Head * Normocephalic. Atraumatic. Eyes * PERRLA. EOMI. Sclera anicteric. Ears, Nose, Throat * Normal external ears. Hearing intact to normal voice. * Normal external nose. No epistaxis. * Dry MM Respiratory * Diminished * No dyspnea at rest or with conversation. No accessory muscle use. * On room air. Heart / Cardiovascular * Regular * No murmur Extremities * No edema bilaterally * Distal pulses 2+ and symmetric. No cyanosis. Abdomen / Gastrointestinal * Soft. Non-tender. Non-distended. + BS. Genitourinary * No suprapubic tenderness * No pretty catheter Musculoskeletal * No gross deformities, asymmetry, swelling or muscle atrophy on observation * No focal TTP over major joint or long bones * Full ROM in all major joints without pain * Strength 5/5 throughout in bilateral upper and lower extremities Skin / Integumentary * Mild age related changes present. * No rashes, lesions, petechiae / ecchymosis, ulcerations or open wounds. Data 06/27/25 10:00 06/27/25 10:00 Other Labs: I have personally reviewed below listed labs that were done in ED on presentation. Labs, 06/27/25 1000 Hemogram WBC 6.4 RBC 4.71 PLT 309 HGB 13.7 HCT 42.6 Chemistry Na 137 K 4.4 Mg 1.8 Cl 101 Ca 9.1 Glu 252 CO2 23 AG 17.4 Renal BUN 34 Cr 1.9 eGFR 34.8 (calculated per MDRD equation) Liver AST 8 ALT < 5 ALP 104 T.Bili 0.4 Alb 4.4 Cardiac Trop 31 -> 26.92 NT-proBNP 961 Lipid Chol 135 HDL 28 LDL 79 Trig 138 CXR: Radiologist's impression: Procedure(s): XR chest 1V portable Date of Service: 06/27/25 REASON FOR EXAM: dyspnea/cough Other than resolution of the small area of atelectasis overlying the left costophrenic angle the current examination is unchanged compared to 06/10/2025. Mild tortuosity and ectasia of the thoracic aorta with normal heart size. Calcified granulomatous disease bilaterally. No acute pulmonary parenchymal or pleural abnormality. Impression: Stable chest without acute abnormality. A&P Assessment and plan 1. Paroxysmal atrial fibrillation with rapid ventricular response: 2. Tachy-khris syndrome: 3. Multi-vessel coronary artery stenosis: 4. Acute kidney injury superimposed on CKD: Plan: # AFIB RVR # Tachy-Khris syndrome AFIB newly diagnosed (05/2025). [id number] Score 5 (age, HTN, prior CVA, DM). 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 Self-converted without intervention. Currently in sinus bradycardia. - Cardiology consulted - Tele monitoring - At this point bradycardia limits use of rate controlling medications at this time. # Multi-Vessel Coronary LHC (06/11/25) revealed significant multi-vessel disease (severe stenosis in the proximal and mid LAD, severe mid-distal circumflex stenosis, moderate RCA stenosis with aneurysmal changes, and PDA involvement. Evaluated at [facility], not deemed to be candidate for CABG. - Cardiology started on heparin gtt - Continue ASA 81 mg QD - Started on statin, atorvastatin 40 mg daily - Ultimately needs re-vascularization # LIBRADO on CKD 3A Baseline line Cr unknown, but known to have CKD 3 Cr 1.5 (06/10) Cr 1.8 today - Gentle hydration, NS at 75 x10 hours - BMP in am # NIDDM 2T Diabetic control unknown. 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 Since cessation of the statin there has not been much change or improvement. Discussed need for statin therapy and control of risk factors. Patient is willing to trial statin once again. - Started on atorvastatin 40 mg daily - Add CK level VTE PPx: SCDs, heparin gtt Patient's case and plan of care was discussed with cardiology COMMERCIAL ADMINISTRATOR, Vaishali Duong. 06/27/25 1830 follow-up on patient Discussed patient with cardiology, Dr. Ann who updated me on plan of care. Communicated discussion with CTS at [facility] who feel the patient may be candidate for CABG. See cardiology note. Decision is being made to transfer patient for further evaluation. I have spoke to the transfer team and arranged for transfer. At this time patient has been accepted, waiting on a bed. I have completed / signed required portions of the COBRA form. Patient's family updated and cardiology updated. PDMP PDMP Reviewed: Not Reviewed Attestations 2 Medical Necessity Statement*: Admitted under observation status. Given complexity of patient's presentation, co-morbid conditions, and required intensity of treatment, a hospitalization exceeding two midnights is anticipated. Coding Level of Care Code 45615 Diagnoses Paroxysmal atrial fibrillation with rapid ventricular response I48.0 Tachy-khris syndrome I49.5 Multi-vessel coronary artery stenosis I25.10 Acute kidney injury superimposed on CKD N17.9; N18.9
--- NOTE | 2025-06-27 10:51 | W.ED.ARRPALP ---
HPI - Arrhythmia/Palpitations General: Chief Complaint: Arrhythmia/Palpitations Stated Complaint: Fast HR SOB Time Seen by Provider: 06/27/25 10:11 History of Present Illness: 74-year-old male presents emergency room reporting syncopal episodes. He thought his heart rate was rapid at times. He has not had any chest pain. He was seen by cardiology today noted to be in A-fib with RVR. Patient had recently been admitted to the hospital here and then was transferred to [facility] after an angiogram showed multivessel coronary disease he was transferred there for consideration of bypass evidently they did not do it and he was discharged home he return to cardiology in A-fib with RVR when he arrived here he is in A-fib but spontaneously converted before we could administer any treatment. Dr. Nix had called over there were concerned about his A-fib with RVR and his underlying coronary artery superset not yet been treated he recommended starting amiodarone and heparin. Since patient spontaneously converted we did not start the heparin these pain-free at this time. Related Data Home Medications ?Medication ?Instructions ?Recorded ?Confirmed amlodipine 10 mg tablet 10 mg PO QPM 11/01/24 06/27/25 aspirin 81 mg tablet,delayed 81 mg PO DAILY 11/01/24 06/27/25 release (Adult Aspirin Regimen) duloxetine 20 mg capsule,delayed 20 mg PO QAM 11/01/24 06/27/25 release baclofen 5 mg tablet 5 mg PO TID PRN Pain 06/10/25 06/27/25 glipizide 5 mg tablet See Rx Instructions .Route .COMPLEX 06/10/25 06/27/25 metformin 1,000 mg tablet 500 mg PO BID 06/10/25 06/27/25 nitroglycerin 0.4 mg sublingual See Rx Instructions .Route .COMPLEX 06/10/25 06/27/25 tablet isosorbide mononitrate 30 mg 30 mg PO QAM 06/27/25 06/27/25 tablet,extended release 24 hr lisinopril 40 mg tablet 40 mg PO DAILY 06/27/25 06/27/25 Previous Rx's ?Medication ?Instructions ?Recorded hydralazine 100 mg tablet 100 mg PO TID #270 tabs 05/15/25 Allergies Allergy/AdvReac Type Severity Reaction Status Date / Time No Known Allergies Allergy Verified 06/27/25 08:42 Review of Systems Const: Denies: fever(s) or chills Card: Denies: chest pain Resp: Denies: dyspnea GI: Denies: abdominal pain : Denies: dysuria, urinary frequency or urinary urgency Musc: Denies: neck pain or back pain Skin/Breast: Denies: rash PFSH ED PFSH: Medical History Diabetes mellitus Hypertension Social History Smoking and tobacco/nicotine status: never used tobacco/nicotine Physical Exam Const: GENERAL APPEARANCE: cooperative ORIENTATION/CONSCIOUSNESS: Yes awake, Yes oriented to person, Yes oriented to place and Yes oriented to time HENMT: COMMON NORMALS: normocephalic, atraumatic and hearing grossly normal bilaterally HEAD & SCALP: normocephalic and atraumatic Resp: COMMON NORMALS: normal respiratory effort, No retractions, No use of accessory muscles and clear to auscultation bilaterally AUSCULTATION: clear to auscultation bilaterally Cardio: COMMON NORMALS: No murmurs present (Cardio) RATE: tachycardic RHYTHM: abnormal rhythm irregularly irregular GI: COMMON NORMALS: Soft to palpation and No hepatosplenomegaly present AUSCULTATION: Yes normoactive bowel sounds PALPATION: Yes Soft to palpation, No Tenderness to palpation present (GI), No Guarding due to palpation present (GI) and Yes No hepatosplenomegaly present Extremity: COMMON NORMALS: normal to inspection, capillary refill normal, no clubbing, cyanosis or edema, no calf tenderness and no pedal edema Neuro: SENSORIUM/ORIENTATION: Yes oriented to person, Yes oriented to place and Yes oriented to time Skin: COMMON NORMALS: no rashes or lesions noted GENERAL SKIN EXAM: no rashes or lesions noted Course Vital Signs: Vital signs: Vital Signs Temperature 97.9 F 06/27/25 19:07 Pulse Rate 64 06/27/25 19:07 Respiratory Rate 16 06/27/25 19:07 Blood Pressure 141/72 06/27/25 19:07 Pulse Oximetry 93 06/27/25 19:07 Oxygen Delivery Me thod Room Air 06/27/25 19:07 MDM - Arrhythmia/Palpitations Medical Decision Making Medical decision making Social determinants: Patient good historian has some limitations of physical activity due to angina I reviewed the patient's medical record. I reviewed the patient's current home meds. Alternate historians: Son who is a nurse presents with the patient. Differential diagnosis: NSTEMI, A-fib RVR, unstable angina Lab Review: Labs reviewed on the chart CBC is unremarkable hemoglobin at 13 7 white count normal creatinine slightly elevated at 1.9 baseline 1.5. Glucose 252. Initial troponin is 31 1 hour troponin 26.9 with a delta of -4. BNP 961. Imaging:Chest x-ray stable no acute infiltrates no cardiomegaly no effusions Assessment of risk Level of risk: High Hospitalization considerations: Hospitalization for A-fib with RVR unstable angina and known severe coronary artery disease Reexamination: Improved when patient first arrived was in A-fib RVR spontaneously converted has been in sinus bradycardia since Assessment and plan: Patient spontaneously converted with no intervention. He was started on heparin discussed earlier with cardiology. They recommend admission. We have already started heparin have held off on the amiodarone because his rate is well-controlled he is actually bradycardic down his amiodarone will he worsen his symptoms. Cardiology states they will come to see the patient and get the old records as to what occurred when he was transferred out as his previous hospitalization. Cardiology seen patient during ER visit and instead of admitting here has recommended now to be transferred to their handling transfer arrangements. Lab Data 06/27/25 10:00 06/27/25 10:00 Radiology Impressions Chest X-Ray 06/27/25 10:13 IMPRESSION: Stable chest without acute abnormality. Laboratory Results WBC 6.40 10^3/uL (3.29-11.43) 06/27/25 10:00 RBC 4.71 10^6/uL (3.85-5.65) 06/27/25 10:00 Hgb 13.70 g/dL (11.27-16.99) 06/27/25 10:00 Hct 42.6 % (37-53) 06/27/25 10:00 MCV 90.4 fl (82-101) 06/27/25 10:00 MCH 29.1 pg (27-33) 06/27/25 10:00 MCHC 32.2 g/dL (30-55) 06/27/25 10:00 RDW 12.7 % (12.1-15.1) 06/27/25 10:00 Plt Count 309 10^3/cmm (157-399) 06/27/25 10:00 MPV 10.6 fL (7.4-10.4) H 06/27/25 10:00 Neut % (Auto) 75.7 % 06/27/25 10:00 Lymph % (Auto) 10.8 % 06/27/25 10:00 [place] % (Auto) 8.4 % 06/27/25 10:00 Eos % (Auto) 3.9 % 06/27/25 10:00 Baso % (Auto) 0.6 % 06/27/25 10:00 Neut # (Auto) 4.84 10^3/uL (1.8-7.7) 06/27/25 10:00 Lymph # (Auto) 0.7 10^3/uL (0.8-4.8) L 06/27/25 10:00 [place] # (Auto) 0.5 10^3/uL (0.2-0.9) 06/27/25 10:00 Eos # (Auto) 0.3 10^3/uL (0.0-0.8) 06/27/25 10:00 Baso # (Auto) 0.0 10^3/uL (0.0-0.1) 06/27/25 10:00 Nucleated RBC % (auto) 0 % 06/27/25 10:00 Nucleated RBCs # 0.0 /100WBC 06/27/25 10:00 Sodium 137 mmol/L (136-145) 06/27/25 10:00 Potassium 4.4 mmol/L (3.5-5.1) 06/27/25 10:00 Chloride 101 mmol/L (98-107) 06/27/25 10:00 Carbon Dioxide 23 mmol/L (22-29) 06/27/25 10:00 Anion Gap 17.4 (5-19) 06/27/25 10:00 BUN 34 mg/dL (8-23) H 06/27/25 10:00 Creatinine 1.9 mg/dL (0.7-1.2) H 06/27/25 10:00 GFR Calculation Not Reportable 06/27/25 10:00 Glucose 252 mg/dL (65-115) H 06/27/25 10:00 Calculated Osmolality 300 mOsm/kg (285-295) H 06/27/25 10:00 Calcium 9.1 mg/dL (8.5-10.5) 06/27/25 10:00 Magnesium 1.8 mg/dL (1.7-2.3) 06/27/25 11:00 Total Bilirubin 0.4 mg/dL (0.15-1.2) 06/27/25 10:00 AST 8 U/L (0-40) 06/27/25 10:00 ALT < 5 U/L (0-41) 06/27/25 10:00 Alkaline Phosphatase 104 U/L (40-130) 06/27/25 10:00 Troponin T Baseline 31 ng/L (0-15) H 06/27/25 10:00 Troponin T 60 Minute 26.92 ng/L (0-15) H 06/27/25 11:00 Delta Troponin T -4.08 ABS# (0-10) L 06/27/25 11:00 NT-Pro-B Natriuret Pep 961 pg/mL (0-125) H 06/27/25 10:00 Total Protein 7.1 g/dL (6.6-8.7) 06/27/25 10:00 Albumin 4.4 g/dL (3.5-5.2) 06/27/25 10:00 Globulin 2.7 g/dL (1.3-4.6) 06/27/25 10:00 Triglycerides 138 mg/dL (0-150) 06/27/25 11:00 Cholesterol 135 mg/dL (0-200) 06/27/25 11:00 LDL Cholesterol, Calc 79 mg/dL (50-129) 06/27/25 11:00 HDL Cholesterol 28 mg/dL (60-100) L 06/27/25 11:00 LDL/HDL Ratio 2.82 RATIO (0.00-3.22) 06/27/25 11:00 Cholesterol/HDL Ratio 4.82 mg/dL (1.0-5.00) 06/27/25 11:00 All radiology interpretation(s) finalized by discharge EKG Data EKG 1: I personally reviewed and interpreted this EKG as follows: Interpretation: EKG 06/27/2025 9:31 AM atrial flutter rapid ventricular response rate of 121 at times as high as 150s. No acute ST changes noted QTc 498. Compared to EKG 06/10/2025 A-flutter with RVR has replaced sinus rhythm Other EKG comments: Chest X-Ray 06/27/25 10:13 IMPRESSION: Stable chest without acute abnormality. EKG 2: I personally reviewed and interpreted this EKG as follows: Interpretation: EKG 06/27/2025 1013 AM sinus bradycardia rate of 60 MS interval 139 QTc [address] changes noted. Compared EKG done earlier same day atrial flutter has not been replaced by sinus bradycardia. Other EKG comments: Chest X-Ray 06/27/25 10:13 IMPRESSION: Stable chest without acute abnormality. EKG 3: I personally reviewed and interpreted this EKG as follows: Interpretation: EKG 06/27/2025 1126 AM sinus bradycardia rate of 56 MS interval 144 QTc [address] changes noted. Compared EKG done earlier same day no change Other EKG comments: Chest X-Ray 06/27/25 10:13 IMPRESSION: Stable chest without acute abnormality. EKG 4: I personally reviewed and interpreted this EKG as follows: Interpretation: EKG 06/27/2025 1546 sinus bradycardia with PVCs rate of 59 MS interval 143 QTc 430 compared to EKG done earlier no significant change. No STEMI Other EKG comments: Chest X-Ray 06/27/25 10:13 IMPRESSION: Stable chest without acute abnormality. Discharge Plan Discharge Patient Disposition: Admitted As Inpatient Admit Provider: Ifeanyi Daniels Clinical Impression: Atrial fibrillation with RVR, Coronary artery disease Condition: Stable Coding Level of Care Code ED Director Learning And Development for [facility]
[2025-06-27] MEDS: heparin 5,000 unit/mL INJ 1 mL IVP (11:08)
[2025-06-27] MEDS: heparin drip 25,000 UNIT/500 ML PREMIX 18.51 UNIT IV (11:09)
[2025-06-27 11:19] LABS: Troponin(5th) Baseline 31 ng/L (0-15)
[2025-06-27 11:29] LABS: Alanine Aminotransferase < 5 U/L (0-41); Albumin Level 4.4 g/dL (3.5-5.2); Alkaline Phosphatase 104 U/L (40-130); Anion Gap 17.4 (5-19); Aspartate Amino Transferase 8 U/L (0-40); Blood Urea Nitrogen 34 mg/dL (8-23); Calcium 9.1 mg/dL (8.5-10.5); Carbon Dioxide 23 mmol/L (22-29); Chloride 101 mmol/L (98-107); Globulin 2.7 g/dL (1.3-4.6); Glucose 252 mg/dL (65-115); NT Pro B Type Natriuretic Pept 961 pg/mL (0-125); Osmolality Calculated 300 mOsm/kg (285-295); Potassium 4.4 mmol/L (3.5-5.1); Sodium 137 mmol/L (136-145); Total Protein 7.1 g/dL (6.6-8.7)
--- NOTE | 2025-06-27 11:31 | ECG_ITS ---
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 Measurements Intervals [place] Rate: 56 P: 22 [place]: 144 QRS: -25 QRSD: 98 T: 49 QT: 369 QTc: 357 Interpretive Statements SINUS BRADYCARDIA BORDERLINE LEFT AXIS DEVIATION [QRS AXIS < -20] NONSPECIFIC T-WAVE ABNORMALITY Compared to ECG 06/27/2025 09:31:08 T-wave abnormality now present Atrial flutter no longer present Ventricular premature complex(es) no longer present Aberrant conduction of supraventricular beat(s) no longer present Myocardial infarct finding no longer present Electronically Signed On 06-28-2025 17:50:26 GRADES 1 THROUGH 6 TEACHER by Jose Huber M.D. [email or web address]
[2025-06-27 12:04] LABS: Cholesterol 135 mg/dL (0-200); HDL Cholesterol 28 mg/dL (60-100); Magnesium 1.8 mg/dL (1.7-2.3); Triglycerides 138 mg/dL (0-150)
--- NOTE | 2025-06-27 16:03 | P.CONIM_ITS ---
<Statement entered by Gerardo Ann MD - 06/27/25 18:49> Patient was evaluated and cared for in conjunction with an advanced practice practitioner. I personally examined the patient and reviewed the chart and all pertinent data including imaging, telemetry, and laboratory results. I discussed the patient in detail with the advanced practice practitioner. Please see their note for complete consult note, testing results and agreed upon plan of care for the patient. We have shared information with an excellent CT surgeon at [facility] who reviewed the cath images. He feels they can consider patient for CABG. The patient is unstable in terms of unstable angina as well as arrhythmia including tachybradycardia syndrome, paroxysmal atrial fibrillation with rapid ventricular response with heart rates up to 150 with minimal walking and sinus bradycardia. The patient has spontaneously converted back to sinus bradycardia in the ER with heart rates in the 40s to 50s. I feel his bradycardia limits us starting amiodarone. His arrhythmia likely will improve once revascularized and perhaps the patient will not ultimately require a permanent pacemaker but this is to be determined. I have requested the patient be transferred to [facility] for unstable angina and tachybradycardia syndrome on IV heparin for CABG evaluation. I have discussed my recommendations with the hospitalist team, the patient and the patient's family including a son who is a nurse and they are all in agreement. The patient has voiced that he would like to live longer and agrees to bypass surgery if this is his best choice for long- term survival with reduced cardiac events. He states he has some mild imbalance from lower extremity polyneuropathy but is able to walk more than 200 feet without leg weakness. Providers/Reason For Consult 2 Consulting Physician/Specialty*: Dr. Ann Reason for Consult*: afib rvr, shortness of breath Requesting Physician: Dr. Connors Attending Physician: Pennie Lowery NP Primary Care Provider: Regan Sheehan History of Present Illness History of Present Illness This is a very pleasant 74-year-old gentleman with a history of essential hypertension, lacunar infarct, CAD with severe three-vessel disease, paroxysmal A-fib with RVR, CKD, ascending aortic aneurysm, tachybradycardia syndrome, recurrent syncope, who came in to see Dr. Ann in the clinic today. Patient was seen in the ER previously for a syncopal episode with heart rates in the 40s with EMS. Echo showed EF 50% with mild global hypokinesis. He had a left heart cath that showed multivessel CAD and was transferred to [facility] to Dr. Guan. Some workup was done there and patient was sent home with an outpatient appointment. Patient states he was told he was not a candidate for CABG. He presented to the office with increased shortness of breath and was found to be in A-fib RVR with a rate of [address] depression. He was not placed on anticoagulant previously for A-fib. Patient was sent to the ER for unstable A- fib RVR, multivessel CAD, and recurrent presyncope and dyspnea on exertion. Chest x-ray was obtained that showed no acute abnormality. Previous head and neck CT showed no carotid stenosis but old leunar infarct on the right. At the time of my exam. Patient spontaneously converted to sinus bradycardia. Therefore Amio bolus and drip was held at that time. Patient is being placed on a heparin drip. Review of Systems 2 Narrative: Consitutional: denies fever, chills, body aches Eyes: Denies changes in vision Card: Denies chest pain, palpitations, irregular heart rhythm, edema, Resp: Reports shortness of breath on exertion relieved with rest Musc: Reports lower extremity weakness that is chronic in nature. States that they tried stopping his statin therapy which was lovastatin that he had been on for many years but this did not improve. Skin: Denies rash Neuro: Denies nubmness in extremities, h/a, s/s of stroke Leobardo: Denies easy bruiding/bleeding Medications/Allergies Home Medications ?Medication ?Instructions ?Recorded ?Confirmed ?Last Taken ?Type amlodipine 10 mg tablet 10 mg PO QPM 11/01/2406/26/25 History aspirin 81 mg tablet,delayed 81 mg PO DAILY 11/01/24 1 08/28/24 06/27/25 History release (Adult Aspirin Regimen) duloxetine 20 mg capsule,delayed 20 mg PO QAM 11/01/24 06/27/25 06/27/25 History release hydralazine 100 mg tablet 100 mg PO TID #270 tabs 04/1906/27/25 06/27/25 Rx baclofen 5 mg tablet 5 mg PO TID PRN Pain 5 06/27/25 Unknown History glipizide 5 mg tablet See Rx Instructions .Route . COMPLEX 11/23/25 12/10/25 12/10/25 History metformin 1,000 mg tablet 500 mg PO BID 06/10/2506/2706/27/25 History nitroglycerin 0.4 mg sublingual See Rx Instructions .R oute .COMPLEX 06/10/25 06/27/25 Unknown History tablet isosorbide mononitrate 30 mg 30 mg PO QAM 06/27/2505/1206/27/25 History tablet,extended release 24 hr lisinopril 40 mg tablet 40 mg PO DAILY 06/27/2506/18 Unknown History Allergies Allergy/AdvReac Type Severity Reaction Status Date / Time No Known Allergies Allergy Verified 06/27/25 08:42 Current Medications Generic Name Dose Route Start Last Admin Trade Name Freq PRN Reason Stop Dose Admin Heparin Sodium/Sodium Chloride 25,000 unit in 500 mls @ 18.96 mls/hr 06/27/25 10:15 06/27/25 14:10 Heparin Drip IV 12.03 unit/kg/hr CONT FLORENTIN 19 mls/hr Protocol Titration 12 UNIT/KG/HR PFSH Acute 2 PFSH: Medical History (Updated 06/27/25 @ 16:12 by Vaishali Duong NP) Diabetes mellitus Hypertension Social History Smoking and tobacco/nicotine status: never used tobacco/nicotine Vitals/I&O/Wt Last Vital Signs Temp 97.9 F 06/27/25 15:35 Pulse 55 L 06/27/25 15:35 Resp 18 06/27/25 15:35 BP 145/81 06/27/25 15:35 Pulse Ox 92 06/27/25 15:35 O2 Del Method Room Air 06/27/25 14:12 06/27/25 06/27/25 06/27/25 06:59 14:59 22:59 Intake Total 55.839 / 55.839 Balance 55.839 / 55.839 Weight last 48 hrs Weight 174 lb 2.643 oz Weight 170 lb Physical Exam 2 Narrative: General: No apparent distress HENMT: normoceophalic Neck: No carotid bruit bilaterally Muskuloskeletal: Full ROM Respiratory: Normal respiratory effort, clear to auscultation bilaterally throughout all lung justin, no use of accessory muscles Cardio: No JVD, regular rate (luciana), regular rhythm, S1 S2 normal, no murmurs, peripheral pulses 2+ radial palpated bilaterally, 2+ PT bilaterally palpated GI: nondistended Extremities: Full ROM, normal, normal capillary refill, no cyanosis or edema Neuro: Alert and oriented x4, no focal motor deficits Psych: Affect normal, denies suicidal ideation, mental status grossly normal Skin: No rashes or lesions noted, no wounds Data 06/27/25 10:00 06/27/25 10:00 A&P Assessment and plan 1. Multi-vessel coronary artery stenosis: 2. Paroxysmal atrial fibrillation with rapid ventricular response: 3. Bradycardia: 4. Essential hypertension: 5. Shortness of breath: Plan: Patient spontaneously converted to sinus rhythm with bradycardia. Prenting like tachy luciana but needs to be revascularized. Recommend continue heparin drip. Hold off on amio. Will continue to monitor on tele. Avoid liz blocking agents at this time. Continue aspirin, hydralazine, amlodipine, initiate atorvastatin 40 and see how patient tolerates this, lipid panel looks ok Discussed case with Dr. Kendrick who states patient had a high frailty score and was not a good candidate for CABG and was undecided about whether he wanted surgery or not. Will discuss further with family and review angiogram for further recommendations. He will need revascularization. After, rhythm issue may resolve. Reevaluate need for pacemaker at that time. Thank you, Dr. Connors, for allowing us to care for this very pleasant 74 year old gentleman. PDMP PDMP Reviewed: Not Reviewed Consult Attestations 2 Medical Necessity Statement: Stay expected to cross 2 midnights due to afib rvr, tachy luciana syndrome, multivessel coronary artery disease. Coding Level of Care Code Acute Code for [facility] Fwd Diagnoses Multi-vessel coronary artery stenosis I25.10 Paroxysmal atrial fibrillation with rapid ventricular response I48.0 Bradycardia R00.1 Essential hypertension I10 Shortness of breath R06.02
--- NOTE | 2025-06-27 16:31 | ECG_ITS ---
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 Measurements Intervals [place] Rate: 59 P: 62 [place]: 145 QRS: -15 QRSD: 96 T: 100 QT: 433 QTc: 430 Interpretive Statements SINUS BRADYCARDIA WITH OCCASIONAL VENTRICULAR PREMATURE COMPLEXES NONSPECIFIC T-WAVE ABNORMALITY Compared to ECG 06/27/2025 11:26:35 Ventricular premature complex(es) now present T-wave abnormality still present Poor R wave progression Electronically Signed On 06-28-2025 17:46:[address] [employer]FFIC [employer]OL TECHNICIAN by Jose Huber M.D. [email or web address]
[2025-06-27 18:51] LABS: Partial Thromboplastin Time 42.5 SECONDS (23.9-36.7)
[2025-06-27 19:07] LABS: Troponin 5 6HR 29.32 ng/L (0-15)
[2025-06-27 19:08] LABS: Troponin 5 6HR Delta -1.68 ng/L (0-12)
[2025-06-27 19:55] LABS: Add On to Lab Order(s) Added
--- NOTE | 2025-06-27 22:01 | PC.NURSE ---
patient left via EMS at 2155 patients family was at bedside, all belongs left facility with either the patient or family member, left on heparin gtt running at 14units/kg/hour at 22 mLs, called [facility] and stated that the patient was on there way to them
== END 2025-06-27 21:55 | disposition short-term general hospital (02) ==
LOC: ER 10:53 → CSU 13:08
PROVIDERS: Admitting Provider Student in an Organized Health Care Education/Training Program; Emergency Provider Family Medicine; PCP Family Medicine; Visit Provider Nurse Practitioner Gerontology
DX: I25.10 Atherosclerotic heart disease of native coronary artery without angina pectoris (principal); I48.0 Paroxysmal atrial fibrillation; R00.1 Bradycardia, unspecified; I49.5 Sick sinus syndrome; E11.22 Type 2 diabetes mellitus with diabetic chronic kidney disease; I12.9 Hypertensive chronic kidney disease with stage 1 through stage 4 chronic kidney disease, or unspecified chronic kidney disease; N18.31 Chronic kidney disease, stage 3a; Z86.73 Personal history of transient ischemic attack (TIA), and cerebral infarction without residual deficits; E78.5 Hyperlipidemia, unspecified; Z79.82 Long term (current) use of aspirin; Z79.84 Long term (current) use of oral hypoglycemic drugs
CPT/HCPCS: 36415; 36416; 71045; 80053; 80061; 82550; 82962; 83735; 83880; 84484; 85025; 85730; 93005; 96365; 96366; 96372; 96375; 99214; 99285; G0378; J1644; J1815